=== PATIENT | male | born 1950 | race Caucasian/White ===

== ENCOUNTER 2016-10-11 04:20 | Day surgery (SDC) | payer MEDICARE, OTHER ==
[~2016-10-11] VITALS: Ht 185.4 cm; Wt 87.5 kg
[2016-10-11] VITALS (10 sets, daily range): BP systolic 121–151; BP diastolic 70–92
[~2016-10-11 04:20] MED LIST: ASPI-504 PO; ATR20T PO; CEPH-507 PO; GLIM2TAB PO; GLIMEPRIDE; HYDR-1231 PO; HYDR-3876 PO; INDO25CA PO; LISI-552 PO; LISI10TA2 PO; METH4TAB PO; MTF500T PO; MTP25TSR PO; OMEP-10 PO; ROSU20TA PO; SULF1TAB35 PO; SULI150T PO
--- OUTSIDE RECORDS SUMMARY | 2016-10-11 04:26 | XMS REPORT | Continuity of Care Document ---
Author Author [facility] Organization [facility] Address Unknown Phone Unavailable Allergies Active Description Code Type Severity Reaction Onset Reported/Identified Relationship to Patient Clinical Status Yes No Known Drug Allergies [id number] Drug Allergy Unknown N/ A 05/16/2013 Medications Problems Date Dx Coded Attending Type Code Diagnosis Diagnosed By 05/16/2013 NATAN CISSE DO Ot 682.6 05/16/2013 NATAN CISSE DO Ot 719.45 09/10/2013 GELLENDER DO AUGIE Ghotra Ot 250.00 09/10/2013 GELLENDER DO AUGIE Ghotra Ot 272.4 09/10/2013 GELLENDER DO AUGIE Ghotra Ot 401.9 09/10/2013 GELLENDER DO AUGIE Ghotra Ot 729.89 09/10/2013 GELLENDER DO AUGIE Ghotra Ot 781.94 09/10/2013 GELLENDER DO, AUGIE Ghotra Ot 782.0 09/10/2013 GELLENDER DO AUGIE Ghotra Ot 786.05 09/10/2013 GELLENDER DO AUGIE Ghotra Ot 786.52 01/06/2014 GELLENDER DO AUGIE Ghotra Ot 603.9 02/23/2015 BAIBLAIR GALAN STRUCTURAL MANAGER Ot 272.4 02/23/2015 BAIBLAIR GALAN STRUCTURAL MANAGER Ot 401.9 02/23/2015 BAIBLAIR GALAN STRUCTURAL MANAGER Ot 427.1 02/23/2015 BLAIR RUCKER STRUCTURAL MANAGER Ot 786.50 02/23/2015 BLAIR RUCKER STRUCTURAL MANAGER Ot V58.69 02/23/2015 GELLENDER DOAUGIE Paradise Ot 603.9 03/15/2015 SANGEETHA LYNN, NIKKI Ghotra Ot E11.9 03/15/2015 SANGEETHA LYNN, NIKKI Ghotra Ot N43.3 03/30/2015 Ot N43.3 03/30/2015 Ot Z01.818 03/30/2015 Ot Z11.2 Procedures Results Encounters ACCT No. Visit Date/Time Discharge Status Pt. Type Provider Facility Loc./Unit Complaint [id number] 03/15/2015 06:00:00 2015 10:38:00 DIS Outpatient [facility] [id number] 02/23/2015 10:34:00 2015 23:59:59 CLS Outpatient AUGIE DOUGLASS DO [facility] RAD [id number] 12/24/2013 11:07:00 2013 23:59:59 CLS Outpatient AUGIE DOUGLASS DO [facility] RAD [id number] 11/23/2013 08:21:00 2013 23:59:59 CLS Outpatient BLAIR RUCKER [facility] CARD [id number] 09/08/2013 23:46:00 2013 11:15:00 DIS Inpatient AUGIE DOUGLASS DO [facility] ICU [id number] 05/16/2013 03:28:00 2013 04:10:00 DIS Emergency NATAN CISSE DO [facility] ER [id number] 03/09/2015 12:55:00 Document Registration
[2016-10-11] MEDS ORDERED: morphine INJ 10 MG/ML 1ML (SYR OR VIAL) IV STA (04:31)
[2016-10-11] MEDS ORDERED: NS IV 500 ML 500 ML IV ONE ×2 (04:31→05:03)
[2016-10-11 04:39] LABS: BASOPHILS # (AUTO) 0.1 10^3/uL (0.0-0.1); BASOPHILS % (AUTO) 1 % (0-10); EOSINOPHILS # (AUTO) 0.3 10^3/uL (0.0-0.3); EOSINOPHILS % (AUTO) 3 % (0-10); LYMPHOCYTES # (AUTO) 2.5 X 10^3 (1.0-4.0); LYMPHOCYTES % (AUTO) 34 % (12-44); MEAN CORPUSCULAR HEMOGLOBIN 24 PG (25-34); MEAN CORPUSCULAR HGB CONC 33 G/DL (32-36); MEAN CORPUSCULAR VOLUME 75 FL (80-99); MEAN PLATELET VOLUME 9.9 FL (7.4-10.4); MONOCYTES # (AUTO) 0.6 X 10^3 (0.0-1.0); MONOCYTES % (AUTO) 9 % (0-12); NEUTROPHILS # (AUTO) 3.9 X 10^3 (1.8-7.8); NEUTROPHILS % (AUTO) 53 % (42-75); PLATELET COUNT 351 10^3/uL (130-400); RED BLOOD COUNT 5.16 10^6/uL (4.35-5.85); RED CELL DISTRIBUTION WIDTH 16.4 % (10.0-14.5); WHITE BLOOD COUNT 7.4 10^3/uL (4.3-11.0)
[2016-10-11] MEDS ORDERED: ASPIRIN 81 MG CHEW (CHILDREN'S ASA) PO ONE (04:45)
[2016-10-11] MEDS ORDERED: RX-NITROGLYCERIN 0.4 MG TAB BTL 25'S SL PRN (04:45)
[2016-10-11 04:52] LABS: INR 0.8 (0.8-1.4); PROTHROMBIN TIME PATIENT 11.5 SEC (12.2-14.7)
--- NOTE | 2016-10-11 04:54 | ED Chest Pain ---
General Chief Complaint: Chest Pain Stated Complaint: CHEST PAIN,DIZZINESS Nursing Triage Note: PT REPORTS HE HAS CP RADIATING TO HIS NECK THAT WOKE HIM FROM HIS SLEEP AT APPROX 0200 THIS AM. HE ALSO C/O HTN AND DIZZINESS. HE DENIES N/V, DIAPHORESIS, OR SOA. PT REPORTS TAKING 162 MG [employer]. Nursing Sepsis Screen: No Definite Risk Source: patient, spouse Exam Limitations: no limitations (ENRRIQUE BUTLER) History of Present Illness Time seen by provider: 04:42 Initial Comments Patient presents to ER by private conveyance with a chief complaint of being woken just prior to arrival by some left sided chest pain that radiates up his neck both sides to his jaw. He has no numbness tingling, sweats, nausea, vomiting, shortness of breath, cough, weakness, palpitations. He does not smoke however he is diabetic but not on insulin. He does not have thyroid disease but does have high blood pressure. He did have a father with stroke and heart attack at age 49. He himself has never had coronary artery disease. He says he has had 2 negative stress tests in the last for 5 years. He does have hypercholesterolemia and is on simvastatin for it. (ENRRIQUE BUTLER) Allergies and Home Medications Allergies Coded Allergies: No Known Drug Allergies (Unverified , 05/16/13) Home Medications Cephalexin 500 Mg Capsule, 500 MG PO BID, #10 Prescribed by: LESTER HARPER on 03/15/15 0818 Glimepiride 2 Mg Tablet, 2 MG PO DAILY, (Reported) Hydrocodone/Acetaminophen 1 Each Tablet, 1-2 EACH PO PRN, #30 Prescribed by: LESTER HARPER on 03/15/15 0818 Lisinopril 20 Mg Tablet, 20 MG PO DAILY, (Reported) Metformin Hcl 500 Mg Tablet, 500 MG PO BID WITH MEALS, (Reported) Rosuvastatin Calcium 20 Mg Tablet, 20 MG PO HS, (Reported) Review of Systems Constitutional: see HPI, No chills, No diaphoresis Respiratory: Denies Cough, Denies Orthopnea, Denies Shortness of Air Cardiovascular: See HPI, Chest Pain, Denies Edema, Denies Irregular Heart Rate , Denies Syncope Gastrointestinal: Denies Diarrhea, Denies Nausea Genitourinary: Denies Burning, Denies Discharge Musculoskeletal: No back pain, No joint pain Skin: No pruritus, No rash Psychiatric/Neurological: Headache, Denies Numbness, Denies Paresthesia (ENRRIQUE BUTLER) Past Pmhtgxo-Qopdtc-Dzciqj Hx Patient Social History Alcohol Use: Denies Use Recreational Drug Use: No Smoking Status: Never a Smoker 2nd Hand Smoke Exposure: No Recent Foreign Travel: No Contact w/Someone Who Travel: No Recent Infectious Disease Expo: No Physical Abuse: No Sexual Abuse: No (ENRRIQUE BUTLER) Immunizations Up To Date Tetanus Booster (TDap): Unknown Date of Pneumonia Vaccine: Mar 15, 2013 Date of Influenza Vaccine: Feb 17, 2015 (ENRRIQUE BUTLER) Surgeries History of Surgeries: Yes (CATARACTS, EYELID TUCK, ) Surgeries: Testicular (ENRRIQUE BUTLER) Respiratory History of Respiratory Disorde: No (ENRRIQUE BUTLER) Cardiovascular History of Cardiac Disorders: Yes Cardiac Disorders: High Cholesterol, Hypertension (ENRRIQUE BUTLER) Neurological History of Neurological Disord: No (ENRRIQUE BUTLER) Gastrointestinal History of Gastrointestinal Di: No (ENRRIQUE BUTLER) Musculoskeletal History of Musculoskeletal Dis: No Musculoskeletal Disorders: Gout (ENRRIQUE BUTLER) Endocrine History of Endocrine Disorders: Yes Endocrine Disorders: Diabetes, Non-Insulin dep (ENRRIQUE BUTLER) Cancer History of Cancer: No (ENRRIQUE BUTLER) Psychosocial History of Psychiatric Problem: No Suicide Risk Score: 0 (ENRRIQUE BUTLER) Integumentary History of Skin or Integumenta: No (ENRRIQUE BUTLER) Blood Transfusions History of Blood Disorders: No (ENRRIQUE BUTLER) Family Medical History Family Medial History: Cataract 19 FATHER Chest pain 19 MOTHER Dementia 19 MOTHER Family history: Alzheimer's disease 19 MOTHER Family history: Arthritis 19 MOTHER Family history: Diabetes mellitus 19 MOTHER Family history: Hypertension 19 FATHER 19 MOTHER G8 SISTER Headache Hypercholesterolemia 19 FATHER 19 MOTHER G8 SISTER Kidney disease 19 FATHER Prostate cancer 19 FATHER Stroke 19 FATHER Visual impairment 19 MOTHER G8 BROTHER G8 BROTHER G8 SISTER No Family History of: Abdominal aortic aneurysm Michael's disease Alcoholism Aphasia Cancer Cancer of colon Congenital heart disease Congestive heart failure Cystic fibrosis Dysphagia Family history: Allergy Family history: Asthma Family history: Breast disease Family history: Cardiovascular disease Family history: Coronary thrombosis Family history: Gastrointestinal disease Family history: Glaucoma Family history: Osteoporosis Family history: Thyroid disorder Hearing loss Heart disease Hereditary disease History of - anemia History of - disorder History of - respiratory disease History of drug abuse Human immunodeficiency virus (HIV) seropositivity Infertile Malignant neoplasm of lung Myocardial infarction Parkinson's disease Psychotic disorder Seizure disorder Tuberculosis (ENRRIQUE BUTLER) Family Medial History: Cataract 19 FATHER Chest pain 19 MOTHER Dementia 19 MOTHER Family history: Alzheimer's disease 19 MOTHER Family history: Arthritis 19 MOTHER Family history: Diabetes mellitus 19 MOTHER Family history: Hypertension 19 FATHER 19 MOTHER G8 SISTER Headache Hypercholesterolemia 19 FATHER 19 MOTHER G8 SISTER Kidney disease 19 FATHER Prostate cancer 19 FATHER Stroke 19 FATHER Visual impairment 19 MOTHER G8 BROTHER G8 BROTHER G8 SISTER No Family History of: Abdominal aortic aneurysm Michael's disease Alcoholism Aphasia Cancer Cancer of colon Congenital heart disease Congestive heart failure Cystic fibrosis Dysphagia Family history: Allergy Family history: Asthma Family history: Breast disease Family history: Cardiovascular disease Family history: Coronary thrombosis Family history: Gastrointestinal disease Family history: Glaucoma Family history: Osteoporosis Family history: Thyroid disorder Hearing loss Heart disease Hereditary disease History of - anemia History of - disorder History of - respiratory disease History of drug abuse Human immunodeficiency virus (HIV) seropositivity Infertile Malignant neoplasm of lung Myocardial infarction Parkinson's disease Psychotic disorder Seizure disorder Tuberculosis (YOLETTE LIND MD) Physical Exam Vital Signs Vital Sign - Last 12Hours (YOLETTE LIND MD) Vital Signs Capillary Refill : Less Than 3 Seconds (ENRRIQUE BUTLER) General Appearance: WD/WN, Anxious, Mild Distress HEENT: PERRL/EOMI, Pharynx Normal Neck: Full Range of Motion, Normal Inspection, Supple Respiratory: Chest Non Tender, Lungs Clear, Normal Breath Sounds, No Accessory Muscle Use Cardiovascular: Regular Rate, Rhythm, No Edema, No Gallop Gastrointestinal: Normal Bowel Sounds, No Organomegaly, Non Tender, Soft Extremity: Normal Capillary Refill, Normal Inspection, Non Tender, No Calf Tenderness, No Pedal Edema Neurologic/Psychiatric: Alert, Oriented x3 Skin: Normal Color, Warm/Dry (ENRRIQUE BUTLER) Progress/Results/Core Measures Results/Orders Lab Results Laboratory Tests Test 10/11/16 04:28 Range/Units White Blood Count 7.4 4.3-11.0 10^3/uL Red Blood Count 5.16 4.35-5.85 10^6/uL Hemoglobin 12.6 L 13.3-17.7 G/DL Hematocrit 39 L 40-54 % Mean Corpuscular Volume 75 L 80-99 FL Mean Corpuscular Hemoglobin 24 L 25-34 PG Mean Corpuscular Hemoglobin Concent 33 32-36 G/DL Red Cell Distribution Width 16.4 H 10.0-14.5 % Platelet Count 351 130-400 10^3/uL Mean Platelet Volume 9.9 7.4-10.4 FL Neutrophils (%) (Auto) 53 42-75 % Lymphocytes (%) (Auto) 34 12-44 % Monocytes (%) (Auto) 9 0-12 % Eosinophils (%) (Auto) 3 0-10 % Basophils (%) (Auto) 1 0-10 % Neutrophils # (Auto) 3.9 1.8-7.8 X 10^3 Lymphocytes # (Auto) 2.5 1.0-4.0 X 10^3 Monocytes # (Auto) 0.6 0.0-1.0 X 10^3 Eosinophils # (Auto) 0.3 0.0-0.3 10^3/uL Basophils # (Auto) 0.1 0.0-0.1 10^3/uL Prothrombin Time 11.5 L 12.2-14.7 SEC INR Comment 0.8 0.8-1.4 Activated Partial Thromboplast Time 27 24-35 SEC D-Dimer 1.62 H 0.00-0.49 UG/ML Sodium Level 135 135-145 MMOL/L Potassium Level 4.3 3.6-5.0 MMOL/L Chloride Level 102 98-107 MMOL/L Carbon Dioxide Level 22 21-32 MMOL/L Anion Gap 11 5-14 MMOL/L Blood Urea Nitrogen 15 7-18 MG/DL Creatinine 1.30 0.60-1.30 MG/DL Estimat Glomerular Filtration Rate 55 BUN/Creatinine Ratio 12 Glucose Level 219 H 70-105 MG/DL Calcium Level 9.6 8.5-10.1 MG/DL Magnesium Level 1.5 L 1.8-2.4 MG/DL Total Bilirubin 0.2 0.1-1.0 MG/DL Aspartate Amino Transf (AST/SGOT) 15 5-34 U/L Alanine Aminotransferase (ALT/SGPT) 20 0-55 U/L Alkaline Phosphatase 82 40-136 U/L Myoglobin 48.0 10.0-92.0 NG/ML Troponin I < 0.30 <0.30 NG/ML Total Protein 7.3 6.4-8.2 GM/DL Albumin 4.0 3.2-4.5 GM/DL Lipase 89 H 8-78 U/L (YOLETTE LIND MD) Medications Given in ED Current Medications Medications Dose Ordered Sig/Chapito Route Start Time Stop Time Status Last Admin Dose Admin Aspirin 162 mg ONCE ONCE PO 10/11/16 04:45 10/11/16 04:46 DC 10/11/16 04:49 162 MG Iohexol 100 ml ONCE ONCE IV 10/11/16 06:00 10/11/16 06:37 DC 10/11/16 05:59 100 ML Magnesium Oxide 400 mg ONCE ONCE PO 10/11/16 05:30 10/11/16 05:31 DC 10/11/16 06:32 400 MG Nitroglycerin 0.4 mg PRN PRN SL 10/11/16 04:45 10/11/16 04:49 0.4 MG Pantoprazole 40 mg ONCE ONCE IV 10/11/16 05:45 10/11/16 05:46 DC 10/11/16 06:32 40 MG Sodium Chloride 80 ml ONCE ONCE IV 10/11/16 06:00 10/11/16 06:37 DC 10/11/16 05:59 80 ML Sodium Chloride 500 ml @ 0 mls/hr Q0M ONCE IV 10/11/16 04:31 10/11/16 04:35 DC 10/11/16 04:49 0 MLS/HR Sodium Chloride 500 ml @ 0 mls/hr Q0M ONCE IV 10/11/16 05:03 10/11/16 05:04 DC 10/11/16 05:00 0 MLS/HR Sodium Chloride 1,000 ml @ 0 mls/hr Q0M ONCE IV 10/11/16 05:29 10/11/16 05:31 DC 10/11/16 06:05 0 MLS/HR (YOLETTE LIND MD) Vital Signs/I&O Vital Sign - Last 12Hours 10/11/16 10/11/16 10/11/16 04:20 04:20 04:30 Temp 98.2 Pulse 67 Resp 18 B/P (MAP) 169/98 Pulse Ox 97 99 O2 Delivery Room Air Nasal Cannula Nasal Cannula O2 Flow Rate 2.0 2.0 2.00 (YOLETTE LIND MD) Blood Pressure Mean: 121 Progress Note #1: Time: 04:51 Progress Note For chest pain that started just prior to arrival is unlikely we will be able to rule out single troponin and EKG. Initial EKG is unremarkable so we'll go ahead and give him nitroglycerin and couple milligrams of morphine as well as oxygen and see how this helps his symptoms. If it'll make a big difference then we will try a GI cocktail as well. Progress Note #2: Time: 05:02 Progress Note EMS informs me that he will not be able to transport the patient will after 8: 00. About that time is when troponin and EKG #2 would be do so we'll go ahead and order them scheduled. Patient is stable with modest moderate chest pain. Blood pressures in the 170s over 90s. Progress Note #3: Time: 05:36 Progress Note Pancreatic enzyme elevated. We'll go ahead and get a CT abdomen pelvis with contrast give him another liter fluids is to be towed total. He did have a hypotensive episode after receiving the nitroglycerin. He felt that after receiving the morphine his pain did improve some. We'll also give him a PPI. (ENRRIQUE BUTLER) Progress Note : Time: 07:09 Progress Note Telephone consultation was undertaken with Dr. Gamble was kind enough to admit the patient. Orders been written patient will be transferred to floor. I consult Dr. Mireles as well. (YOLETTE LIND MD) ECG Initial ECG Impression Date: Oct 11, 2016 Initial ECG Impression Time: 04:25 Initial ECG Rate: 59 Initial ECG Rhythm: Normal Sinus Initial ECG Intervals: VT (212) Initial ECG Impression: Nonspecific Changes (right bundle-branch block) Initial ECG Comparisson: No Previous ECG Available Comment No ST wave elevation or depression. (ENRRIQUE BUTLER) Diagnostic Imaging Diagonstic Imaging: Xray Plain Films/CT/US/NM/MRI: chest Reviewed: Reviewed by Me (ENRRIQUE BUTLER) Transfer of Care Transfer of Care Time: 06:32 Care transferred to: [place] (ENRRIQUE BUTLER) Departure Communication Time/Spoke to Admitting Phy: 07:[address] Douglass. Time/Spoke to Consulting Physi: 07:11 Communication/Consulting Dr. Mireles. (YOLETTE LIND MD) Impression Impression: Primary Impression: Chest pain Qualified Codes: R07.9 - Chest pain, unspecified Disposition: 09 ADMITTED INPATIENT Condition: Improved Admissions Decision to Admit Reason: Admit from ER (General) Decision to Admit/Date: Oct 11, 2016 Time/Decision to Admit Time: 07:11 (YOLETTE LIND MD) Departure-Patient Inst. Referrals: AUGIE DOUGLASS DO (PCP/Family) Primary Care Physician Copy Copies To 1: AUGIE DOUGLASS TITUS J Oct 11, 2016 04:54 YOLETTE LIND MD Oct 11, 2016 07:12
[2016-10-11 04:59] LABS: ALANINE AMINOTRANSFERASE 20 U/L (0-55); ANION GAP 11 MMOL/L (5-14); ASPARTATE AMINO TRANSFERASE 15 U/L (5-34); BILIRUBIN,TOTAL 0.2 MG/DL (0.1-1.0); BLOOD UREA NITROGEN 15 MG/DL (7-18); BUN/CREATININE RATIO 12; CALCIUM 9.6 MG/DL (8.5-10.1); CARBON DIOXIDE 22 MMOL/L (21-32); CHLORIDE 102 MMOL/L (98-107); GFR ESTIMATED 55; GLUCOSE 219 MG/DL (70-105); LIPASE 89 U/L (8-78); MAGNESIUM 1.5 MG/DL (1.8-2.4); POTASSIUM 4.3 MMOL/L (3.6-5.0); SODIUM 135 MMOL/L (135-145); TOTAL PROTEIN 7.3 GM/DL (6.4-8.2)
[2016-10-11] MEDS ORDERED: NS IV 1000 ML 1,000 ML IV ONE (05:29)
[2016-10-11] MEDS ORDERED: MAGNESIUM OXIDE (MAG-OX)400 MG TAB PO ONE (05:30)
[2016-10-11] MEDS ORDERED: PANTOPRAZOLE 40 MG/10 ML (PROTONIX) VIAL IV ONE (05:45)
[2016-10-11] MEDS ORDERED: IOHEXOL 350 MG/ML 100 ML (OMNIPAQUE 350) VIAL IV ONE (06:00)
[2016-10-11] MEDS ORDERED: NS 100 ML (IVPB) BAG IV ONE (06:00)
--- OUTSIDE RECORDS SUMMARY | 2016-10-11 08:03 | XMS REPORT | Continuity of Care Document ---
Author Author [facility] Organization [facility] Address Unknown Phone Unavailable Allergies Active Description Code Type Severity Reaction Onset Reported/Identified Relationship to Patient Clinical Status Yes No Known Drug Allergies [id number] Drug Allergy Unknown N/ A 05/16/2013 Medications [...] AUGIE Ghotra Ot 603.9 02/23/2015 BAIBLAIR GALAN RELASTER Ot 272.4 02/23/2015 BAIBLAIR GALAN RELASTER Ot 401.9 02/23/2015 BAIBLAIR GALAN RELASTER Ot 427.1 02/23/2015 BLAIR RUCKER RELASTER Ot 786.50 02/23/2015 BLAIR RUCKER RELASTER Ot V58.69 02/23/2015 GELLENDER DOAUGIE Paradise Ot 603.9 03/15/2015 SANGEETHA LYNN, NIKKI Ghotra Ot E11.9 03/15/2015 SANGEETHA LYNN, NIKKI Ghotra Ot N43.3 03/30/2015 Ot N43.3 03/30/2015 Ot Z01.818 03/30/2015 Ot Z11.2 Procedures Results Encounters ACCT No. Visit Date/Time Discharge Status Pt. Type Provider Facility Loc./Unit Complaint [id number] 03/15/2015 06:00:00 2015 10:38:00 DIS Outpatient [facility] [id number] 02/23/2015 10:34:00 2015 23:59:59 CLS Outpatient AUGIE DOUGLASS DO [facility] RAD [id number] 12/24/2013 11:07:00 2013 23:59:59 CLS Outpatient AUGIE DOUGLASS DO [facility] RAD [id number] 11/23/2013 08:21:00 2013 23:59:59 CLS Outpatient BLAIR RUCKER [facility] CARD [id number] 09/08/2013 23:46:00 2013 11:15:00 DIS Inpatient AUGIE DOUGLASS DO [facility] ICU [id number] 05/16/2013 03:28:00 2013 04:10:00 DIS Emergency NATAN CISSE DO [facility] ER [id number] 03/09/2015 12:55:00 Document Registration
[2016-10-11] MEDS ORDERED: NITROGLYCERIN SUBLINGUAL 0.4 MG TAB (NITROSTAT) SL PRN (08:30)
[2016-10-11] MEDS ORDERED: morphine INJ 4 MG/ML 1 ML (VIAL/SYRINGE) IV PRN (08:30)
[2016-10-11] MEDS ORDERED: CATHETER FLUSH 10 ML SYR IV PRN (08:30)
[2016-10-11] MEDS ORDERED: ONDANSETRON 4 MG/2 ML (SDV) Z0FRAN IV PRN (08:30)
--- NOTE | 2016-10-11 08:31 | Diagnostic Imaging Report ---
INDICATION: Chest pain. Frontal chest obtained at 5:09 a.m. and compared to 09/08/13. FINDINGS: Heart and mediastinal silhouette are normal in appearance. The lungs are clear. There is no pneumothorax or pleural fluid. IMPRESSION: No acute process in the chest. Dictated by: Dictated on workstation # [id number]
--- NOTE | 2016-10-11 08:43 | History & Physicial ---
History of Present Illness History of Present Illness Reason for visit/HPI chest pain. Patient at home sleeping and chest pain woke him out of the sleep. Pain went to the neck and had a headache and was dizzy. Patient states he took 2 baby aspirin came out to the emergency room. Blood pressure was elevated and felt like a squeezing in his chest Patient known diabetic. Surgeries cataract and testicular tumor Father heart attack age 49 and diabetes family Date of Admission Oct 11, 2016 at 05:55 Time Seen by Provider: 08:35 I consulted on this patient on 10/11/16 08:39 Attending Physician Frederick Douglass DO Admitting Physician Frederick Douglass DO Consult Allergies and Home Medications Allergies Coded Allergies: No Known Drug Allergies (Unverified , 05/16/13) Home Medications Cephalexin 500 Mg Capsule, 500 MG PO BID, #10 Prescribed by: LESTER HARPER on 03/15/15 0818 Glimepiride 2 Mg Tablet, 2 MG PO DAILY, (Reported) Hydrocodone/Acetaminophen 1 Each Tablet, 1-2 EACH PO PRN, #30 Prescribed by: LESTER HARPER on 03/15/15 0818 Lisinopril 20 Mg Tablet, 20 MG PO DAILY, (Reported) Metformin Hcl 500 Mg Tablet, 500 MG PO BID WITH MEALS, (Reported) Rosuvastatin Calcium 20 Mg Tablet, 20 MG PO HS, (Reported) Past Affrvrl-Colvqb-Jeywwk Hx Patient Social History Marrital Status: Employed/Student: employed Alcohol Use: Denies Use Recreational Drug Use: No Smoking Status: Never a Smoker 2nd Hand Smoke Exposure: No Recent Foreign Travel: No Contact w/other who traveled: No Recent Infectious Disease Expo: No Immunizations Up To Date Tetanus Booster (TDap): Unknown Date of Pneumonia Vaccine: Mar 15, 2013 Date of Influenza Vaccine: Feb 17, 2015 Surgeries Yes (CATARACTS, EYELID TUCK, ) Eye Surgery, Testicular Respiratory No Cardiovascular Yes High Cholesterol, Hypertension Neurological No Gastrointestinal No Musculoskeletal No Gout Endocrine History of Endocrine Disorders: Yes Endocrine Disorders: Diabetes, Non-Insulin dep Cancer No Psychosocial History of Psychiatric Problem: No Integumentary History of Skin or Integumenta: No Blood Transfusions History of Blood Disorders: No Family Medical History Family Hx: Cataract 19 FATHER Chest pain 19 MOTHER Dementia 19 MOTHER Family history: Alzheimer's disease 19 MOTHER Family history: Arthritis 19 MOTHER Family history: Diabetes mellitus 19 MOTHER Family history: Hypertension 19 FATHER 19 MOTHER G8 SISTER Headache Hypercholesterolemia 19 FATHER 19 MOTHER G8 SISTER Kidney disease 19 FATHER Prostate cancer 19 FATHER Stroke 19 FATHER Visual impairment 19 MOTHER G8 BROTHER G8 BROTHER G8 SISTER No Family History of: Abdominal aortic aneurysm [place]'s disease Alcoholism Aphasia Cancer Cancer of colon Congenital heart disease Congestive heart failure Cystic fibrosis Dysphagia Family history: Allergy Family history: Asthma Family history: Breast disease Family history: Cardiovascular disease Family history: Coronary thrombosis Family history: Gastrointestinal disease Family history: Glaucoma Family history: Osteoporosis Family history: Thyroid disorder Hearing loss Heart disease Hereditary disease History of - anemia History of - disorder History of - respiratory disease History of drug abuse Human immunodeficiency virus (HIV) seropositivity Infertile Malignant neoplasm of lung Myocardial infarction Parkinson's disease Psychotic disorder Seizure disorder Tuberculosis Constitutional: dizziness, other (headache chest pain) EENTM: no symptoms reported Respiratory: no symptoms reported Cardiovascular: chest pain Gastrointestinal: no symptoms reported Genitourinary: no symptoms reported Physical Exam Vital Signs Vital Sign - Last 12Hours Capillary Refill : Less Than 3 Seconds General Appearance: No Apparent Distress, WD/WN Eyes: Bilateral Eye Normal Inspection HEENT: Normal ENT Inspection Neck: Full Range of Motion, Non Tender Respiratory: Lungs Clear, No Accessory Muscle Use, No Respiratory Distress Cardiovascular: Regular Rate, Rhythm, No Murmur Gastrointestinal: Non Tender, Soft Assessment/Plan Assessment and Plan chest pain. Headache. Dizziness. Hypertension. Diabetes. Hyperlipidemia Problems: Clinical Quality Measures AMI/AHF: ASA po Prior to arrival: Yes (162) FREDERICK DOUGLASS DO Oct 11, 2016 08:43
[2016-10-11] MEDS ORDERED: ENOXAPARIN 40 MG/0.4 ML (LOVENOX) SYR SC SCH (08:45)
[2016-10-11] MEDS ORDERED: ASPIRIN E.C. 325 MG (ECOTRIN) TABLET PO SCH (09:00)
--- NOTE | 2016-10-11 09:05 | Diagnostic Imaging Report ---
PROCEDURE: CT abdomen and pelvis with contrast. TECHNIQUE: Multiple contiguous axial images were obtained through the abdomen and pelvis after administration of intravenous contrast. INDICATION: Radiating chest pain. FINDINGS: The lung bases are clear. The liver, gallbladder, spleen, adrenals and pancreas unremarkable. There is no kidney stone or hydronephrosis. There is no ascites, abscess, hematoma or fluid collection. There is herniation of a short segment of unobstructed small bowel into the upper aspect of a right inguinal hernia. A left inguinal hernia is entirely fatty. There is no evidence for obstruction or strangulation. There is a noninflamed sigmoid diverticulosis. Prostate, seminal vesicles and urinary bladder unremarkable. Some questionable thickening of the carrillo of a segment of mid to distal small bowel at and below the level of the umbilicus. The possibility of mild regional enteritis could not be excluded this is probably at least exaggerated by lack of luminal distention. There was no perienteric edema. The appendix is air-containing and normal. IMPRESSION: Bilateral inguinal hernias fatty on the left and comprised of a short segment of nonobstructed small bowel on the right. Normal appendix with noninflamed diverticulosis. A questionable findings for mild of small bowel wall thickening mid to distally without perienteric edema. Unobstructed urinary tracts. No biliary abnormality. Dictated by: Dictated on workstation # [id number]
--- NOTE | 2016-10-11 09:08 | Consultation-Cardiology ---
HPI-Cardiology Cardiology Consultation Date of Consultation 10/11/16 Date of Admission Time Seen by Provider: 09:05 Indication: chest pain HPI 66 years old gentleman with history of hypertension, hyperlipidemia and diabetes mellitus, was in his usual state of health until early this morning, around midnight he woke up with chest pressure, all over his chest and pin pointing some discomfort at the left side of his chest, had some neck pain, felt slightly dizzy and lightheaded, no shortness of breath. Laid down and try to wait it out, took 2 AB aspirin without improvement. Came into the emergency room and given sublingual nitroglycerin and reported improvement of his pain. Patient reporting having stress test done a few years ago and it was normal. He is currently chest pain-free, EKG and cardiac enzymes did not show any acute abnormality Home Medications & Allergies Allergies: Coded Allergies: No Known Drug Allergies (Unverified , 05/16/13) Home Medication List Reviewed: Yes [id number] Hx Patient Social History Marital Status: Employed/Student: employed Alcohol Use: Denies Use Recreational Drug Use: No Smoking Status: Never a Smoker 2nd Hand Smoke Exposure: No Recent Foreign Travel: No Recent Infectious Disease Expo: No Immunizations Up To Date Tetanus Booster (TDap): Unknown Date of Pneumonia Vaccine: Mar 15, 2013 Date of Influenza Vaccine: Feb 17, 2015 Past Medical History past medical history as discussed below Family Medical History Family History: 19 FATHER Cataract Family history: Hypertension Hypercholesterolemia Kidney disease Prostate cancer Stroke 19 MOTHER Chest pain Dementia Family history: Alzheimer's disease Family history: Arthritis Family history: Diabetes mellitus Family history: Hypertension Hypercholesterolemia Visual impairment G8 BROTHER Visual impairment G8 BROTHER Visual impairment G8 SISTER Family history: Hypertension Hypercholesterolemia Visual impairment Relation not specified for: Headache Constitutional: no symptoms reported, see HPI EENTM: see HPI, no symptoms reported Respiratory: no symptoms reported, see HPI Cardiovascular: see HPI, chest pain, No edema, No Hx of Intervention, No palpitations, No syncope, No vascular heart diseas, No other Gastrointestinal: no symptoms reported, see HPI Genitourinary: no symptoms reported, see HPI Musculoskeletal: no symptoms reported, see HPI Skin: no symptoms reported, see HPI Psychiatric/Neurological: No Symptoms Reported, See HPI Reviewed Test Results Reviewed Test Results Lab Laboratory Tests Test 10/11/16 04:28 Range/Units White Blood Count 7.4 4.3-11.0 10^3/uL Red Blood Count 5.16 4.35-5.85 10^6/uL Hemoglobin 12.6 L 13.3-17.7 G/DL Hematocrit 39 L 40-54 % Mean Corpuscular Volume 75 L 80-99 FL Mean Corpuscular Hemoglobin 24 L 25-34 PG Mean Corpuscular Hemoglobin Concent 33 32-36 G/DL Red Cell Distribution Width 16.4 H 10.0-14.5 % Platelet Count 351 130-400 10^3/uL Mean Platelet Volume 9.9 7.4-10.4 FL Neutrophils (%) (Auto) 53 42-75 % Lymphocytes (%) (Auto) 34 12-44 % Monocytes (%) (Auto) 9 0-12 % Eosinophils (%) (Auto) 3 0-10 % Basophils (%) (Auto) 1 0-10 % Neutrophils # (Auto) 3.9 1.8-7.8 X 10^3 Lymphocytes # (Auto) 2.5 1.0-4.0 X 10^3 Monocytes # (Auto) 0.6 0.0-1.0 X 10^3 Eosinophils # (Auto) 0.3 0.0-0.3 10^3/uL Basophils # (Auto) 0.1 0.0-0.1 10^3/uL Prothrombin Time 11.5 L 12.2-14.7 SEC INR Comment 0.8 0.8-1.4 Activated Partial Thromboplast Time 27 24-35 SEC D-Dimer 1.62 H 0.00-0.49 UG/ML Sodium Level 135 135-145 MMOL/L Potassium Level 4.3 3.6-5.0 MMOL/L Chloride Level 102 98-107 MMOL/L Carbon Dioxide Level 22 21-32 MMOL/L Anion Gap 11 5-14 MMOL/L Blood Urea Nitrogen 15 7-18 MG/DL Creatinine 1.30 0.60-1.30 MG/DL Estimat Glomerular Filtration Rate 55 BUN/Creatinine Ratio 12 Glucose Level 219 H 70-105 MG/DL Calcium Level 9.6 8.5-10.1 MG/DL Magnesium Level 1.5 L 1.8-2.4 MG/DL Total Bilirubin 0.2 0.1-1.0 MG/DL Aspartate Amino Transf (AST/SGOT) 15 5-34 U/L Alanine Aminotransferase (ALT/SGPT) 20 0-55 U/L Alkaline Phosphatase 82 40-136 U/L Myoglobin 48.0 10.0-92.0 NG/ML Troponin I < 0.30 <0.30 NG/ML Total Protein 7.3 6.4-8.2 GM/DL Albumin 4.0 3.2-4.5 GM/DL Lipase 89 H 8-78 U/L Physical Exam Vital Signs Vital Sign - Last 12Hours Capillary Refill : Less Than 3 Seconds General Appearance: No Apparent Distress, WD/WN Eyes: Bilateral Eye Normal Inspection, Bilateral Eye PERRL, Bilateral Eye EOMI HEENT: PERRL/EOMI, TMs Normal, Normal ENT Inspection, Pharynx Normal Neck: Full Range of Motion, Normal Inspection, Non Tender, Supple, Carotid Bruit Respiratory: Chest Non Tender, Lungs Clear, Normal Breath Sounds, No Accessory Muscle Use, No Respiratory Distress Cardiovascular: Regular Rate, Rhythm, No Edema, No Gallop, No JVD, No Murmur, Normal Peripheral Pulses Gastrointestinal: Normal Bowel Sounds, No Organomegaly, No Pulsatile Mass, Non Tender, Soft Back: Normal Inspection, No CVA Tenderness, No Vertebral Tenderness Extremity: Normal Capillary Refill, Normal Inspection, Normal Range of Motion, Non Tender, No Calf Tenderness, No Pedal Edema Neurologic/Psychiatric: Alert, Oriented x3, No Motor/Sensory Deficits, Normal Mood/Affect Skin: Normal Color, Warm/Dry Lymphatic: No Adenopathy A/P-Cardiology Admission Diagnosis Chest pain nonspecific etiology Hypertension Hyperlipidemia Diabetes mellitus Assessment/Plan Chest pain nonspecific etiology, resembling angina, cardiac enzymes and EKG did not show any normality, discussed with the patient management plan, he is currently chest pain-free, planning to evaluate stress test and echocardiogram Hypertension, was mildly elevated initially, blood pressure is better, I will monitor his blood pressure and evaluate echocardiogram Hyperlipidemia, monitor lipids. Continue current medications Diabetes mellitus, followed and managed by primary care physician Clinical Quality Measures AMI/AHF: ASA po Prior to arrival: Yes (162) MARCELINO CADENA MD Oct 11, 2016 09:08
[2016-10-11] MEDS ORDERED: LISI10TA2 PO (09:10)
--- NOTE | 2016-10-11 10:05 | Cardiac Procedure Note-CS/ASA ---
Pre-Procedure Note Pre-Op Procedure Note H&P Reviewed The H&P was reviewed, patient examined and no changes noted. Date H&P Reviewed: Oct 11, 2016 Time H&P Reviewed: 10:05 Conscious Sedation Pre-Proced Time Reviewed: 10:05 ASA Class: 3 Airway Mallampati Classification: (solomon appropriate class) I. II. III, IV Lungs Heart ASA score ASA 1: a normal healthy patient ASA 2: a patient with a mild systemic disease (mid diabetes, controlled hypertension, obesity x ASA 3: a patient with a severe systemic disease that limits activity (angina , COPD, prior Myocardial infarction) ASA 4: a patient with an incapacitating disease that is a constant threat to life (CHF, renal failure) ASA 5: a moribund patient not expected to survive 24 hrs. (ruptured aneurysm) ASA 6: a declared brain patient whose organs are being harvested. For emergent operations, add the letter E after the classification Grade 3 Sedation Plan: Analgesia, Amnesia, Plan communicated to team members, Discussed options with patient/fam, Discussed risks with patient/fam Note The patient is an appropriate candidate to undergo the planned procedure, sedation, and anesthesia. The patient immediately re-assessed prior to indication. MARCELINO CADENA MD Oct 11, 2016 10:05
[2016-10-11] MEDS: NS IV 1000 ML 1,000 ML IV SCH ×5 (10:25→22:32)
[2016-10-11] MEDS ORDERED: HEParin (CATH LAB) 2,000 ML IV ONE (10:37)
[2016-10-11] MEDS ORDERED: NS IV 1000 ML 0 ML ONE (10:37)
[2016-10-11] MEDS ORDERED: MV,M1TAB2 PO (10:39)
[2016-10-11] MEDS ORDERED: ASPI-983 PO (10:39)
[2016-10-11] MEDS ORDERED: OMEP20TA33 PO (10:39)
[2016-10-11] MEDS ORDERED: SIMV20TA3 PO (10:41)
[2016-10-11] MEDS ORDERED: MIDAZOLAM 5 MG/5 ML (VERSED) VIAL ONE (10:44)
[2016-10-11] MEDS ORDERED: fentaNYL INJECTION 100 MCG/2 ML AMP ONE (10:44)
[2016-10-11] MEDS ORDERED: NITROGLYCERIN DRIP 25 MG/D5W 250 ML IV ONE (11:36)
[2016-10-11] MEDS ORDERED: HEParin 1000 UNIT/ML (10ML VIAL) FOR BOLUS ONE (11:36)
[2016-10-11] MEDS ORDERED: CLOPIDOGREL 300 MG (PLAVIX) TABLET PO ONE (11:53)
[2016-10-11] MEDS ORDERED: ASPIRIN 81 MG CHEW (CHILDREN'S ASA) ONE (11:53)
--- NOTE | 2016-10-11 12:11 | Cardiac Cath Report ---
Cardiac Cath Report Physician (s)/Cement Mason Apprentice (s) Physician MARCELINO CADENA MD Pre-Procedure Diagnosis Pre-Procedure Diagnosis: coronary artery disease Post-Procedure Note Procedure Start Date: Oct 11, 2016 Procedure Start Time: 11:00 Name of Procedure: left heart catheterization, left ventricular gram Stent to the LAD Findings/Procedure Note PROCEDURE NOTE: After explaining the procedure to the patient, all pros and cons were explained, all questions were answered. The patient signed the consent and then she was placed on the cardiac catheterization laboratory. The patient was placed on the cardiac catheterization laboratory. Groin was prepped SL fashion local anesthesia was used. Sheath placed in the artery. Cheryl right and left catheter were used to access the coronary system. Pigtail was used to access the left ventricular cavity. Left ventriculogram was done Angioplasty report Patient was given 6000 units of heparin, Voda 3 guide was advanced, patient has 70 percent stenosis in the mid LAD, BMW wire was advanced through the lesion in part distally, predilatation with 3.015 balloon then a drug-eluting stent Xience Alpine 3.015 mm deployed under 12 aris, no residual stenosis, small lesion distally which is about 40 percent stenosis which will be monitored. At the end of the procedure the sheath was removed. Closure device Mynx deployed FINDINGS: Hemodynamics LV 115/18 end-diastolic pressure of 18 Aorta 115/52 with mean of 81 ANATOMY: Left Main is free of obstructive disease Left Anterior Descending has 70 percent stenosis at the mid, predilatation with balloon and then stent deployment Xience Alpine 3.015 mm with excellent results , distally there is a 40 percent stenosis which will be monitored Left Circumflex is moderate in size with mild disease nonobstructive disease Right Coronory Artery a small nondominant artery with moderate disease LV Gram was done, normal left ventricular size and function, ejection fraction 60 percent CONCLUSION: 1. 70 percent stenosis at the mid LAD, successful stenting using 3.015 mm Ion' s Alpine deployed with no complication with excellent results, 40 percent stenosis distally which will be monitored. 2. Small nondominant right coronary artery with moderate disease, mild disease in the LCX 3. Normal left ventricular size and systolic function estimated ejection fraction 60 percent DISCUSSION AND RECOMMENDATION: continue to maximize medical therapy Anesthesia Type: Conscious Sedation Estimated blood loss (mL): 25 ml Contrast Amount: 180 ml Total Radiation Dose: 882 mGy Post-Procedure Diagnosis Post-operative diagnosis: CAD MARCELINO CADENA MD Oct 11, 2016 12:11 pm
[2016-10-11] MEDS ORDERED: PATIENT MAY USE OWN MEDS, ALL PO SCH (12:15)
[2016-10-11] MEDS: lisINopril 20 MG (ZESTRIL) TAB PO SCH (14:41)
[2016-10-11] MEDS: meTOprolol TARTRATE 25 MG (LOPRESSOR) TABLET PO SCH ×2 (14:41→20:53)
[2016-10-11] MEDS ORDERED: ROSUVASTATIN 20 MG (CRESTOR) TABLET PO SCH (21:00)
[2016-10-12] VITALS: BP 125/76
[2016-10-12] MEDS ORDERED: ACETAMINOPHEN 325 MG TABLET/CAPLET (TYLENOL) PO PRN (01:15)
[2016-10-12] MEDS ORDERED: IBUPROFEN 600 MG (MOTRIN) TAB PO PRN (01:15)
[2016-10-12 04:00] VITALS: BP 117/71
[2016-10-12 05:17] LABS: MEAN PLATELET VOLUME 10.5 FL (7.4-10.4); RED BLOOD COUNT 4.42 10^6/uL (4.35-5.85); RED CELL DISTRIBUTION WIDTH 16.3 % (10.0-14.5); WHITE BLOOD COUNT 7.1 10^3/uL (4.3-11.0)
[2016-10-12 05:41] LABS: CREATININE SERUM 1.22 MG/DL (0.60-1.30); POTASSIUM 4.3 MMOL/L (3.6-5.0)
--- NOTE | 2016-10-12 08:44 | Cardiology Progress Note ---
Subjective Date Seen by Provider: Oct 12, 2016 Time Seen by Provider: 08:41 Subjective/Events-last exam patient is feeling well, groin is healing well. No chest pain no shortness of breath, no palpitation. Educated in length about his condition and medications Review of Systems General: No Chills, No Night Sweats, No Fatigue, No Malaise, No Appetite, No Other HEENT: No Head Aches, No Visual Changes, No Eye Pain, No Ear Pain, No Dysphasia , No Sinus Congestion, No Post Nasal Drip, No Sore Throat, No Other Pulmonary: No Dyspnea, No Cough, No Pleuritic Chest Pain, No Other Cardiovascular: No: Chest Pain, Palpitations, Orthopnea, Paroxysmal Noc. Dyspnea, Edema, Lt Headedness, Other Objective-Cardiology Exam Last Set of Vital Signs Vital Signs 10/12/16 03:09 O2 Flow Rate 2.00 Capillary Refill : Less Than 3 Seconds I&O Intake and Output 10/13/16 00:00 Intake Total 1200 ml Balance 1200 ml Intake Oral 200 ml IV Total 1000 ml # Voids 3 General: Alert, Oriented X3, Cooperative HEENT: Atraumatic, PERRLA Neck: Supple, No JVD, No Thyromegaly Lungs: Clear to Auscultation, Normal Air Movement Heart: Regular Rate, Normal S1, Normal S2, No Murmurs Abdomen: Normal Bowel Sounds, Soft, No Tenderness, No Hepatosplenomegaly, No Masses Extremities: No Clubbing, No Cyanosis, No Edema, Normal Pulses, No Tenderness/ Swelling Skin: No Rashes, No Breakdown, No Significant Lesion Neuro: Normal Gait, Normal Speech, Strength at 5/5 X4 Ext, Normal Tone, Sensation Intact Psych/Mental Status: Mental Status NL, Mood NL Results Lab Laboratory Tests 10/12/16 04:12 A/P-Cardiology Admission Diagnosis Chest pain nonspecific etiology Hypertension Hyperlipidemia Diabetes mellitus Assessment/Plan Chest pain nonspecific etiology, unstable angina status post cardiac catheterization. Coronary artery disease, cardiac catheterization carried out showing severe disease at the mid LAD, underwent stent placement using science alpine 3.015 mm with excellent results, have 40-50 percent stenosis at the mid to distal LAD which will be treated medically. This morning his EKG appeared normal, he is chest pain-free, planning to discharge home. Educated on taking aspirin and Plavix. Hypertension, was mildly elevated initially, blood pressure is better, follow- up as an outpatient Hyperlipidemia, hypertriglyceridemia, poor control, educated about compliance with medication, I will add Fish oil to Crestor that was restarted recently. Monitor lipids Diabetes mellitus, followed and managed by primary care physician Clinical Quality Measures AMI/AHF: ASA po Prior to arrival: Yes (162) DVT/VTE Risk/Contraindication: Risk Factor Score Per Nursin RFS Level Per Nursing on Admit: 2=Moderate MARCELINO CADENA MD Oct 12, 2016 08:44
--- NOTE | 2016-10-12 08:44 | Clinic Account Progress/Dx ---
Clinic Account Progress/Dx DIAGNOSIS: Date Seen by Provider: Oct 12, 2016 Time Seen by Provider: 08:44 Diagnosis Unstable angina Coronary artery disease Hypertension Hyperlipidemia Diabetes mellitus MARCELINO CADENA MD Oct 12, 2016 08:44
[2016-10-12] MEDS ORDERED: OMG1KC PO (08:46)
[2016-10-12] MEDS ORDERED: CLOP75TA28 PO (08:46)
[2016-10-12] MEDS ORDERED: ROSU20TA28 PO (08:46)
--- NOTE | 2016-10-12 08:47 | Discharge Inst-Post CATH ---
Discharge Inst-CATH Post Cardiac Cath D/C Inst Follow Up/Plan Hold metformin for [address] Mireles's office in one to 2 weeks CARDIAC CATH DISCHARGE INSTRUCTIONS *Hold Metformin for 48 hours post heart cath. ACTIVITY * Go Home directly and rest. * Limit activity of the leg (or wrist if it was used) for 7 days including aerobics, swimming, jogging, bicycling, etc. * Restrict stair-climbing for 7 days if possible, if not, climb up with your non -cath leg, then bring together on the same step. * Avoid lifting, pushing, pulling or excessive movement of the affected extremity for 7 days. * Customary sexual activity may be resumed after 2 days-use caution not to use a position that strains or causes pain to the affected extremity. * No driving for 24 hours. * NO SMOKING. * Avoid straining for bowel movements for 7 days. * Gentle walking on level ground is allowed. * Returning to work will depend on the type of procedure and the results. Your doctor will discuss this with you. CALL YOUR DOCTOR FOR ANY OF THE FOLLOWING: *If bleeding from the puncture site occurs- Apply gentle pressure to site with clean cloth and call your doctor or EMS. * If a knot or lump forms under the skin, increases in size, or causes pain. * If bruising appears to be worsening or moving further down your leg instead of disappearing. * Temperature above 101 F. CARE OF YOUR GROIN INCISION; * Bruising or purple discoloration of the skin near the puncture site is common. * You may shower only, no bathtub bathing for 5 days. Be careful to avoid slipping as your leg may feel stiff. * If a closure device was used on your femoral artery, please see the attached guide regarding care of the device and your leg. * REMOVE the dressing from your groin the next day after your procedure in the shower. CARE OF YOUR WRIST INCISION; * Bruising or purple discoloration of the skin near the puncture site is common. * You may shower. * DO NOT submerge wrist. * Remove dressing in 24 hours. MARCELINO MIRELES MD Oct 12, 2016 08:47
[2016-10-12] MEDS: meTOprolol TARTRATE 25 MG (LOPRESSOR) TABLET PO SCH (08:54)
[2016-10-12] MEDS: lisINopril 20 MG (ZESTRIL) TAB PO SCH (08:54)
[2016-10-12 08:56] VITALS: BP 110/67
[2016-10-12] MEDS ORDERED: ASPIRIN E.C. 81 MG (ECOTRIN) TAB PO SCH (09:00)
[2016-10-12] MEDS ORDERED: CLOPIDOGREL 75 MG (PLAVIX) TABLET PO SCH (09:00)
[2016-10-12] MEDS ORDERED: METF500T4 PO (09:18)
--- NOTE | 2016-10-12 09:21 | Discharge Inst-Complex ---
PDI Med Rec & Follow Up Appt. New Medications: Metformin HCl (Metformin HCl) 500 Mg Tablet 1000 MG PO BID for 30 Days, #120 TAB DO NOT START THIS MEDICATION UNTIL THE EVENING DOSE ON 10/13/16 [place] 3 Polyunsat Fatty Acids (Fish Oil 1,000 mg Capsule) 1,000 Mg Cap 1000 MG PO BID, #100 CAP Clopidogrel Bisulfate (Clopidogrel) 75 Mg Tablet 75 MG PO DAILY, #30 TAB 6 Refills Rosuvastatin Calcium (Rosuvastatin Calcium) 20 Mg Tablet 20 MG PO HS, #30 TAB 4 Refills Continued Medications: Aspirin (Aspirin EC) 81 Mg Tablet.dr 81 MG PO DAILY, TAB Glimepiride (Glimepiride) 2 Mg Tablet 2 MG PO DAILY, TAB Lisinopril (Lisinopril) 10 Mg Tablet 10 MG PO DAILY, TAB Mv,Minerals/FA/Lycopene/Ginkgo (One Daily For Men 50+ Adv Tab) 1 Each Tablet 1 TAB PO DAILY, TAB Omeprazole Magnesium (Prilosec Otc) 20 Mg Tablet.dr 20 MG PO DAILY PRN for HEARTBURN, TAB Discontinued Medications: Metformin Hcl (Metformin 500 Mg) 500 Mg Tablet 1000 MG PO BID WITH MEALS, TAB TAKES 2 (500MG) TABLETS Simvastatin (Simvastatin) 20 Mg Tablet 20 MG PO HS, TAB LAST FILLED #30 06-12-16 Prescription: Transmitted to Pharmacy Patient Instructions: DO NOT START THE METFORMIN UNTIL THE EVENING DOSE ON 10/13/16 - YOUR HEART CATHETERIZATION USED DYE THAT CAN BE IRRITATING TO THE KIDNEYS AND STARTING THE METFORMIN BEFORE THE INSTRUCTED START DATE ON 10/13/16 AT NIGHT MAY INCREASE RISK OF FURTHER KIDNEY IRRITATION CAUSING PERMANENT DAMAGE TO THE KIDNEYS. INCREASE YOUR WATER INTAKE BY AN EXTRA 24 OUNCES DAILY FOR 3 MORE DAYS, THEN RESUME NORMAL WATER INTAKE. AVOID FATTY FOODS, EAT A HEALTHY DIABETIC DIET, AVOID EXCESSIVE SUGAR AND CARBOHYDRATE INTAKE. Activity, Diet and PDI Resume Normal Activity: Yes Discharge Diet: ADA Diet, Avoid Fatty Foods Diet for 24 Hours: No Alcohol, No [place] Foods Diet After 24 Hours: Clear Liquid if Nauseous Drink 6-8 Glasses of Fluid/Day: Yes Driving Instructions: No Driving for 24 Hours Symptoms to Reoprt to : Appetite Changes, Bleeding Excessive, Fever Over 101 Degrees F, Pain/Pressure in Chest, Cough Up/Vomit Blood, Heart Beat Irreg/ Pounding, Pain/Pressure in Jaw, Questions/Concerns, Shortness of Breath For Problems or Questions: Contact Your Physician, Go to Emergency Room Infection Signs and Symptoms: Increased Redness, Foul Odor of Wound, Skin Itchy or Has a Rash, Temperature Above 101 F DEMETRA ALMENDAREZ MD Oct 12, 2016 09:21
--- NOTE | 2016-10-12 09:24 | Discharge Summary ---
Diagnosis/Chief Complaint Date of Admission Oct 11, 2016 at 05:55 Date of Discharge Discharge Date: Oct 12, 2016 Admission Diagnosis Admission Diagnosis chest pain. Headache. Dizziness. Hypertension. Diabetes. Hyperlipidemia Discharge Diagnosis CHEST PAIN CORONARY ARTERY DISEASE LEFT ANTERIOR DESCENDING CORONARY ARTERY STENOSIS HYPERTENSION HYPERLIPIDEMIA DIABETES MELLITUS Reason Hospital Visit 66 years old gentleman with history of hypertension, hyperlipidemia and diabetes mellitus, was in his usual state of health until early this morning, around midnight he woke up with chest pressure, all over his chest and pin pointing some discomfort at the left side of his chest, had some neck pain, felt slightly dizzy and lightheaded, no shortness of breath. Laid down and try to wait it out, took 2 AB aspirin without improvement. Came into the emergency room and given sublingual nitroglycerin and reported improvement of his pain. Patient reporting having stress test done a few years ago and it was normal. He is currently chest pain-free, EKG and cardiac enzymes did not show any acute abnormality Discharge Summary Consultations DR. CADENA Discharge Physical Examination Allergies: Coded Allergies: No Known Drug Allergies (Unverified , 05/16/13) Vitals & I&Os Vital Signs Date Time Temp Pulse Resp B/P (MAP) Pulse Ox O2 Delivery O2 Flow Rate FiO2 10/12/16 10:15 10/12/16 09:23 100 Room Air 10/12/16 08:56 97.8 59 16 10/12/16 03:09 2.00 General Appearance: Alert, Oriented X3, Cooperative HEENT: Atraumatic, PERRLA Respiratory: Clear to Auscultation, Normal Air Movement Cardiovascular: Regular Rate, Normal S1, Normal S2, No Murmurs Abdominal: Normal Bowel Sounds, Soft, No Tenderness Extremities: No Clubbing, No Cyanosis, No Edema Skin: No Rashes, No Breakdown, No Significant Lesion Neuro: Normal Gait, Normal Speech, Strength at 5/5 X4 Ext Psych/Mental Status: Mental Status NL, Mood NL Hospital Course CHEST PAIN CORONARY ARTERY DISEASE LEFT ANTERIOR DESCENDING CORONARY ARTERY STENOSIS HYPERTENSION HYPERLIPIDEMIA DIABETES MELLITUS CHEST PAIN - CORONARY ARTERY DISEASE - CARDIAC CATH SHOWED SEVERE DISEASE AT THE MID LAD - STENT WAS PLACED - PER TAMMI'S NOTE: Stent placement using science alpine 3.015 mm with excellent results, have 40-50 percent stenosis at the mid to distal LAD which will be treated medically. DISCUSSED WITH PATIENT - PLAVIX, ASPIRIN, CRESTOR, FISH OIL. HYPERTENSION - CONTINUE WITH ANTIHYPERTENSIVE. HYPERLIPIDEMIA - HYPERTRIGLYCERIDEMIA - LOW FAT DIET DISCUSSED, MARYANN PETERS, DEFER TO PCP ON DISCHARGE. DIABETES MELLITUS - PT EDUCATED ON HOLDING METFORMIN X 24 MORE HOURS PRIOR TO STARTING MEDICATIONS. MONITOR SYMPTOMS. DIETARY CONTROL DISCUSSED WITH PATIENT AND HIS . Pending Labs Discharge Condition at discharge IMPROVED Instructions to patient/family Please see electonic discharge instructions given to patient. Discharge Medications Reviewed and agree with Discharge Medication list on patient's Discharge Instruction sheet Clinical Quality Measures AMI/AHF: ASA po Prior to arrival: Yes (162) DVT/VTE Risk/Contraindication: Risk Factor Score Per Nursin RFS Level Per Nursing on Admit: 2=Moderate DEMETRA ALMENDAREZ MD Oct 12, 2016 09:24
--- NOTE | 2016-10-14 09:31 | STRESS TEST ---
DATE OF SERVICE: 10/11/2016 PROCEDURE: Exercise stress echocardiogram REFERRING PHYSICIAN: Baseline heart rate is 55. Baseline blood pressure 135/80. Baseline EKG sinus rhythm with right bundle branch block, Q-waves in the anterior leads. SUMMARY: The patient started exercising with a baseline heart rate, blood pressure and EKG mentioned above. He was able to exercise for a total of 7 minutes on standard [place] protocol, achieving maximum heart rate of 156, which is over 100% of maximum expected heart rate. With peak exercise level, EKG was showing nondiagnostic changes, patient had multiple PVCs and ventricular couplets, during recovery, heart rate and blood pressure returned to baseline, blood pressure was 201/81. Echocardiographic images were acquired and reviewed in the parasternal long axis, parasternal short axis, apical four chamber and apical two chamber views. Review of the images showed normal left ventricular size and function with stress induced ischemia involving the lateral wall and inferolateral wall. CONCLUSION: 1. Good exercise tolerance a total of 7 minutes on standard [place] protocol, achieving over 100% of maximum expected heart rate. 2. Baseline right bundle branch block with frequent PVCs induced by exercise, occasional ventricular couplets. 3. Hypertensive response to exercise. 4. Abnormal echocardiographic images with peak stress level suggestive of ischemia, normal left ventricular function at rest. Job ID: [id number] DocumentID: [id number] Dictated Date: 10/11/2016 12:29:21 [employer] Account Manager Date: 10/11/2016 12:54:51 Dictated By: MARCELINO CADENA MD
== END 2016-10-12 10:15 | disposition home or self-care (01) ==
LOC: EDUNIT# 04:20 → ER 04:22 → UNDOADMOB 05:55 → ICU 05:55 → CSDo 08:12 → ICU 08:12 → CATH 08:12 → CSDo 10-12 10:15 → UNDODISOB 10-12 10:15 → CATH 10-12 10:15 → ICU 10-12 10:15
PROVIDERS: ATTEND Family Medicine
DX: I25.110 Atherosclerotic heart disease of native coronary artery with unstable angina pectoris (principal); R94.39 Abnormal result of other cardiovascular function study; I10 Essential (primary) hypertension; E78.5 Hyperlipidemia, unspecified; E11.9 Type 2 diabetes mellitus without complications; Z82.49 Family history of ischemic heart disease and other diseases of the circulatory system; Z79.84 Long term (current) use of oral hypoglycemic drugs; Z79.899 Other long term (current) drug therapy
CPT/HCPCS: 36415; 71010; 74177; 80048; 80053; 80061; 83690; 83735; 83874; 84484; 85025; 85027; 85347; 85379; 85610; 85730; 93005; 93041; 93306; 93351; 93458; 96361; 96374; 96375

== ENCOUNTER 2016-10-15 13:13 | Inpatient (IN) | payer MEDICARE, OTHER ==
[2016-10-15] VITALS (9 sets, daily range): BP systolic 115–149; BP diastolic 56–99
[~2016-10-15] VITALS: Ht 185.4 cm; Wt 87.5 kg
[~2016-10-15 13:13] MED LIST changes: +ASPI-983 PO; +CLOP75TA28 PO; +METF500T4 PO; +MV,M1TAB2 PO; +OMEP20TA33 PO; +OMG1KC PO; +ROSU20TA28 PO; +SIMV20TA3 PO; +morphine INJ 10 MG/ML 1ML (SYR OR VIAL) ONE
[2016-10-15] MEDS ORDERED: MIDAZOLAM 5 MG/5 ML (VERSED) VIAL ONE (13:14)
[2016-10-15] MEDS ORDERED: fentaNYL INJECTION 100 MCG/2 ML AMP ONE (13:14)
[2016-10-15] MEDS ORDERED: NS IV 1000 ML 0 ML ONE (13:15)
[2016-10-15] MEDS ORDERED: diphenhydrAMINE 50 MG/ML INJ (BENADRYL) ONE (13:15)
[2016-10-15] MEDS ORDERED: HEParin (CATH LAB) 2,000 ML IV ONE (13:15)
[2016-10-15] MEDS ORDERED: NITROGLYCERIN DRIP 25 MG/D5W 250 ML IV ONE (13:18)
[2016-10-15] MEDS ORDERED: HEParin 1000 UNIT/ML (10ML VIAL) FOR BOLUS ONE (13:18)
[2016-10-15] MEDS ORDERED: RX-NITROGLYCERIN 0.4 MG TAB BTL 25'S SL ONE (13:19)
[2016-10-15] MEDS ORDERED: EPTIFIBATIDE BOLUS 0 ML IV ONE (13:20)
[2016-10-15] MEDS ORDERED: NS (IVPB) 50 ML ONE ×2 (13:28→13:31)
[2016-10-15] MEDS ORDERED: BIVALIRUDIN IV ONE ×2 (13:28→13:32)
[2016-10-15] MEDS ORDERED: ASPIRIN 81 MG CHEW (CHILDREN'S ASA) PO ONE (13:30)
[2016-10-15] MEDS ORDERED: morphine INJ 10 MG/ML 1ML (SYR OR VIAL) IVP ONE (13:30)
[2016-10-15] MEDS ORDERED: ATROPINE INJECTION 1 MG/10 ML SYR (ABBOTT) ONE (13:31)
--- NOTE | 2016-10-15 13:34 | ED Chest Pain ---
General Stated Complaint: SEVERE PAIN Source: patient, old records Exam Limitations: no limitations History of Present Illness Time seen by provider: 13:16 Initial Comments This 66-year-old gentleman presents to emergency room with diaphoresis, severe chest pain, and shortness of breath. He is in severe distress. He has known heart disease and had a cardiac catheterization with stent placement last Friday. He did not start his Plavix until last night. He has not taken any nitroglycerin. He has had only 81 mg of aspirin in the last 24 hours. EKG performed at 13:14 demonstrates STEMI. Severe symptoms started just prior to arrival. Allergies and Home Medications Allergies Coded Allergies: No Known Drug Allergies (Unverified , 05/16/13) Home Medications Aspirin 81 Mg Tablet., 81 MG PO DAILY, (Reported) Clopidogrel Bisulfate 75 Mg Tablet, 75 MG PO DAILY, #30 Ref 6 Prescribed by: MARCELINO MIRELES on 10/12/16 0846 Glimepiride 2 Mg Tablet, 2 MG PO DAILY, (Reported) Lisinopril 10 Mg Tablet, 10 MG PO DAILY, (Reported) Metformin HCl 500 Mg Tablet, 1,000 MG PO BID for 30 Days, #120 DO NOT START THIS MEDICATION UNTIL THE EVENING DOSE ON 10/13/16 Prescribed by: DEMETRA ALMENDAREZ on 10/12/16 0918 Mv,Minerals/FA/Lycopene/Ginkgo 1 Each Tablet, 1 TAB PO DAILY, (Reported) [employer] 3 Polyunsat Fatty Acids 1,000 Mg Cap, 1,000 MG PO BID, #100 Prescribed by: MARCELINO MIRELES on 10/12/16 0846 Omeprazole Magnesium 20 Mg Tablet., 20 MG PO DAILY PRN for HEARTBURN, ( Reported) Rosuvastatin Calcium 20 Mg Tablet, 20 MG PO HS, #30 Ref 4 Prescribed by: MARCELINO MIRELES on 10/12/16 0846 Review of Systems Constitutional: diaphoresis EENTM: No Symptoms Reported Respiratory: See HPI Cardiovascular: See HPI Gastrointestinal: No Symptoms Reported Genitourinary: No Symptoms Reported Musculoskeletal: no symptoms reported Skin: see HPI Psychiatric/Neurological: No Symptoms Reported Endocrine: No Symptoms Reported Past Lqbnvyk-Vhhnve-Dvoebl Hx Patient Social History 2nd Hand Smoke Exposure: No Recent Foreign Travel: No Contact w/Someone Who Travel: No Recent Hopitalizations: No Immunizations Up To Date Tetanus Booster (TDap): Unknown PED Vaccines UTD: Yes Date of Pneumonia Vaccine: Mar 15, 2013 Date of Influenza Vaccine: Feb 17, 2015 Seasonal Allergies Seasonal Allergies: No Surgeries History of Surgeries: Yes (CATARACTS, EYELID TUCK, ) Surgeries: Coronary Stent, Eye Surgery, Testicular Respiratory History of Respiratory Disorde: No Currently Using CPAP: No Cardiovascular History of Cardiac Disorders: Yes Cardiac Disorders: High Cholesterol, Hypertension Neurological History of Neurological Disord: No Genitourinary History of Genitourinary Disor: No Gastrointestinal History of Gastrointestinal Di: No Musculoskeletal History of Musculoskeletal Dis: Yes Musculoskeletal Disorders: Gout Endocrine History of Endocrine Disorders: Yes Endocrine Disorders: Diabetes, Non-Insulin dep HEENT History of HEENT Disorders: Yes HEENT Disorders: Cataract Cancer History of Cancer: No Psychosocial History of Psychiatric Problem: No Integumentary History of Skin or Integumenta: No Blood Transfusions History of Blood Disorders: No Family Medical History Family Medial History: Cataract 19 FATHER Chest pain 19 MOTHER Dementia 19 MOTHER Family history: Alzheimer's disease 19 MOTHER Family history: Arthritis 19 MOTHER Family history: Diabetes mellitus 19 MOTHER Family history: Hypertension 19 FATHER 19 MOTHER G8 SISTER Headache Hypercholesterolemia 19 FATHER 19 MOTHER G8 SISTER Kidney disease 19 FATHER Prostate cancer 19 FATHER Stroke 19 FATHER Visual impairment 19 MOTHER G8 BROTHER G8 BROTHER G8 SISTER No Family History of: Abdominal aortic aneurysm [place]'s disease Alcoholism Aphasia Cancer Cancer of colon Congenital heart disease Congestive heart failure Cystic fibrosis Dysphagia Family history: Allergy Family history: Asthma Family history: Breast disease Family history: Cardiovascular disease Family history: Coronary thrombosis Family history: Gastrointestinal disease Family history: Glaucoma Family history: Osteoporosis Family history: Thyroid disorder Hearing loss Heart disease Hereditary disease History of - anemia History of - disorder History of - respiratory disease History of drug abuse Human immunodeficiency virus (HIV) seropositivity Infertile Malignant neoplasm of lung Myocardial infarction Parkinson's disease Psychotic disorder Seizure disorder Tuberculosis Physical Exam Vital Signs Capillary Refill : General Appearance: WD/WN, Severe Distress HEENT: PERRL/EOMI, Normal ENT Inspection Respiratory: Lungs Clear, Normal Breath Sounds, No Accessory Muscle Use, No Respiratory Distress Cardiovascular: Regular Rate, Rhythm, No Edema, No Murmur Extremity: Normal Inspection, No Pedal Edema Neurologic/Psychiatric: Alert, Oriented x3, No Motor/Sensory Deficits, Normal Mood/Affect, 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 Norm as Tested Skin: Diaphoresis, Pallor Progress/Results/Core Measures Results/Orders My Orders Orders - NARENDRA MONAHAN MD Cbc With Automated Diff (10/15/16 13:18) Magnesium (10/15/16 13:18) Chest 1 View, Ap/Pa Only (10/15/16 13:18) Ekg Tracing (10/15/16 13:18) Cardiac Profile 1 (10/15/16 13:18) Comprehensive Metabolic Panel (10/15/16 13:18) Myoglobin Serum (10/15/16 13:18) Protime With Inr (10/15/16 13:18) Partial Thromboplastin Time (10/15/16 13:18) O2 (10/15/16 13:18) Monitor-Rhythm Ecg Trace Only (10/15/16 13:18) Lipid Panel (10/16/16 06:00) Aspirin Chewable Tablet (Baby Aspirin Ch (10/15/16 13:30) Saline Lock/Iv-Start (10/15/16 13:18) Morphine Injection (Morphine Injection (10/15/16 13:12) Morphine Injection (Morphine Injection (10/15/16 13:30) Midazolam Injection (Versed Injection) (10/15/16 13:14) Fentanyl Injection (Sublimaze Injection (10/15/16 13:14) Diphenhydramine Injection (Benadryl Inje (10/15/16 13:15) Ns Iv 1000 Ml (Sodium Chloride 0.9%) (10/15/16 13:15) Heparin (Composition Floor Layer) (Heparin (Composition Floor Layer)) (10/15/16 13:15) Heparin (Bolus Per Protocol) (Heparin (B (10/15/16 13:18) Nitroglycerin Drip 25 Mg/D5w (Nitroglyce (10/15/16 13:18) Rx-Nitroglycerin Sl Tabs (Rx-Nitrostat S (10/15/16 13:19) Eptifibatide Bolus (Integrilin Bolus) (10/15/16 13:20) Progress Note : Progress Note EKG was immediately obtained upon presentation and STEMI was identified. Composition Floor Layer was immediately activated and Dr. Mireles notified. Within minutes Dr. Mireles in Composition Floor Layer were present in the ER. Patient was transferred to Composition Floor Layer by 13: 30. Patient was given aspirin 325 mg chewed, morphine 10 mg IV, high flow nasal cannula oxygen, and IV fluids. Nitroglycerin was administered as patient had severely low blood pressure with prior doses of nitroglycerin. ECG Initial ECG Impression Date: Oct 15, 2016 Initial ECG Impression Time: 13:14 Initial ECG Rate: 85 Comment Sinus rhythm with acute ST elevation [place] most pronounced in V3 and V4. Right bundle branch block. Departure Impression Impression: Primary Impression: ST elevation [place] (STEMI) Qualified Codes: I21.3 - ST elevation (STEMI) myocardial infarction of unspecified site Disposition: ADMITTED INPATIENT Condition: Critical Departure-Patient Inst. Referrals: AUGIE DOUGLASS DO (PCP/Family) Primary Care Physician NARENDRA MONAHAN MD Oct 15, 2016 13:34
[2016-10-15 13:38] LABS: BASOPHILS # (AUTO) 0.1 10^3/uL (0.0-0.1); BASOPHILS % (AUTO) 1 % (0-10); EOSINOPHILS # (AUTO) 0.2 10^3/uL (0.0-0.3); EOSINOPHILS % (AUTO) 1 % (0-10); LYMPHOCYTES # (AUTO) 3.5 X 10^3 (1.0-4.0); LYMPHOCYTES % (AUTO) 33 % (12-44); MEAN CORPUSCULAR HEMOGLOBIN 24 PG (25-34); MEAN CORPUSCULAR HGB CONC 33 G/DL (32-36); MEAN CORPUSCULAR VOLUME 74 FL (80-99); MEAN PLATELET VOLUME 10.3 FL (7.4-10.4); MONOCYTES # (AUTO) 0.9 X 10^3 (0.0-1.0); MONOCYTES % (AUTO) 8 % (0-12); NEUTROPHILS # (AUTO) 5.9 X 10^3 (1.8-7.8); NEUTROPHILS % (AUTO) 56 % (42-75); PLATELET COUNT 429 10^3/uL (130-400); RED BLOOD COUNT 5.09 10^6/uL (4.35-5.85); RED CELL DISTRIBUTION WIDTH 16.5 % (10.0-14.5); WHITE BLOOD COUNT 10.5 10^3/uL (4.3-11.0)
[2016-10-15] MEDS ORDERED: DOPamine DRIP 0 ML IV ONE (13:48)
[2016-10-15 13:49] LABS: INR 0.9 (0.8-1.4); PROTHROMBIN TIME PATIENT 12.6 SEC (12.2-14.7)
[2016-10-15 13:57] LABS: ALANINE AMINOTRANSFERASE 30 U/L (0-55); ALBUMIN 4.3 GM/DL (3.2-4.5); ANION GAP 13 MMOL/L (5-14); ASPARTATE AMINO TRANSFERASE 23 U/L (5-34); BILIRUBIN,TOTAL 0.6 MG/DL (0.1-1.0); BLOOD UREA NITROGEN 22 MG/DL (7-18); BUN/CREATININE RATIO 12; CALCIUM 10.1 MG/DL (8.5-10.1); CARBON DIOXIDE 19 MMOL/L (21-32); CHLORIDE 102 MMOL/L (98-107); CREATININE SERUM 1.82 MG/DL (0.60-1.30); GFR ESTIMATED 37; GLUCOSE 284 MG/DL (70-105); MAGNESIUM 1.8 MG/DL (1.8-2.4); POTASSIUM 3.8 MMOL/L (3.6-5.0); SODIUM 134 MMOL/L (135-145); TOTAL PROTEIN 7.5 GM/DL (6.4-8.2)
[2016-10-15] MEDS ORDERED: TICAGRELOR 90 MG TABLET (BRILINTA) PO ONE (14:02)
[2016-10-15 14:07] LABS: MYOGLOBIN SERUM 106.7 NG/ML (10.0-92.0)
[2016-10-15] MEDS ORDERED: PATIENT MAY USE OWN MEDS, ALL PO SCH (14:15)
[2016-10-15] MEDS ORDERED: METF500T4 PO (14:21)
[2016-10-15] MEDS ORDERED: OMG1KC PO (14:21)
[2016-10-15] MEDS ORDERED: CLOP75TA69 PO (14:21)
[2016-10-15] MEDS ORDERED: ATOR10TA PO (14:21)
[2016-10-15] MEDS: NS IV 1000 ML 1,000 ML IV SCH ×2 (15:20→20:31)
--- NOTE | 2016-10-15 15:30 | Cardiology History & Physical ---
HPI-Cardiology Cardiology Consultation Date of Consultation 10/15/16 Date of Admission Time Seen by Provider: 13:25 Indication: chest pain HPI 66 years old gentleman with coronary artery disease, had a stent placed in the LAD last week discharge home and educated in length about the importance on taking his medication, patient skipped 2 days of Plavix, started it back yesterday, he was doing well until his afternoon when he started having sudden onset chest pain and shortness of breath diaphoresis, lethargy. Came into the emergency room and noted to have ST elevation myocardial infarction, I was called to the emergency room for evaluation patient was thrashing, anxious and having severe pain and shortness of breath and diaphoretic. We decided to proceed with emergency cardiac catheterization, procedure was explained to the patient and his and we proceeded with the procedure PM-Cardiology Immunizations Up To Date Tetanus Booster (DTap): Unknown Date of Pneumonia Vaccine: Mar 15, 2013 Date of Influenza Vaccine: Feb 17, 2015 Seasonal Allergies Seasonal Allergies: No Surgeries Yes (CATARACTS, EYELID TUCK, ) Eye Surgery Respiratory No Cardiovascular Yes High Cholesterol, Hypertension Neurological No Genitourinary No Gastrointestinal No Musculoskeletal Yes Gout Endocrine Yes Diabetes, Non-Insulin dep HEENT Yes Cataract Cancer No Psychosocial No Integumentary No Blood Transfusions No Other PMHx past history as discussed below Social History Patient Social History Marrital Status: Employed/Student: employed Alcohol Use: Rarely Uses Recent Foreign Travel: No Contact w/other who traveled: No Family Hx Family History: 19 FATHER Cataract Family history: Hypertension Hypercholesterolemia Kidney disease Prostate cancer Stroke 19 MOTHER Chest pain Dementia Family history: Alzheimer's disease Family history: Arthritis Family history: Diabetes mellitus Family history: Hypertension Hypercholesterolemia Visual impairment G8 BROTHER Visual impairment G8 BROTHER Visual impairment G8 SISTER Family history: Hypertension Hypercholesterolemia Visual impairment Relation not specified for: Headache ROS-Cardiology Review of Systems General: No Chills, No Night Sweats, Fatigue, Malaise, No Appetite HEENT: No Head Aches, No Visual Changes, No Eye Pain, No Ear Pain, No Dysphasia , No Sinus Congestion, No Post Nasal Drip, No Sore Throat Pulmonary: Dyspnea, No Cough, No Pleuritic Chest Pain Cardiovascular: Chest Pain, Lt Headedness, Other (diaphoresis), No: Palpitations, Orthopnea, Paroxysmal Noc. Dyspnea, Edema Gastrointestinal: No: Nausea, Vomiting, Abdominal Pain, Diarrhea, Constipation , Melena, Hematochezia Genitourinary: No Dysuria, No Frequency, No Incontinence, No Hematuria, No Retention Musculoskeletal: No: neck pain, shoulder pain, arm pain, back pain, hand pain, leg pain, foot pain Neurological: No: Weakness, Numbness, Incoordination, Change in speech, Confusion, Seizures Home Medications & Allergies Allergies: Coded Allergies: No Known Drug Allergies (Unverified , 05/16/13) Home Medication List Reviewed: Yes Exam-Cardiology Exam General Appearance: Alert, Oriented X3, Cooperative, No Acute Distress HEENT: Atraumatic, PERRLA Respiratory: Clear to Auscultation, Normal Air Movement Cardiovascular: Regular Rate, Normal S1, Normal S2, No Murmurs Abdominal: Normal Bowel Sounds, Soft, No Tenderness, No Hepatosplenomegaly, No Masses Extremities: No Clubbing, No Cyanosis, No Edema, Normal Pulses, No Tenderness/ Swelling Skin: No Rashes, No Breakdown, No Significant Lesion Neuro: Normal Gait, Normal Speech, Strength at 5/5 X4 Ext, Normal Tone, Sensation Intact Psych/Mental Status: Mental Status NL, Mood NL Results Labs Labs Laboratory Tests 10/15/16 13:25: White Blood Count 10.5, Red Blood Count 5.09, Hemoglobin 12.3L, Hematocrit 38L, Mean Corpuscular Volume 74L, Mean Corpuscular Hemoglobin 24L, Mean Corpuscular Hemoglobin Concent 33, Red Cell Distribution Width 16.5H, Platelet Count 429H, Mean Platelet Volume 10.3, Neutrophils (%) (Auto) 56, Lymphocytes (%) (Auto) 33 , Monocytes (%) (Auto) 8, Eosinophils (%) (Auto) 1, Basophils (%) (Auto) 1, Neutrophils # (Auto) 5.9, Lymphocytes # (Auto) 3.5, Monocytes # (Auto) 0.9, Eosinophils # (Auto) 0.2, Basophils # (Auto) 0.1, Prothrombin Time 12.6, INR Comment 0.9, Activated Partial Thromboplast Time 24, Sodium Level 134L, Potassium Level 3.8, Chloride Level 102, Carbon Dioxide Level 19L, Anion Gap 13 , Blood Urea Nitrogen 22H, Creatinine 1.82H, Estimat Glomerular Filtration Rate 37, BUN/Creatinine Ratio 12, Glucose Level 284H, Calcium Level 10.1, Magnesium Level 1.8, Total Bilirubin 0.6, Aspartate Amino Transf (AST/SGOT) 23, Alanine Aminotransferase (ALT/SGPT) 30, Alkaline Phosphatase 80, Myoglobin 106.7H, Troponin I < 0.30, Total Protein 7.5, Albumin 4.3 A/P-Cardiology Admission Diagnosis Acute ST elevation myocardial infarction Coronary artery disease Hypertension Hyperlipidemia Diabetes mellitus Assessment/Plan Acute ST elevation myocardial infarction, recent stenting to the LAD, patient skip Plavix for 2 days, having ST elevation in the anterior wall, decided to proceed with emergency cardiac catheterization possible PTCA. Coronary artery disease, cardiac catheterization was done on October 15, 2016 showing severe disease at the mid LAD, underwent stent placement using Xience Alpine 3.015 mm with excellent results, admitted with acute ST elevation myocardial infarction, underwent emergency cardiac catheterization which showed total occlusion of the stent with thrombus, underwent thrombectomy with door to balloon time of 30 minutes (1313 door time-1343 thrombectomy time), patient have thrombus within the stent, I proceeded with deployment of 2 stents overlapping Xience Alpine 3.018 mm and 2.75 x 15 extended proximally to 3.25 and at the overlap area to 3.1 and distally 3.0. Excellent results, patient felt better immediately, I will use aspirin and Brilinta in addition to IV Angiomax. Evaluate CYP 2 C1 9 level Hypertension, Hypotensive, continue to monitor blood pressure Hyperlipidemia, hypertriglyceridemia, I will switch Crestor to Lipitor 80 mg daily and add Fish oil and monitor Diabetes mellitus, followed and managed by primary care physician MARCELINO CADENA MD Oct 15, 2016 15:30
--- NOTE | 2016-10-15 15:54 | Cardiac Procedure Note-CS/ASA ---
Pre-Procedure Note Pre-Op Procedure Note H&P Reviewed The H&P was reviewed, patient examined in the emergency room, patient was having ST elevation myocardial infarction and unstable, I proceeded with the procedure and then did the H&P Date H&P Reviewed: Oct 15, 2016 Time H&P Reviewed: 15:00 Conscious Sedation Pre-Proced Time Reviewed: 13:20 ASA Class: 3 Airway Mallampati Classification: (ak chin appropriate class) I. II. III, IV Lungs Heart ASA score ASA 1: a normal healthy patient ASA 2: a patient with a mild systemic disease (mid diabetes, controlled hypertension, obesity x ASA 3: a patient with a severe systemic disease that limits activity (angina , COPD, prior Myocardial infarction) ASA 4: a patient with an incapacitating disease that is a constant threat to life (CHF, renal failure) ASA 5: a moribund patient not expected to survive 24 hrs. (ruptured aneurysm) ASA 6: a declared brain patient whose organs are being harvested. For emergent operations, add the letter E after the classification Grade 3 Sedation Plan: Analgesia, Amnesia, Plan communicated to team members, Discussed options with patient/fam, Discussed risks with patient/fam Note The patient is an appropriate candidate to undergo the planned procedure, sedation, and anesthesia. The patient immediately re-assessed prior to indication. MARCELINO CADENA MD Oct 15, 2016 15:54
--- NOTE | 2016-10-15 16:01 | Cardiac Cath Report ---
Cardiac Cath Report Physician (s)/Digital Media Strategist (s) Physician MARCELINO CADENA MD Pre-Procedure Diagnosis Pre-Procedure Diagnosis: ST elevation myocardial infarctions anterior wall Post-Procedure Note Procedure Start Date: Oct 15, 2016 Procedure Start Time: 13:30 Name of Procedure: left heart catheterization, stent to the LAD, thrombectomy Findings/Procedure Note Patient was having acute ST elevation myocardial infarction, he was brought to the cardiac catheterization and emergency condition. Right groin was prepped SL fashion local anesthesia applied the right groin 6 Lao sheath was placed in the right femoral artery I proceeded with a Voda 3.0 guide to the left carotid system, angiogram showed total occlusion of the LAD with mild disease in the circumflex artery, known to have small right coronary artery. I gave the patient Angiomax bolus and a drip, started intervention with BMW wire advanced with difficulties through the total occlusion of the LAD then I proceeded with thrombectomy with extraction catheter , angiogram showed establishment of the flow with heavy thrombus burden within the stent. I decided to proceed with stenting again I used Xience Alpine 3.0 18 mm expanded to 3.25 mm with good result distal to the stent there was still small area of haziness, I used a second stent 2.75 X 12 mm deployed up to 3 mm distally and used noncompliant balloon 3.0 expanded the overlap area to 3.1 mm with good results. At the end of procedure angiogram showed excellent flow with no residual stenosis. I did not do left ventriculogram to limit the contrast exposure, no need for right coronary evaluation due to the fact that patient has anterior wall STEMI Conclusion [address] elevation myocardial infarction involving total occlusion of the fresh stent in the LAD due to noncompliance with medication, successful thrombectomy then deployment of 2 Xience Alpine overlapping stent 3.018 mm and 2.7512 mm expanded to 3.0 distally and 3.2 proximally, excellent results with establishment of the flow. 2. Patient was started on Angiomax and Brilinta instead of Plavix, continue on aspirin. Anesthesia Type: Conscious Sedation Estimated blood loss (mL): 25 ml Contrast Amount: 130 ml Total Radiation Dose: 858 mGy Post-Procedure Diagnosis Post-operative diagnosis: ST elevation myocardial infarction the anterior wall Coronary artery disease Total occlusion of the LAD Hyperlipidemia Diabetes mellitus MARCELINO CADENA MD Oct 15, 2016 4:01 pm
[2016-10-15] MEDS: OMEGA 3 (FISH OIL) 1000 MG CAP PO SCH (17:26)
[2016-10-15] MEDS: ATORVASTATIN 80 MG (LIPITOR) TABLET PO SCH (20:31)
[2016-10-15] MEDS: TICAGRELOR 90 MG TABLET (BRILINTA) PO SCH (20:32)
[2016-10-15] MEDS ORDERED: ALPRAZolam 0.5 MG (XANAX) TAB PO ONE (23:45)
[2016-10-16] VITALS (11 sets, daily range): BP systolic 104–142; BP diastolic 60–86
[2016-10-16] MEDS ORDERED: CALCIUM CARBONATE 500 MG (TUMS) TAB.CHEW ONE (01:08)
[2016-10-16] MEDS ORDERED: CALCIUM CARBONATE 500 MG (TUMS) TAB.CHEW PO PRN ×2 (01:30)
[2016-10-16 04:32] LABS: RED BLOOD COUNT 4.35 10^6/uL (4.35-5.85); RED CELL DISTRIBUTION WIDTH 16.3 % (10.0-14.5); WHITE BLOOD COUNT 9.5 10^3/uL (4.3-11.0)
[2016-10-16 04:52] LABS: ANION GAP 11 MMOL/L (5-14); BLOOD UREA NITROGEN 18 MG/DL (7-18); BUN/CREATININE RATIO 15; CALCIUM 8.8 MG/DL (8.5-10.1); CARBON DIOXIDE 20 MMOL/L (21-32); CHLORIDE 101 MMOL/L (98-107); CREATININE SERUM 1.19 MG/DL (0.60-1.30); GFR ESTIMATED > 60; GLUCOSE 212 MG/DL (70-105); MAGNESIUM 1.6 MG/DL (1.8-2.4); POTASSIUM 3.8 MMOL/L (3.6-5.0); SODIUM 132 MMOL/L (135-145)
[2016-10-16 04:54] LABS: CHOLESTEROL 161 MG/DL (< 200); DIRECT LDL 110 MG/DL (1-129); TRIGLYCERIDES 160 MG/DL (<150); VLDL CHOLESTEROL 32 MG/DL (5-40)
[2016-10-16 05:11] LABS: TROPONIN I 10.57 NG/ML (<0.30)
[2016-10-16] MEDS: NS IV 1000 ML 1,000 ML IV SCH (07:05)
[2016-10-16] MEDS ORDERED: TICA90TA PO (08:13)
--- NOTE | 2016-10-16 08:46 | Diagnostic Imaging Report ---
EXAMINATION: Portable erect AP chest at 4:20 AM. INDICATION: Myocardial infarction. FINDINGS: The heart size is within normal limits and stable when compared to 10/11/2016. The lungs remain clear. There is no sign of failure, pneumonia, or pleural effusion. The mediastinum is not widened. The osseous structures are intact. IMPRESSION: Stable chest. There has been no adverse change since the prior exam. Dictated by: Dictated on workstation # [id number]
[2016-10-16] MEDS: TICAGRELOR 90 MG TABLET (BRILINTA) PO SCH ×2 (08:54→21:11)
[2016-10-16] MEDS: MAGNESIUM 1 GM/100 ML IVPB 100 ML IV SCH ×2 (08:54→10:03)
[2016-10-16] MEDS: ASPIRIN E.C. 81 MG (ECOTRIN) TAB PO SCH (08:54)
[2016-10-16] MEDS: OMEGA 3 (FISH OIL) 1000 MG CAP PO SCH ×2 (08:54→17:36)
--- NOTE | 2016-10-16 09:00 | Cardiology Progress Note ---
Subjective Time Seen by Provider: 08:59 Subjective/Events-last exam Patient is in bed. Denies any CP or dyspnea. Review of Systems General: No Night Sweats, No Fatigue, No Malaise HEENT: No Visual Changes, No Dysphasia Pulmonary: No Dyspnea, No Cough, No Pleuritic Chest Pain Cardiovascular: No: Chest Pain, Palpitations, Edema Gastrointestinal: No: Nausea, Vomiting, Abdominal Pain Genitourinary: No Dysuria, No Frequency Musculoskeletal: No: neck pain, back pain Neurological: No: Weakness, Numbness, Change in speech, Confusion Objective-Cardiology Exam Last Set of Vital Signs Vital Signs 10/16/16 08:00 Temp 97.3 Pulse 68 Resp 18 B/P (MAP) 131/85 Pulse Ox 99 O2 Delivery Room Air Capillary Refill : Less Than 3 Seconds I&O Intake and Output 10/17/16 00:00 Intake Total 2300 ml Balance 2300 ml Intake Oral 1300 ml IV Total 1000 ml # Voids 3 General: Alert, Oriented X3, Cooperative, No Acute Distress HEENT: Atraumatic, PERRLA Lungs: Clear to Auscultation, Normal Air Movement Heart: Regular Rate, Normal S1, Normal S2, No Murmurs Abdomen: Normal Bowel Sounds, Soft, No Tenderness, No Hepatosplenomegaly, No Masses Extremities: No Clubbing, No Cyanosis, No Edema, Normal Pulses, No Tenderness/ Swelling Skin: No Rashes, No Breakdown, No Significant Lesion Neuro: Normal Gait, Normal Speech, Strength at 5/5 X4 Ext, Normal Tone, Sensation Intact Psych/Mental Status: Mental Status NL, Mood NL Results Lab Laboratory Tests 10/15/16 13:25 10/16/16 04:16 A/P-Cardiology Admission Diagnosis Acute ST elevation myocardial infarction Coronary artery disease Hypertension Hyperlipidemia Diabetes mellitus Assessment/Plan Acute ST elevation myocardial infarction, recent stenting to the LAD, patient skipped Plavix for 2 days, had ST elevation in the anterior wall,underwent emergency cardiac catheterization. EKG today reveals SR with RBBB. Coronary artery disease, cardiac catheterization was done on October 15, 2016 showing severe disease at the mid LAD, underwent stent placement using Xience Alpine 3.015 mm with excellent results, admitted with acute ST elevation myocardial infarction yesterday, underwent emergency cardiac catheterization which showed total occlusion of the stent with thrombus, underwent thrombectomy with door to balloon time of 30 minutes (1313 door time-1343 thrombectomy time) , patient had thrombus within the stent, underwent deployment of 2 stents overlapping Xience Alpine 3.018 mm and 2.75 x 15 extended proximally to 3.25 and at the overlap area to 3.1 and distally 3.0. Excellent results, patient felt better immediately,continue on aspirin and Brilinta. Evaluate CYP 2 C1 9 level. Once again educated on the importance of compliance with medications. Hypertension, restart lisinopril 10mg and continue to monitor. Intolerance to beta blockers secondary to bradycardia. Hyperlipidemia, hypertriglyceridemia, Change Crestor to Lipitor 80 mg daily and add Fish oil and monitor Diabetes mellitus, followed and managed by primary care physician Clinical Quality Measures AMI/AHF: ASA po Prior to arrival: No DVT/VTE Risk/Contraindication: Risk Factor Score Per Nursin RFS Level Per Nursing on Admit: 4+=Very High YANET SIMPSON Oct 16, 2016 09:00
--- NOTE | 2016-10-16 09:51 | Cardiology Progress Note ---
Subjective Date Seen by Provider: Oct 16, 2016 Time Seen by Provider: 09:48 Subjective/Events-last exam patient is slightly anxious and short of breath, denied any chest pain, no palpitation, groin is healing well. I had a long discussion with him and his family again about compliance with medication I provided him with coupon for Brilinta for 30 day supply and send a prescription to his pharmacy and requested that his family pickup the medication today and I will consider discharge him tomorrow if he continued to improve. Review of Systems General: No Chills, No Night Sweats, No Fatigue, No Malaise, No Appetite, No Other HEENT: No Head Aches, No Visual Changes, No Eye Pain, No Ear Pain, No Dysphasia , No Sinus Congestion, No Post Nasal Drip, No Sore Throat, No Other Pulmonary: Dyspnea, No Cough, No Pleuritic Chest Pain, No Other Cardiovascular: No: Chest Pain, Palpitations, Orthopnea, Paroxysmal Noc. Dyspnea, Edema, Lt Headedness, Other Objective-Cardiology Exam Last Set of Vital Signs Vital Signs 10/16/16 08:00 Temp 97.3 Pulse 68 Resp 18 B/P (MAP) 131/85 Pulse Ox 99 O2 Delivery Room Air Capillary Refill : Less Than 3 Seconds I&O Intake and Output 10/17/16 00:00 Intake Total 2300 ml Balance 2300 ml Intake Oral 1300 ml IV Total 1000 ml # Voids 3 General: Alert, Oriented X3, Cooperative, No Acute Distress HEENT: Atraumatic, PERRLA Lungs: Clear to Auscultation, Normal Air Movement Heart: Regular Rate, Normal S1, Normal S2, No Murmurs Abdomen: Normal Bowel Sounds, Soft, No Tenderness, No Hepatosplenomegaly, No Masses Extremities: No Clubbing, No Cyanosis, No Edema, Normal Pulses, No Tenderness/ Swelling Skin: No Rashes, No Breakdown, No Significant Lesion Neuro: Normal Gait, Normal Speech, Strength at 5/5 X4 Ext, Normal Tone, Sensation Intact Psych/Mental Status: Mental Status NL, Mood NL Results Lab Laboratory Tests 10/15/16 13:25 10/16/16 04:16 A/P-Cardiology Admission Diagnosis Acute ST elevation myocardial infarction Coronary artery disease Hypertension Hyperlipidemia Diabetes mellitus Assessment/Plan Acute ST elevation myocardial infarction, recent stenting to the LAD, patient skipped Plavix for 2 days, had ST elevation in the anterior wall,underwent emergency cardiac catheterization. EKG today reveals SR with RBBB, improvement compared to yesterday. Mild shortness of breath.chest x-ray did not show any acute abnormality. Patient is fairly anxious. I instructed him to get out of bed and walk and I will monitor him, evaluate chest x-ray and BNP tomorrow Coronary artery disease, cardiac catheterization was done on October 15, 2016 showing severe disease at the mid LAD, underwent stent placement using Xience Alpine 3.015 mm with excellent results, admitted with acute ST elevation myocardial infarction yesterday, underwent emergency cardiac catheterization which showed total occlusion of the stent with thrombus, underwent thrombectomy with door to balloon time of 30 minutes (1313 door time-1343 thrombectomy time) , patient had thrombus within the stent, underwent deployment of 2 stents overlapping Xience Alpine 3.018 mm and 2.75 x 15 extended proximally to 3.25 and at the overlap area to 3.1 and distally 3.0. Excellent results, patient felt better immediately,continue on aspirin and Brilinta. Evaluate [id number] level. Once again educated on the importance of compliance with medications. I started him him on Brilinta, provided him with coupon for 30 day supply and requested that the family brings the medication today from his pharmacy prior to discharge Hypertension, restart lisinopril 10mg and continue to monitor. Intolerance to beta blockers secondary to bradycardia. Hyperlipidemia, hypertriglyceridemia, Change Crestor to Lipitor 80 mg daily and add Fish oil and monitor Diabetes mellitus, followed and managed by primary care physician Clinical Quality Measures AMI/AHF: ASA po Prior to arrival: No DVT/VTE Risk/Contraindication: Risk Factor Score Per Nursin RFS Level Per Nursing on Admit: 4+=Very High MARCELINO CADENA MD Oct 16, 2016 09:51
[2016-10-16] MEDS: GLIMEPIRIDE 2 MG (AMARYL) TAB PO SCH (11:45)
[2016-10-16] MEDS: lisINopril 10 MG (PRINIVIL) TAB PO SCH (11:45)
[2016-10-16] MEDS: PANTOPRAZOLE 20 MG TABLET (PROTONIX) PO SCH (11:45)
[2016-10-16] MEDS ORDERED: CLOP75TA69 PO (13:57)
[2016-10-16] MEDS ORDERED: ATOR10TA PO (13:57)
[2016-10-16] MEDS: ATORVASTATIN 80 MG (LIPITOR) TABLET PO SCH (21:11)
[2016-10-17] VITALS: BP 146/74
[2016-10-17 03:40] VITALS: BP 157/79
[2016-10-17] MEDS: PANTOPRAZOLE 20 MG TABLET (PROTONIX) PO SCH (05:58)
[2016-10-17] MEDS: GLIMEPIRIDE 2 MG (AMARYL) TAB PO SCH (05:58)
[2016-10-17] MEDS: OMEGA 3 (FISH OIL) 1000 MG CAP PO SCH (05:58)
[2016-10-17 06:28] LABS: MEAN PLATELET VOLUME 10.3 FL (7.4-10.4); RED BLOOD COUNT 4.93 10^6/uL (4.35-5.85); RED CELL DISTRIBUTION WIDTH 16.8 % (10.0-14.5); WHITE BLOOD COUNT 7.1 10^3/uL (4.3-11.0)
[2016-10-17 06:44] LABS: CALCIUM 9.7 MG/DL (8.5-10.1); CREATININE SERUM 1.32 MG/DL (0.60-1.30)
[2016-10-17 06:58] LABS: TROPONIN I 4.62 NG/ML (<0.30)
[2016-10-17 08:00] VITALS: BP 129/71
[2016-10-17] MEDS: ASPIRIN E.C. 81 MG (ECOTRIN) TAB PO SCH (08:18)
[2016-10-17] MEDS: lisINopril 10 MG (PRINIVIL) TAB PO SCH (08:18)
[2016-10-17] MEDS: TICAGRELOR 90 MG TABLET (BRILINTA) PO SCH (08:18)
--- NOTE | 2016-10-17 08:32 | Cardiology Discharge Summary ---
Diagnosis/Chief Complaint Date of Admission Oct 15, 2016 at 16:16 Date of Discharge October 17, [address] elevation myocardial infarction Coronary artery disease Hypertension Hyperlipidemia Diabetes mellitus Discharge Diagnosis acute ST elevation myocardial infarction and coronary artery disease Hypertension Hyperlipidemia Diabetes mellitus Chief Complaint/HPI Chief Complaint/HPI 66 years old gentleman with coronary artery disease, had a stent placed in the LAD last week discharge home and educated in length about the importance on taking his medication, patient skipped 2 days of Plavix, started it back yesterday, he was doing well until his afternoon when he started having sudden onset chest pain and shortness of breath diaphoresis, lethargy. Came into the emergency room and noted to have ST elevation myocardial infarction, I was called to the emergency room for evaluation patient was thrashing, anxious and having severe pain and shortness of breath and diaphoretic. We decided to proceed with emergency cardiac catheterization, procedure was explained to the patient and his and we proceeded with the procedure Patient underwent cardiac catheterization which showed total occlusion of the stent, probably due to noncompliance with medication, 2 more stents were placed. Had long discussion with the patient and his family provided him coupon for 30 day supplies and asked him to facility yesterday, this morning he did not fill the prescription yet, I will offer him samples and encouraged him to take his medication. He is feeling well denied chest pain or shortness of breath. Discharge Summary Hospital Course Hospital Course Acute ST elevation myocardial infarction, recent stenting to the LAD, patient skipped Plavix for 2 days, had ST elevation in the anterior wall,underwent emergency cardiac catheterization. educated in length on compliance with medication. Mild shortness of breath, feeling better. Continue to monitor Coronary artery disease, cardiac catheterization was done on October 15, 2016 showing severe disease at the mid LAD, underwent stent placement using Xience Alpine 3.015 mm with excellent results, admitted with acute ST elevation myocardial infarction yesterday, underwent emergency cardiac catheterization which showed total occlusion of the stent with thrombus, underwent thrombectomy with door to balloon time of 30 minutes (1313 door time-1343 thrombectomy time) , patient had thrombus within the stent, underwent deployment of 2 stents overlapping Xience Alpine 3.018 mm and 2.75 x 15 extended proximally to 3.25 and at the overlap area to 3.1 and distally 3.0. Excellent results, patient felt better immediately,continue on aspirin and Brilinta. Evaluate [id number] level. Once again educated on the importance of compliance with medications. I started him him on Brilinta, provided him with coupon for 30 day supply and requested that the family brings the medication today from his pharmacy prior to discharge. Cardiac catheterization finding, [address] elevation myocardial infarction involving total occlusion of the fresh stent in the LAD due to noncompliance with medication, successful thrombectomy then deployment of 2 Xience Alpine overlapping stent 3.018 mm and 2.7512 mm expanded to 3.0 distally and 3.2 proximally, excellent results with establishment of the flow. 2. Patient was started on Angiomax and Brilinta instead of Plavix, continue on aspirin. Hypertension, cannot tolerate beta isabela secondary to bradycardia, restarted on lisinopril 10 mg daily, monitor blood pressure, evaluate BMP in 1 week Hyperlipidemia, hypertriglyceridemia, Change Crestor to Lipitor 80 mg daily and add Fish oil and monitor Diabetes mellitus, followed and managed by primary care physician Noncompliance with medication, I provided him coupon for Brilinta for 30 day supply but the family did not fill it, I offered him to stop by the office and pick, samples. Encouraged him to be more compliant Labs Laboratory Tests 10/15/16 13:25: Hemoglobin 12.3L, Hematocrit 38L, Mean Corpuscular Volume 74L, Mean Corpuscular Hemoglobin 24L, Red Cell Distribution Width 16.5H, Platelet Count 429H, Sodium Level 134L, Carbon Dioxide Level 19L, Blood Urea Nitrogen 22H, Creatinine 1.82H , Glucose Level 284H, Myoglobin 106.7H 10/16/16 04:16: Hemoglobin 10.7L, Hematocrit 33L, Mean Corpuscular Volume 75L, Red Cell Distribution Width 16.3H, Sodium Level 132L, Carbon Dioxide Level 20L, Glucose Level 212H, Magnesium Level 1.6L, Troponin I 10.57*H, Triglycerides Level 160H, HDL Cholesterol 28L 10/17/16 05:15: Hemoglobin 12.0L, Hematocrit 37L, Mean Corpuscular Volume 75L, Mean Corpuscular Hemoglobin 24L, Red Cell Distribution Width 16.8H, Creatinine 1.32H, Glucose Level 221H, Troponin I 4.62*H, B-Type Natriuretic Peptide 103.4H Procedures None. Discharge Physical Examination Allergies: Coded Allergies: No Known Drug Allergies (Unverified , 05/16/13) Vitals & I&Os Vital Signs Date Time Temp Pulse Resp B/P (MAP) Pulse Ox O2 Delivery O2 Flow Rate FiO2 10/17/16 03:40 99.3 70 20 157/79 97 Room Air 10/15/16 20:00 1.00 General Appearance: Alert, Oriented X3, Cooperative, No Acute Distress HEENT: Atraumatic, PERRLA Respiratory: Clear to Auscultation, Normal Air Movement Cardiovascular: Regular Rate, Normal S1, Normal S2, No Murmurs Abdominal: Normal Bowel Sounds, Soft, No Tenderness, No Hepatosplenomegaly, No Masses Extremities: No Clubbing, No Cyanosis, No Edema, Normal Pulses, No Tenderness/ Swelling Skin: No Rashes, No Breakdown, No Significant Lesion Neuro: Normal Gait, Normal Speech, Strength at 5/5 X4 Ext, Normal Tone, Sensation Intact, Cranial Nerves 3-12 NL, Reflexes 2+ Psych/Mental Status: Mental Status NL, Mood NL Discharge Home Medications Reviewed and agree with Discharge Medication list on patient's Discharge Instruction sheet Instructions to Patient/Family Please see electonic discharge instructions given to patient. Clinical Quality Measures AMI/AHF: ASA po Prior to arrival: No DVT/VTE Risk/Contraindication: Risk Factor Score Per Nursin RFS Level Per Nursing on Admit: 4+=Very High MARCELINO CADENA MD Oct 17, 2016 08:32
[2016-10-17] MEDS ORDERED: ATOR80TA76 PO (08:34)
--- NOTE | 2016-10-17 08:35 | Discharge Inst-Post CATH ---
Discharge Inst-CATH Post Cardiac Cath D/C Inst Follow Up/Plan Stop Plavix May start metformin on Friday morning Start Brilinta BMP/blood work on October [address] Mireles in 2 weeks CARDIAC CATH DISCHARGE INSTRUCTIONS *Hold Metformin for 48 hours post heart cath. ACTIVITY * Go Home directly and rest. * Limit activity of the leg (or wrist if it was used) for 7 days including aerobics, swimming, jogging, bicycling, etc. * Restrict stair-climbing for 7 days if possible, if not, climb up with your non -cath leg, then bring together on the same step. * Avoid lifting, pushing, pulling or excessive movement of the affected extremity for 7 days. * Customary sexual activity may be resumed after 2 days-use caution not to use a position that strains or causes pain to the affected extremity. * No driving for 24 hours. * NO SMOKING. * Avoid straining for bowel movements for 7 days. * Gentle walking on level ground is allowed. * Returning to work will depend on the type of procedure and the results. Your doctor will discuss this with you. CALL YOUR DOCTOR FOR ANY OF THE FOLLOWING: *If bleeding from the puncture site occurs- Apply gentle pressure to site with clean cloth and call your doctor or EMS. * If a knot or lump forms under the skin, increases in size, or causes pain. * If bruising appears to be worsening or moving further down your leg instead of disappearing. * Temperature above 101 F. CARE OF YOUR GROIN INCISION; * Bruising or purple discoloration of the skin near the puncture site is common. * You may shower only, no bathtub bathing for 5 days. Be careful to avoid slipping as your leg may feel stiff. * If a closure device was used on your femoral artery, please see the attached guide regarding care of the device and your leg. * REMOVE the dressing from your groin the next day after your procedure in the shower. CARE OF YOUR WRIST INCISION; * Bruising or purple discoloration of the skin near the puncture site is common. * You may shower. * DO NOT submerge wrist. * Remove dressing in 24 hours. MARCELINO MIRELES MD Oct 17, 2016 08:35
[2016-10-23 13:53] LABS: CYP2C19 GENO *2/Neg; CYP2C19 SPEC Whole Blood
== END 2016-10-17 10:45 | disposition home or self-care (01) | DRG 247 ==
LOC: EDUNIT# 13:13 → ER 13:16 → CATH 13:32 → ICU 16:16 → 4TH 10-16 22:53
PROVIDERS: ADMIT Internal Medicine Cardiovascular Disease; ATTEND Internal Medicine Cardiovascular Disease
PROC: 027035Z Dilation of Coronary Artery, One Artery with Two Drug-eluting Intraluminal Devices, Percutaneous Approach (ICD-10-PCS; principal; 2016-10-15)
PROC: 02C03ZZ Extirpation of Matter from Coronary Artery, One Artery, Percutaneous Approach (ICD-10-PCS; 2016-10-15)
PROC: B2101ZZ Fluoroscopy of Single Coronary Artery using Low Osmolar Contrast (ICD-10-PCS; 2016-10-15)
DX: I21.09 ST elevation (STEMI) myocardial infarction involving other coronary artery of anterior wall (principal); T82.867A Thrombosis due to cardiac prosthetic devices, implants and grafts, initial encounter; I25.10 Atherosclerotic heart disease of native coronary artery without angina pectoris; Z91.14 Patient's other noncompliance with medication regimen; I10 Essential (primary) hypertension; E78.1 Pure hyperglyceridemia; E78.00 Pure hypercholesterolemia, unspecified; E78.5 Hyperlipidemia, unspecified; E11.9 Type 2 diabetes mellitus without complications; M10.9 Gout, unspecified; Z79.84 Long term (current) use of oral hypoglycemic drugs
CPT/HCPCS: 36415; 71010; 80048; 80053; 80061; 81225; 83735; 83874; 83880; 84100; 84484; 85025; 85027; 85610; 85730; 93005; 93041; 93306; 93454; 96372; 96374

== ENCOUNTER → 2016-10-22 | Outpatient (CLI) | payer MEDICARE, OTHER ==
[~2016-10-22] MED LIST changes: +ATOR10TA PO; +ATOR80TA76 PO; +CLOP75TA69 PO; +TICA90TA PO; -morphine INJ 10 MG/ML 1ML (SYR OR VIAL) ONE
[2016-10-22 12:33] LABS: CREATININE SERUM 1.53 MG/DL (0.60-1.30); POTASSIUM 4.2 MMOL/L (3.6-5.0)
== END ==
LOC: LAB 11:53
PROVIDERS: ATTEND Family Medicine
DX: R06.00 Dyspnea, unspecified (principal)
CPT/HCPCS: 36415; 80048

== ENCOUNTER → 2016-10-24 | Outpatient (CLI) | payer MEDICARE, OTHER ==
[~2016-10-24] MED LIST changes: +HYDR-3812 PO; +PRED10TA22 PO
--- NOTE | 2016-10-24 13:11 | Diagnostic Imaging Report ---
PROCEDURE: US left lower extremity venous. TECHNIQUE: Multiple real-time grayscale images were obtained over the left lower extremity in various projections. Additional duplex Doppler and color Doppler images were also obtained. Indication: Left ankle swelling. Comparison: None available. Findings: The left common femoral, femoral and popliteal veins are patent without evidence of DVT. Visualized proximal aspects of the greater saphenous, deep femoral, posterior tibial and peroneal veins are also patent. All of the evaluated deep venous structures demonstrate normal compressibility and waveform augmentation where applicable. Incidental note is made of a simple Barber's cyst measuring 4.3 x 1.2 x 3.9 cm. Impression: No left lower extremity deep venous thrombosis (DVT). Dictated by: Dictated on workstation # [id number]
== END ==
LOC: RAD 12:17
PROVIDERS: ATTEND Family Medicine
DX: R22.42 Localized swelling, mass and lump, left lower limb (principal)
CPT/HCPCS: 36415; 84550

== ENCOUNTER 2016-10-25 00:47 | Observation (INO) | payer MEDICARE, OTHER ==
[~2016-10-25] VITALS: Ht 185.4 cm; Wt 85.9 kg
[~2016-10-25 00:47] MED LIST changes: -HYDR-3812 PO; -PRED10TA22 PO
[2016-10-25] MEDS ORDERED: ASPIRIN 81 MG CHEW (CHILDREN'S ASA) PO ONE (01:15)
[2016-10-25 01:18] LABS: BASOPHILS # (AUTO) 0.1 10^3/uL (0.0-0.1); BASOPHILS % (AUTO) 1 % (0-10); EOSINOPHILS # (AUTO) 0.2 10^3/uL (0.0-0.3); EOSINOPHILS % (AUTO) 2 % (0-10); LYMPHOCYTES % (AUTO) 19 % (12-44); MEAN CORPUSCULAR HEMOGLOBIN 25 PG (25-34); MEAN CORPUSCULAR HGB CONC 33 G/DL (32-36); MEAN CORPUSCULAR VOLUME 76 FL (80-99); MEAN PLATELET VOLUME 9.5 FL (7.4-10.4); MONOCYTES # (AUTO) 0.9 X 10^3 (0.0-1.0); MONOCYTES % (AUTO) 9 % (0-12); NEUTROPHILS # (AUTO) 7.4 X 10^3 (1.8-7.8); NEUTROPHILS % (AUTO) 70 % (42-75); PLATELET COUNT 396 10^3/uL (130-400); RED BLOOD COUNT 4.26 10^6/uL (4.35-5.85); RED CELL DISTRIBUTION WIDTH 16.7 % (10.0-14.5); WHITE BLOOD COUNT 10.6 10^3/uL (4.3-11.0)
[2016-10-25 01:28] LABS: INR 0.9 (0.8-1.4); PROTHROMBIN TIME PATIENT 12.5 SEC (12.2-14.7)
--- NOTE | 2016-10-25 01:33 | ED Chest Pain ---
General Chief Complaint: Chest Pain Stated Complaint: LEFT ANKLE SWOLLEN Source: patient Exam Limitations: no limitations History of Present Illness Time seen by provider: 01:20 Initial Comments Here with report of left ankle pain is quite significant and worsening over the last 24 hours. Also has 2 out of 10 left-sided chest pain. Has history of recent cardiac event including STEMI and required stenting 3. Reports taking his meds as directed. Did have ultrasound of the left lower extremity yesterday for possibility of DVT. Denies nausea, vomiting, breathing problems or fever. Timing/Duration: 12-24 hours Severity/Quality: moderate, aching Location: central Radiation: no radiation Prior CP/Workup: cardiac cath, echocardiography, heart attack Modifying Factors: improves with rest ASA po TRIMMER MACHINE: Yes NTG SL TRIMMER MACHINE: No Associated Symptoms: No back pain, No fever/chills, No nausea/vomiting, No shortness of breath, No weakness Allergies and Home Medications Allergies Coded Allergies: No Known Drug Allergies (Unverified , 05/16/13) Home Medications Aspirin 81 Mg Tablet., 81 MG PO DAILY, (Reported) Atorvastatin Calcium 80 Mg Tablet, 80 MG PO HS, #30 Ref 4 Prescribed by: MARCELINO CADENA on 10/17/16 0834 Glimepiride 2 Mg Tablet, 2 MG PO DAILY, (Reported) Lisinopril 10 Mg Tablet, 10 MG PO DAILY, (Reported) Metformin HCl 500 Mg Tablet, 1,000 MG PO BID, (Reported) TAKES 2 (500MG) TABLETS Mv,Minerals/FA/Lycopene/Ginkgo 1 Each Tablet, 1 TAB PO DAILY, (Reported) [address] Polyunsat Fatty Acids 1,000 Mg Cap, 1,000 MG PO BID, (Reported) Omeprazole Magnesium 20 Mg Tablet.dr, 20 MG PO DAILY PRN for HEARTBURN, ( Reported) Ticagrelor 90 Mg Tablet, 90 MG PO BID, #60 Ref 4 Prescribed by: MARCELINO CADENA on 10/16/16 0813 Review of Systems Constitutional: see HPI, No chills, No fever EENTM: No Symptoms Reported Respiratory: No Symptoms Reported Cardiovascular: See HPI, Chest Pain, Denies Edema, Denies Lightheadedness Gastrointestinal: No Symptoms Reported, Denies Nausea, Denies Vomiting Genitourinary: No Symptoms Reported Musculoskeletal: see HPI, joint pain, joint swelling Skin: no symptoms reported Psychiatric/Neurological: No Symptoms Reported Endocrine: No Symptoms Reported All Other Systems Reviewed Negative Unless Noted: Yes Past Dfirsmx-Nzbmra-Wowzmu Hx Patient Social History Alcohol Use: Denies Use Recreational Drug Use: No Smoking Status: Never a Smoker 2nd Hand Smoke Exposure: No Recent Foreign Travel: No Contact w/Someone Who Travel: No Recent Hopitalizations: No Immunizations Up To Date Tetanus Booster (TDap): Unknown PED Vaccines UTD: Yes Date of Pneumonia Vaccine: Mar 15, 2013 Date of Influenza Vaccine: Feb 17, 2015 Seasonal Allergies Seasonal Allergies: No Surgeries History of Surgeries: Yes (CATARACTS, EYELID TUCK, ) Surgeries: Coronary Stent, Eye Surgery, Testicular Respiratory History of Respiratory Disorde: No Currently Using CPAP: No Cardiovascular History of Cardiac Disorders: Yes Cardiac Disorders: High Cholesterol, Hypertension Neurological History of Neurological Disord: No Genitourinary History of Genitourinary Disor: No Gastrointestinal History of Gastrointestinal Di: No Musculoskeletal History of Musculoskeletal Dis: Yes Musculoskeletal Disorders: Gout Endocrine History of Endocrine Disorders: Yes Endocrine Disorders: Diabetes, Non-Insulin dep HEENT History of HEENT Disorders: Yes HEENT Disorders: Cataract Cancer History of Cancer: No Psychosocial History of Psychiatric Problem: No Integumentary History of Skin or Integumenta: No Blood Transfusions History of Blood Disorders: No Reviewed Nursing Assessment Reviewed/Agree w Nursing PMH: Yes Family Medical History Family Medial History: Cataract 19 FATHER Chest pain 19 MOTHER Dementia 19 MOTHER Family history: Alzheimer's disease 19 MOTHER Family history: Arthritis 19 MOTHER Family history: Diabetes mellitus 19 MOTHER Family history: Hypertension 19 FATHER 19 MOTHER G8 SISTER Headache Hypercholesterolemia 19 FATHER 19 MOTHER G8 SISTER Kidney disease 19 FATHER Prostate cancer 19 FATHER Stroke 19 FATHER Visual impairment 19 MOTHER G8 BROTHER G8 BROTHER G8 SISTER Physical Exam Vital Signs Vital Sign - Last 12Hours 10/25/16 00:55 Temp 97.8 Pulse 88 Resp 14 B/P (MAP) 147/97 Pulse Ox 99 O2 Delivery Room Air Capillary Refill : General Appearance: WD/WN, Mild Distress HEENT: PERRL/EOMI, Pharynx Normal Neck: Non Tender, Supple Respiratory: Lungs Clear, Normal Breath Sounds Cardiovascular: Regular Rate, Rhythm, No Murmur Gastrointestinal: Non Tender, Soft Extremity: Normal Range of Motion, Non Tender Neurologic/Psychiatric: Alert, Oriented x3 Skin: Normal Color, Warm/Dry Progress/Results/Core Measures Results/Orders Lab Results Laboratory Tests Test 10/25/16 01:10 Range/Units White Blood Count 10.6 4.3-11.0 10^3/uL Red Blood Count 4.26 L 4.35-5.85 10^6/uL Hemoglobin 10.6 L 13.3-17.7 G/DL Hematocrit 32 L 40-54 % Mean Corpuscular Volume 76 L 80-99 FL Mean Corpuscular Hemoglobin 25 25-34 PG Mean Corpuscular Hemoglobin Concent 33 32-36 G/DL Red Cell Distribution Width 16.7 H 10.0-14.5 % Platelet Count 396 130-400 10^3/uL Mean Platelet Volume 9.5 7.4-10.4 FL Neutrophils (%) (Auto) 70 42-75 % Lymphocytes (%) (Auto) 19 12-44 % Monocytes (%) (Auto) 9 0-12 % Eosinophils (%) (Auto) 2 0-10 % Basophils (%) (Auto) 1 0-10 % Neutrophils # (Auto) 7.4 1.8-7.8 X 10^3 Lymphocytes # (Auto) 2.0 1.0-4.0 X 10^3 Monocytes # (Auto) 0.9 0.0-1.0 X 10^3 Eosinophils # (Auto) 0.2 0.0-0.3 10^3/uL Basophils # (Auto) 0.1 0.0-0.1 10^3/uL Prothrombin Time 12.5 12.2-14.7 SEC INR Comment 0.9 0.8-1.4 Activated Partial Thromboplast Time 29 24-35 SEC Sodium Level 130 L 135-145 MMOL/L Potassium Level 3.9 3.6-5.0 MMOL/L Chloride Level 98 98-107 MMOL/L Carbon Dioxide Level 22 21-32 MMOL/L Anion Gap 10 5-14 MMOL/L Blood Urea Nitrogen 16 7-18 MG/DL Creatinine 1.21 0.60-1.30 MG/DL Estimat Glomerular Filtration Rate 60 BUN/Creatinine Ratio 13 Glucose Level 187 H 70-105 MG/DL Calcium Level 9.5 8.5-10.1 MG/DL Magnesium Level 1.5 L 1.8-2.4 MG/DL Total Bilirubin 0.5 0.1-1.0 MG/DL Aspartate Amino Transf (AST/SGOT) 14 5-34 U/L Alanine Aminotransferase (ALT/SGPT) 18 0-55 U/L Alkaline Phosphatase 92 40-136 U/L Myoglobin 46.3 10.0-92.0 NG/ML Troponin I < 0.30 <0.30 NG/ML Total Protein 7.0 6.4-8.2 GM/DL Albumin 3.8 3.2-4.5 GM/DL My Orders Orders - VIRGILIO HENNING MD Cbc With Automated Diff (10/25/16 01:02) Magnesium (10/25/16 01:02) Chest 1 View, Ap/Pa Only (10/25/16 01:02) Ekg Tracing (10/25/16 01:02) Cardiac Profile 1 (10/25/16 01:02) Comprehensive Metabolic Panel (10/25/16 01:02) Myoglobin Serum (10/25/16 01:02) Protime With Inr (10/25/16 01:02) Partial Thromboplastin Time (10/25/16 01:02) O2 (10/25/16 01:02) Monitor-Rhythm Ecg Trace Only (10/25/16 01:02) Lipid Panel (10/26/16 06:00) Aspirin Chewable Tablet (Baby Aspirin Ch (10/25/16 01:15) Saline Lock/Iv-Start (10/25/16 01:02) Ankle, Left, 3 Views (10/25/16 01:33) Fentanyl Injection (Sublimaze Injection (10/25/16 01:34) Ketorolac Injection (Toradol Injection) (10/25/16 01:34) Prednisone Tablet (Deltasone Tablet) (10/25/16 01:45) Medications Given in ED Current Medications Medications Dose Ordered Sig/Chapito Route Start Time Stop Time Status Last Admin Dose Admin Aspirin 324 mg ONCE ONCE PO 10/25/16 01:15 10/25/16 01:16 DC 10/25/16 01:51 324 MG Prednisone 40 mg ONCE ONCE PO 10/25/16 01:45 10/25/16 01:46 DC 10/25/16 01:51 40 MG Vital Signs/I&O Vital Sign - Last 12Hours 10/25/16 00:55 Temp 97.8 Pulse 88 Resp 14 B/P (MAP) 147/97 Pulse Ox 99 O2 Delivery Room Air Progress Note : Progress Note Seen and evaluated. IV, labs, EKG and chest x-ray ordered. X-ray left ankle ordered. Reviewed labs and ultrasound from previous day which showed no significant findings. Fentanyl 50 g IV and prednisone 40 mg by mouth given. Toradol 15 mg IV for ankle pain. Monitor patient. 0223: No significant findings and pain is improved. I did discuss the case with Dr. Douglass. Due to significant recent history including STEMI and stenting 3, patient will be admitted for observation for the chest pain. We will continue prednisone therapy for possible gout of the left ankle. Patient and family agree with plan. Admit, observation status. Fasting lipid studies not ordered as patient has recent fasting lipid studies done. ECG Initial ECG Impression Date: Oct 25, 2016 Initial ECG Impression Time: 00:59 Initial ECG Rate: 74 Initial ECG Rhythm: Normal Sinus Comment Sinus rhythm with first-degree AV block and right bundle branch block. Normal axis. No evidence of ST elevation [place]. Similar to previous of 10/11/16. Interpreted by me. Diagnostic Imaging Diagonstic Imaging: Xray Plain Films/CT/US/NM/MRI: chest Comments No acute findings Diagonstic Imaging: Xray Plain Films/CT/US/NM/MRI: ankle Comments No acute findings Departure Communication (Admissions) Time/Spoke to Admitting Phy: 02:23 Impression Impression: Primary Impression: Chest pain Qualified Codes: R07.9 - Chest pain, unspecified Additional Impression: Gout of left ankle Qualified Codes: M10.9 - Gout, unspecified Disposition: 09 ADMITTED INPATIENT Condition: Stable Admissions Decision to Admit Reason: Admit from ER (General) Decision to Admit/Date: Oct 25, 2016 Time/Decision to Admit Time: 02:23 Departure-Patient Inst. Referrals: AUGIE DOUGLASS DO (PCP/Family) Primary Care Physician VIRGILIO HENNING MD Oct 25, 2016 01:32
[2016-10-25] MEDS ORDERED: fentaNYL INJECTION 100 MCG/2 ML AMP IVP STA (01:34)
[2016-10-25] MEDS ORDERED: KETOROLAC 30 MG/ML VIAL IVP STA (01:34)
[2016-10-25 01:36] LABS: ALANINE AMINOTRANSFERASE 18 U/L (0-55); ALBUMIN 3.8 GM/DL (3.2-4.5); ANION GAP 10 MMOL/L (5-14); ASPARTATE AMINO TRANSFERASE 14 U/L (5-34); BILIRUBIN,TOTAL 0.5 MG/DL (0.1-1.0); BLOOD UREA NITROGEN 16 MG/DL (7-18); BUN/CREATININE RATIO 13; CALCIUM 9.5 MG/DL (8.5-10.1); CARBON DIOXIDE 22 MMOL/L (21-32); CHLORIDE 98 MMOL/L (98-107); CREATININE SERUM 1.21 MG/DL (0.60-1.30); GFR ESTIMATED 60; GLUCOSE 187 MG/DL (70-105); MAGNESIUM 1.5 MG/DL (1.8-2.4); POTASSIUM 3.9 MMOL/L (3.6-5.0); SODIUM 130 MMOL/L (135-145)
[2016-10-25 01:43] LABS: MYOGLOBIN SERUM 46.3 NG/ML (10.0-92.0)
[2016-10-25] MEDS ORDERED: predniSONE 20 MG TAB PO ONE (01:45)
[2016-10-25] MEDS ORDERED: morphine INJ 4 MG/ML 1 ML (VIAL/SYRINGE) IV PRN (04:30)
[2016-10-25] MEDS ORDERED: fentaNYL INJECTION 100 MCG/2 ML AMP IV PRN (04:30)
[2016-10-25] MEDS ORDERED: KETOROLAC 15 MG/ML VIAL IVP PRN (04:30)
[2016-10-25] MEDS ORDERED: NITROGLYCERIN SUBLINGUAL 0.4 MG TAB (NITROSTAT) SL PRN (04:30)
[2016-10-25] MEDS ORDERED: predniSONE 20 MG TAB PO SCH (07:00)
[2016-10-25] MEDS ORDERED: CATHETER FLUSH 10 ML SYR IV PRN (07:15)
--- NOTE | 2016-10-25 07:27 | Diagnostic Imaging Report ---
INDICATION: Chest pain. COMPARISON: None. FINDINGS: Three views of the left ankle are obtained. No acute fracture, malalignment or osseous destructive process is seen. There is plantar calcaneal spurring. There is mild soft tissue swelling. IMPRESSION: Mild soft tissue swelling without evidence of an acute osseous abnormality. Dictated by: Dictated on workstation # [id number]
--- NOTE | 2016-10-25 07:28 | Diagnostic Imaging Report ---
INDICATION: Chest pain. COMPARISON: 10/16/2016 FINDINGS: Upright portable view of the chest is obtained. Heart size is normal. The pulmonary vessels appear unremarkable. There is no pneumothorax, mediastinal widening or pleural fluid. Lungs are clear. IMPRESSION: Negative chest. Dictated by: Dictated on workstation # [id number]
[2016-10-25 07:44] LABS: CREATINE KINASE 78 U/L (30-200)
[2016-10-25 07:51] LABS: MYOGLOBIN SERUM 59.7 NG/ML (10.0-92.0); TROPONIN I < 0.30 NG/ML (<0.30)
--- NOTE | 2016-10-25 07:57 | History & Physicial ---
History of Present Illness History of Present Illness Reason for visit/HPI patient came out to the emergency room due to having chest pain and left ankle pain. Venous Doppler of left left negative. Uric acid within normal limits. Patient recently had 2 cardiac events. Patient has 3 stents . Patient in a diabetic. Patient has hyperlipidemia Date of Admission Oct 25, 2016 at 02:35 Time Seen by Provider: 07:55 I consulted on this patient on 10/25/16 07:53 Attending Physician Frederick Douglass DO Admitting Physician Frederick Douglass DO Consult Allergies and Home Medications Allergies Coded Allergies: No Known Drug Allergies (Unverified , 05/16/13) Home Medications Aspirin 81 Mg Tablet.dr, 81 MG PO DAILY, (Reported) Atorvastatin Calcium 80 Mg Tablet, 80 MG PO HS, #30 Ref 4 Prescribed by: MARCELINO CADENA on 10/17/16 0834 Glimepiride 2 Mg Tablet, 2 MG PO DAILY, (Reported) Lisinopril 10 Mg Tablet, 10 MG PO DAILY, (Reported) Metformin HCl 500 Mg Tablet, 1,000 MG PO BID, (Reported) TAKES 2 (500MG) TABLETS Mv,Minerals/FA/Lycopene/Ginkgo 1 Each Tablet, 1 TAB PO DAILY, (Reported) [place] 3 Polyunsat Fatty Acids 1,000 Mg Cap, 1,000 MG PO BID, (Reported) Omeprazole Magnesium 20 Mg Tablet.dr, 20 MG PO DAILY PRN for HEARTBURN, ( Reported) Ticagrelor 90 Mg Tablet, 90 MG PO BID, #60 Ref 4 Prescribed by: MARCELINO CADENA on 10/16/16 0813 Past Ejheqpd-Dhqyyp-Befnqj Hx Patient Social History Marrital Status: Employed/Student: employed Alcohol Use: Denies Use Recreational Drug Use: No Smoking Status: Never a Smoker 2nd Hand Smoke Exposure: No Physical Abuse Screen: No Sexual Abuse: No Recent Foreign Travel: No Contact w/other who traveled: No Recent Hopitalizations: Yes (HEART CATH) Recent Infectious Disease Expo: No Immunizations Up To Date Tetanus Booster (TDap): Unknown Pediatric: Yes Date of Pneumonia Vaccine: Mar 15, 2013 Date of Influenza Vaccine: Feb 17, 2015 Seasonal Allergies Seasonal Allergies: No Surgeries Yes (CATARACTS, EYELID TUCK, ) Coronary Stent, Eye Surgery, Testicular Respiratory No Currently Using CPAP: No Currently Using BIPAP: No Cardiovascular Yes (STENT PLACEMENT X3) Heart Attack, High Cholesterol, Hypertension Neurological No Reproductive System Sexually Transmitted Disease: No HIV/AIDS: No Genitourinary No Gastrointestinal No Musculoskeletal Yes Gout Endocrine History of Endocrine Disorders: Yes Endocrine Disorders: Diabetes, Non-Insulin dep HEENT History of HEENT Disorders: Yes HEENT Disorders: Cataract Cancer No Psychosocial History of Psychiatric Problem: No Integumentary History of Skin or Integumenta: No Blood Transfusions History of Blood Disorders: No Adverse Reaction to a Blood Tr: No Reviewed Nursing Assessment Reviewed/Agree w Nursing PMH: Yes Family Medical History Family Hx: Cataract 19 FATHER Chest pain 19 MOTHER Dementia 19 MOTHER Family history: Alzheimer's disease 19 MOTHER Family history: Arthritis 19 MOTHER Family history: Diabetes mellitus 19 MOTHER Family history: Hypertension 19 FATHER 19 MOTHER G8 SISTER Headache Hypercholesterolemia 19 FATHER 19 MOTHER G8 SISTER Kidney disease 19 FATHER Prostate cancer 19 FATHER Stroke 19 FATHER Visual impairment 19 MOTHER G8 BROTHER G8 BROTHER G8 SISTER No Family History of: Abdominal aortic aneurysm Michael's disease Alcoholism Aphasia Cancer Cancer of colon Congenital heart disease Congestive heart failure Cystic fibrosis Dysphagia Family history: Allergy Family history: Asthma Family history: Breast disease Family history: Cardiovascular disease Family history: Coronary thrombosis Family history: Gastrointestinal disease Family history: Glaucoma Family history: Osteoporosis Family history: Thyroid disorder Hearing loss Heart disease Hereditary disease History of - anemia History of - disorder History of - respiratory disease History of drug abuse Human immunodeficiency virus (HIV) seropositivity Infertile Malignant neoplasm of lung Myocardial infarction Parkinson's disease Psychotic disorder Seizure disorder Tuberculosis Constitutional: diaphoresis ( chest discomfort, left ankle pain), other (chest discomfort.) EENTM: no symptoms reported Respiratory: no symptoms reported Cardiovascular: no symptoms reported Gastrointestinal: no symptoms reported Genitourinary: no symptoms reported Musculoskeletal: no symptoms reported Physical Exam Vital Signs Vital Sign - Last 12Hours 10/25/16 00:55 Temp 97.8 Pulse 88 Resp 14 B/P (MAP) 147/97 Pulse Ox 99 O2 Delivery Room Air Capillary Refill : Less Than 3 Seconds General Appearance: No Apparent Distress, Other (left ankle was swollen this morning) Eyes: Bilateral Eye Normal Inspection HEENT: Normal ENT Inspection Neck: Full Range of Motion, Non Tender Respiratory: Chest Non Tender, Lungs Clear, No Accessory Muscle Use, No Respiratory Distress Cardiovascular: Regular Rate, Rhythm, No Murmur Gastrointestinal: Non Tender, Soft Assessment/Plan Assessment and Plan chest pain. Gout Patient not having any chest pain this morning. Left ankle much improved with prednisone. Problems: Clinical Quality Measures AMI/AHF: ASA po Prior to arrival: Yes DVT/VTE Risk/Contraindication: Risk Factor Score Per Nursin RFS Level Per Nursing on Admit: 4+=Very High FREDERICK DOUGLASS DO Oct 25, 2016 07:57
[2016-10-25 08:00] VITALS: BP 119/72
[2016-10-25 08:18] LABS: MEAN PLATELET VOLUME 9.7 FL (7.4-10.4); RED BLOOD COUNT 4.38 10^6/uL (4.35-5.85); RED CELL DISTRIBUTION WIDTH 16.6 % (10.0-14.5); WHITE BLOOD COUNT 9.8 10^3/uL (4.3-11.0)
[2016-10-25 08:35] LABS: CALCIUM 9.3 MG/DL (8.5-10.1); CREATININE SERUM 1.3 MG/DL (0.60-1.30); POTASSIUM 4.7 MMOL/L (3.6-5.0)
[2016-10-25] MEDS ORDERED: ASPIRIN E.C. 325 MG (ECOTRIN) TABLET PO SCH (09:00)
[2016-10-25] MEDS ORDERED: TICA90TA PO (09:10)
[2016-10-25] MEDS ORDERED: ATOR80TA76 PO (09:10)
--- NOTE | 2016-10-25 10:09 | Consultation-Cardiology ---
HPI-Cardiology Cardiology Consultation Date of Consultation 10/25/16 Date of Admission Time Seen by Provider: 10:04 Indication: Chest pain, swelling HPI 66 years old gentleman with history of coronary artery disease, myocardial infarction recently, hypertension hyperlipidemia. Patient was doing well until he started having increasing swelling in his ankle and pain mainly in the left ankle which was worsening. He was unable to walk on his foot yesterday due to the pain in the ankle. Had mild swelling. Started having mild chest pain described it as retrosternal discomfort, subtle, no shortness of breath. No palpitation, no syncope or near syncopal episodes. Came into the emergency room and he was admitted. Currently feeling better, denied any active chest pain but still having warm and tender left ankle with mild swelling. No erythema, no ulcers. Home Medications & Allergies Allergies: Coded Allergies: No Known Drug Allergies (Unverified , 05/16/13) Home Medication List Reviewed: Yes KCU-Kfupzz-Hgdntf Hx Patient Social History Marital Status: Employed/Student: employed Alcohol Use: Denies Use Recreational Drug Use: No Smoking Status: Never a Smoker 2nd Hand Smoke Exposure: No Recent Foreign Travel: No Recent Infectious Disease Expo: No Recent Hopitalizations: Yes (HEART CATH) Physical Abuse Screen: No Sexual Abuse: No Immunizations Up To Date Tetanus Booster (TDap): Unknown Date of Pneumonia Vaccine: Mar 15, 2013 Date of Influenza Vaccine: Feb 17, 2015 Past Medical History past medical history as discussed below Family Medical History Family History: 19 FATHER Cataract Family history: Hypertension Hypercholesterolemia Kidney disease Prostate cancer Stroke 19 MOTHER Chest pain Dementia Family history: Alzheimer's disease Family history: Arthritis Family history: Diabetes mellitus Family history: Hypertension Hypercholesterolemia Visual impairment G8 BROTHER Visual impairment G8 BROTHER Visual impairment G8 SISTER Family history: Hypertension Hypercholesterolemia Visual impairment Relation not specified for: Headache Constitutional: no symptoms reported, see HPI EENTM: see HPI, no symptoms reported Respiratory: no symptoms reported, see HPI Cardiovascular: see HPI, chest pain, No edema, No Hx of Intervention, No palpitations, No syncope, No vascular heart diseas, No other Gastrointestinal: no symptoms reported, see HPI Genitourinary: see HPI Musculoskeletal: see HPI, gout, joint pain Skin: see HPI Psychiatric/Neurological: No Symptoms Reported, See HPI Reviewed Test Results Reviewed Test Results Lab Laboratory Tests Test 10/25/16 01:10 10/25/16 06:20 9/8/17 07:18 10/25/16 08:00 Range/Units White Blood Count 10.6 9.8 4.3-11.0 10^3/uL Red Blood Count 4.26 L 4.38 4.35-5.85 10^6/uL Hemoglobin 10.6 L 10.8 L 13.3-17.7 G/DL Hematocrit 32 L 33 L 40-54 % Mean Corpuscular Volume 76 L 76 L 80-99 FL Mean Corpuscular Hemoglobin 25 25 25-34 PG Mean Corpuscular Hemoglobin Concent 33 33 32-36 G/DL Red Cell Distribution Width 16.7 H 16.6 H 10.0-14.5 % Platelet Count 396 358 130-400 10^3/uL Mean Platelet Volume 9.5 9.7 7.4-10.4 FL Neutrophils (%) (Auto) 70 42-75 % Lymphocytes (%) (Auto) 19 12-44 % Monocytes (%) (Auto) 9 0-12 % Eosinophils (%) (Auto) 2 0-10 % Basophils (%) (Auto) 1 0-10 % Neutrophils # (Auto) 7.4 1.8-7.8 X 10^3 Lymphocytes # (Auto) 2.0 1.0-4.0 X 10^3 Monocytes # (Auto) 0.9 0.0-1.0 X 10^3 Eosinophils # (Auto) 0.2 0.0-0.3 10^3/uL Basophils # (Auto) 0.1 0.0-0.1 10^3/uL Prothrombin Time 12.5 12.2-14.7 SEC INR Comment 0.9 0.8-1.4 Activated Partial Thromboplast Time 29 24-35 SEC Sodium Level 130 L 128 L 135-145 MMOL/L Potassium Level 3.9 4.7 3.6-5.0 MMOL/L Chloride Level 98 96 L 98-107 MMOL/L Carbon Dioxide Level 22 21 21-32 MMOL/L Anion Gap 10 11 5-14 MMOL/L Blood Urea Nitrogen 16 17 7-18 MG/DL Creatinine 1.21 1.30 0.60-1.30 MG/DL Estimat Glomerular Filtration Rate 60 55 BUN/Creatinine Ratio 13 13 Glucose Level 187 H 288 H 70-105 MG/DL Calcium Level 9.5 9.3 8.5-10.1 MG/DL Magnesium Level 1.5 L 1.8-2.4 MG/DL Total Bilirubin 0.5 0.1-1.0 MG/DL Aspartate Amino Transf (AST/SGOT) 14 5-34 U/L Alanine Aminotransferase (ALT/SGPT) 18 0-55 U/L Alkaline Phosphatase 92 40-136 U/L Myoglobin 46.3 59.7 10.0-92.0 NG/ML Troponin I < 0.30 < 0.30 <0.30 NG/ML Total Protein 7.0 6.4-8.2 GM/DL Albumin 3.8 3.2-4.5 GM/DL Glucometer 257 H 70-110 MG/DL Total Creatine Kinase 78 30-200 U/L Physical Exam Vital Signs Vital Sign - Last 12Hours 10/25/16 00:55 Temp 97.8 Pulse 88 Resp 14 B/P (MAP) 147/97 Pulse Ox 99 O2 Delivery Room Air Capillary Refill : Less Than 3 Seconds General Appearance: No Apparent Distress, WD/WN Eyes: Bilateral Eye Normal Inspection, Bilateral Eye PERRL, Bilateral Eye EOMI HEENT: PERRL/EOMI, TMs Normal, Normal ENT Inspection, Pharynx Normal Neck: Full Range of Motion, Normal Inspection, Non Tender, Supple, Carotid Bruit Respiratory: Chest Non Tender, Lungs Clear, Normal Breath Sounds, No Accessory Muscle Use, No Respiratory Distress Cardiovascular: Regular Rate, Rhythm, No Edema, No Gallop, No JVD, No Murmur, Normal Peripheral Pulses Gastrointestinal: Normal Bowel Sounds, No Organomegaly, No Pulsatile Mass, Non Tender, Soft Back: Normal Inspection, No CVA Tenderness, No Vertebral Tenderness Extremity: Normal Capillary Refill, Normal Range of Motion, No Calf Tenderness , Other (Left ankle is warm to touch, mild swelling and tender to touch) Neurologic/Psychiatric: Alert, Oriented x3, No Motor/Sensory Deficits, Normal Mood/Affect Skin: Normal Color, Warm/Dry Lymphatic: No Adenopathy A/P-Cardiology Admission Diagnosis Chest pain nonspecific etiology Gouty arthritis Coronary artery disease Hyperlipidemia Diabetes mellitus Assessment/Plan Chest pain nonspecific etiology, atypical in presentation, status post myocardial infarction occurred recently, had another stent placed in the LAD, intermediate metabolizer of Plavix. Maintained on Brilinta. EKG and cardiac enzymes did not show any acute abnormality. Continue to monitor Left ankle swelling and pain. Started on steroids, managed by Dr. Allen. Coronary artery disease, cardiac catheterization was done on October 15, 2016 showing severe disease at the mid LAD, underwent stent placement using Xience Alpine 3.015 mm with excellent results, had another emergency cardiac catheterization which showed total occlusion of the stent with thrombus, underwent deployment of 2 stents overlapping Xience Alpine 3.018 mm and 2.75 x 15 extended proximally to 3.25 and at the overlap area to 3.1 and distally 3.0. Excellent results, patient felt better immediately,continue on aspirin and Brilinta. Intermediate metabolizer to Plavix. Maintained on Brilinta Hypertension, cannot tolerate beta isabela secondary to bradycardia, continue to monitor blood pressure Hyperlipidemia, hypertriglyceridemia, maintained on Lipitor 80 mg daily and fish oil. Continue to monitor Diabetes mellitus, followed and managed by primary care physician Hypomagnesemia, replace magnesium and monitor electrolytes Clinical Quality Measures AMI/AHF: ASA po Prior to arrival: Yes DVT/VTE Risk/Contraindication: Risk Factor Score Per Nursin RFS Level Per Nursing on Admit: 4+=Very High Contraindications-Pharm: Other *list below* MARCELINO CADENA MD Oct 25, 2016 10:09
[2016-10-25] MEDS ORDERED: TICAGRELOR 90 MG TABLET (BRILINTA) PO NR (10:15)
[2016-10-25] MEDS ORDERED: GLIMEPIRIDE 2 MG (AMARYL) TAB PO SCH (10:19)
[2016-10-25] MEDS ORDERED: PANTOPRAZOLE 20 MG TABLET (PROTONIX) PO PRN (10:24)
[2016-10-25] MEDS ORDERED: PATIENT MAY USE OWN MEDS, ALL MC SCH (10:30)
[2016-10-25] MEDS ORDERED: inSUlin (REGULAR) HUMAN 1 UNIT/0.01 ML (CHARGE PER UNIT) ONE (11:37)
[2016-10-25] MEDS: MAGNESIUM 1 GM/100 ML IVPB 100 ML IV SCH ×2 (11:41→12:37)
[2016-10-25] MEDS: OMEGA 3 (FISH OIL) 1000 MG CAP PO SCH ×2 (11:58→17:13)
[2016-10-25 12:00] VITALS: BP 118/76
[2016-10-25 16:00] VITALS: BP 129/77
[2016-10-25] MEDS: CATHETER FLUSH 10 ML SYR IV SCH ×2 (16:29→23:21)
[2016-10-25] MEDS: inSUlin (REGULAR) HUMAN 1 UNIT/0.01 ML (CHARGE PER UNIT) SC SCH ×2 (16:29→23:21)
[2016-10-25] MEDS: metFORMIN 500 MG (GLUCOPHAGE) TAB PO SCH (16:29)
[2016-10-25 20:00] VITALS: BP 125/71
[2016-10-25] MEDS ORDERED: ATORVASTATIN 80 MG (LIPITOR) TABLET PO SCH ×2 (21:00)
[2016-10-25] MEDS ORDERED: metFORMIN 500 MG (GLUCOPHAGE) TAB PO SCH (21:00)
[2016-10-25] MEDS ORDERED: TICAGRELOR 90 MG TABLET (BRILINTA) PO SCH (21:00)
[2016-10-26] VITALS: BP 131/64
[2016-10-26 04:00] VITALS: BP 132/69
[2016-10-26] MEDS: inSUlin (REGULAR) HUMAN 1 UNIT/0.01 ML (CHARGE PER UNIT) SC SCH ×2 (06:11→11:35)
[2016-10-26] MEDS: OMEGA 3 (FISH OIL) 1000 MG CAP PO SCH (06:11)
[2016-10-26] MEDS: CATHETER FLUSH 10 ML SYR IV SCH (06:11)
[2016-10-26] MEDS: metFORMIN 500 MG (GLUCOPHAGE) TAB PO SCH (06:12)
[2016-10-26 06:18] LABS: MEAN PLATELET VOLUME 9.7 FL (7.4-10.4); RED BLOOD COUNT 4.47 10^6/uL (4.35-5.85); RED CELL DISTRIBUTION WIDTH 16.6 % (10.0-14.5); WHITE BLOOD COUNT 10.9 10^3/uL (4.3-11.0)
[2016-10-26 06:39] LABS: ALBUMIN 3.7 GM/DL (3.2-4.5); BILIRUBIN,TOTAL 0.5 MG/DL (0.1-1.0); CALCIUM 9.7 MG/DL (8.5-10.1); CREATININE SERUM 1.22 MG/DL (0.60-1.30); MAGNESIUM 1.8 MG/DL (1.8-2.4); POTASSIUM 4.3 MMOL/L (3.6-5.0); TOTAL PROTEIN 6.7 GM/DL (6.4-8.2)
[2016-10-26] MEDS ORDERED: GLIMEPIRIDE 2 MG (AMARYL) TAB PO SCH (07:00)
[2016-10-26] MEDS ORDERED: predniSONE 10 MG TAB PO SCH (07:00)
[2016-10-26 08:00] VITALS: BP 111/64
[2016-10-26] MEDS ORDERED: TICAGRELOR 90 MG TABLET (BRILINTA) PO SCH (09:00)
[2016-10-26] MEDS ORDERED: ASPIRIN E.C. 81 MG (ECOTRIN) TAB PO SCH ×2 (09:00)
[2016-10-26] MEDS ORDERED: lisINopril 10 MG (PRINIVIL) TAB PO SCH ×2 (09:00)
[2016-10-26] MEDS ORDERED: HYDR-3812 PO (11:40)
[2016-10-26] MEDS ORDERED: PRED10TA22 PO (11:40)
--- NOTE | 2016-10-26 11:42 | Cardiology Progress Note ---
Subjective Date Seen by Provider: Oct 26, 2016 Time Seen by Provider: 11:40 Subjective/Events-last exam patient is feeling better, still having mild pain in his ankle but overall reporting improvement. No chest pain. Review of Systems General: No Chills, No Night Sweats, No Fatigue, No Malaise, No Appetite, No Other HEENT: No Head Aches, No Visual Changes, No Eye Pain, No Ear Pain, No Dysphasia , No Sinus Congestion, No Post Nasal Drip, No Sore Throat, No Other Pulmonary: No Dyspnea, No Cough, No Pleuritic Chest Pain, No Other Cardiovascular: No: Chest Pain, Palpitations, Orthopnea, Paroxysmal Noc. Dyspnea, Edema, Lt Headedness, Other Objective-Cardiology Exam Last Set of Vital Signs Vital Signs 10/26/16 08:00 Temp 97.6 Pulse 60 Resp 18 B/P (MAP) 111/64 Pulse Ox 97 O2 Delivery Room Air Capillary Refill : Less Than 3 Seconds General: Alert, Oriented X3, Cooperative HEENT: Atraumatic, PERRLA Neck: Supple, No JVD, No Thyromegaly Lungs: Clear to Auscultation, Normal Air Movement Heart: Regular Rate, Normal S1, Normal S2, No Murmurs Abdomen: Normal Bowel Sounds, Soft, No Tenderness, No Hepatosplenomegaly, No Masses Extremities: No Clubbing, No Cyanosis, No Edema, Normal Pulses, No Tenderness/ Swelling Skin: No Rashes, No Breakdown, No Significant Lesion Neuro: Normal Gait, Normal Speech, Strength at 5/5 X4 Ext, Normal Tone, Sensation Intact Psych/Mental Status: Mental Status NL, Mood NL Results Lab Laboratory Tests 10/26/16 05:54 10/26/16 05:59 A/P-Cardiology Admission Diagnosis Chest pain nonspecific etiology Gouty arthritis Coronary artery disease Hyperlipidemia Diabetes mellitus Assessment/Plan Chest pain nonspecific etiology, atypical in presentation, status post myocardial infarction occurred recently, had another stent placed in the LAD, intermediate metabolizer of Plavix. Maintained on Brilinta. EKG and cardiac enzymes did not show any acute abnormality. Continue to monitor Intermediate metabolizer for Plavix. Maintained on Brilinta. Educated about compliance with medication taking the medicine regularly Left ankle swelling and pain. Started on steroids, reporting improvement, managed by Dr. Allen. Coronary artery disease, cardiac catheterization was done on October 15, 2016 showing severe disease at the mid LAD, underwent stent placement using Xience Alpine 3.015 mm with excellent results, had another emergency cardiac catheterization which showed total occlusion of the stent with thrombus, underwent deployment of 2 stents overlapping Xience Alpine 3.018 mm and 2.75 x 15 extended proximally to 3.25 and at the overlap area to 3.1 and distally 3.0. Excellent results, patient felt better immediately, continue on aspirin and Brilinta. Hypertension, cannot tolerate beta isabela secondary to bradycardia, continue to monitor blood pressure Hyperlipidemia, hypertriglyceridemia, maintained on Lipitor 80 mg daily and fish oil. Continue to monitor Diabetes mellitus, followed and managed by primary care physician Hypomagnesemia, replace magnesium and monitor electrolytes Clinical Quality Measures AMI/AHF: ASA po Prior to arrival: Yes DVT/VTE Risk/Contraindication: Risk Factor Score Per Nursin RFS Level Per Nursing on Admit: 4+=Very High Contraindications-Pharm: Other *list below* MARCELINO CADENA MD Oct 26, 2016 11:42
--- NOTE | 2016-10-26 11:45 | Discharge Summary-Hospitalist ---
Diagnosis/Chief Complaint Date of Admission Oct 25, 2016 at 02:35 Date of Discharge Discharge Date: Oct 26, 2016 Discharge Diagnosis Assessment: Chest pain of uncertain etiology ruled out cardiac causes by Dr. Mireles cardiology Acute gout ankle left Hypertension Hyperlipidemia maintained on statin therapy CAD previous stents placed HTN Discharge Summary Discharge Physical Examination Allergies: Coded Allergies: No Known Drug Allergies (Unverified , 05/16/13) Vitals & I&Os Vital Signs Date Time Temp Pulse Resp B/P (MAP) Pulse Ox O2 Delivery O2 Flow Rate FiO2 10/26/16 08:00 97.6 60 18 111/64 97 Room Air Hospital Course Hospital course: Patient had an uneventful hospital course and observation. He was admitted for chest pain so Dr. Mireles was consulted due to prior CAD intervention and it was evaluated to be noncardiac in source. Prednisone improved presumed gout of left ankle quickly and overall he improved and wanted discharge with close f/u. He was able to ambulate w/o diff. Labs (last 24 hrs) Laboratory Tests 10/25/16 16:19: Glucometer 406*H 10/25/16 21:47: Glucometer 256H 10/26/16 05:40: Glucometer 260H 10/26/16 05:54: White Blood Count 10.9, Red Blood Count 4.47, Hemoglobin 11.2L, Hematocrit 33L, Mean Corpuscular Volume 75L, Mean Corpuscular Hemoglobin 25, Mean Corpuscular Hemoglobin Concent 34, Red Cell Distribution Width 16.6H, Platelet Count 427H, Mean Platelet Volume 9.7, Erythrocyte Sedimentation Rate 26 10/26/16 05:59: Sodium Level 134L, Potassium Level 4.3, Chloride Level 102, Carbon Dioxide Level 23, Anion Gap 9, Blood Urea Nitrogen 21H, Creatinine 1.22, Estimat Glomerular Filtration Rate 59, BUN/Creatinine Ratio 17, Glucose Level 280H, Calcium Level 9.7, Magnesium Level 1.8, Total Bilirubin 0.5, Aspartate Amino Transf (AST/SGOT) 11, Alanine Aminotransferase (ALT/SGPT) 16, Alkaline Phosphatase 83, Total Protein 6.7, Albumin 3.7 10/26/16 11:16: Glucometer 314H Pending Labs Laboratory Tests 10/26/16 05:40: Glucometer 260 10/26/16 05:54: White Blood Count 10.9, Red Blood Count 4.47, Hemoglobin 11.2, Hematocrit 33, Mean Corpuscular Volume 75, Mean Corpuscular Hemoglobin 25, Mean Corpuscular Hemoglobin Concent 34, Red Cell Distribution Width 16.6, Platelet Count 427, Mean Platelet Volume 9.7, Erythrocyte Sedimentation Rate 26 10/26/16 05:59: Sodium Level 134, Potassium Level 4.3, Chloride Level 102, Carbon Dioxide Level 23, Anion Gap 9, Blood Urea Nitrogen 21, Creatinine 1.22, Estimat Glomerular Filtration Rate 59, BUN/Creatinine Ratio 17, Glucose Level 280, Calcium Level 9.7, Magnesium Level 1.8, Total Bilirubin 0.5, Aspartate Amino Transf (AST/SGOT ) 11, Alanine Aminotransferase (ALT/SGPT) 16, Alkaline Phosphatase 83, Total Protein 6.7, Albumin 3.7 10/26/16 11:16: Glucometer 314 Discharge Home Medications: Active Scripts Active Hydrocodon -Acetaminophen 5-325 (Hydrocodone/Acetaminophen) 1 Each Tablet 1 Each PO BID PRN Prednisone 10 Mg Tab.ds.pk 10 Mg PO DAILY Reported Brilinta (Ticagrelor) 90 Mg Tablet 90 Mg PO BID Atorvastatin Calcium 80 Mg Tablet 80 Mg PO HS Fish Oil 1,000 mg Capsule ([place] 3 Polyunsat Fatty Acids) 1,000 Mg Cap 1,000 Mg PO BID Metformin HCl 500 Mg Tablet 1,000 Mg PO BID TAKES 2 (500MG) TABLETS Prilosec Otc (Omeprazole Magnesium) 20 Mg Tablet.dr 20 Mg PO DAILY PRN One Daily For Men 50+ Adv Tab (Mv,Minerals/FA/Lycopene/Ginkgo) 1 Each Tablet 1 Tab PO DAILY Aspirin EC (Aspirin) 81 Mg Tablet.dr 81 Mg PO DAILY Lisinopril 10 Mg Tablet 10 Mg PO DAILY Glimepiride 2 Mg Tablet 2 Mg PO DAILY Instructions to patient/family Please see electronic discharge instructions given to patient. Clinical Quality Measures AMI/AHF: ASA po Prior to arrival: Yes DVT/VTE Risk/Contraindication: Risk Factor Score Per Nursin RFS Level Per Nursing on Admit: 4+=Very High Contraindications-Pharm: Other *list below* ORA ART DO Oct 26, 2016 11:45
== END 2016-10-26 11:40 | disposition home or self-care (01) ==
LOC: EDUNIT# 00:47 → ER 00:49 → 4TH 02:35 → UNDOADMOB 02:35 → 4TH 03:15 → UNDODISOB 10-26 12:15
PROVIDERS: ADMIT Family Medicine; ATTEND Family Medicine
DX: R07.9 Chest pain, unspecified (principal); M10.072 Idiopathic gout, left ankle and foot; I25.10 Atherosclerotic heart disease of native coronary artery without angina pectoris; I10 Essential (primary) hypertension; E78.5 Hyperlipidemia, unspecified; I44.0 Atrioventricular block, first degree; I25.2 Old myocardial infarction; Z79.82 Long term (current) use of aspirin; Z79.84 Long term (current) use of oral hypoglycemic drugs; Z79.899 Other long term (current) drug therapy; Z95.5 Presence of coronary angioplasty implant and graft
CPT/HCPCS: 36415; 71010; 73610; 80048; 80053; 82550; 82962; 83735; 83874; 84484; 85025; 85027; 85610; 85652; 85730; 93005; 96374; 96375; G0378

== ENCOUNTER 2016-11-15 10:35 | Outpatient (RCR) | payer MEDICARE, OTHER ==
[~2016-11-15 10:35] MED LIST changes: +HYDR-3812 PO; +PRED10TA22 PO
== END 2016-11-16 | disposition home or self-care (01) ==
LOC: CR 10:35
PROVIDERS: ATTEND Internal Medicine Cardiovascular Disease
DX: Z95.5 Presence of coronary angioplasty implant and graft; Z48.812 Encounter for surgical aftercare following surgery on the circulatory system
CPT/HCPCS: 93798

== ENCOUNTER 2016-11-16 19:22 | Emergency (ER) | payer MEDICARE, OTHER ==
[~2016-11-16] VITALS: Ht 185.4 cm; Wt 83.9 kg
[2016-11-16] MEDS ORDERED: ACETAMINOPHEN 325 MG TABLET/CAPLET (TYLENOL) PO STA (20:04)
--- NOTE | 2016-11-16 20:14 | ED Lower Extremity ---
General Chief Complaint: Lower Extremity Stated Complaint: L KNEE SWELLING SINCE FRIDAY Nursing Triage Note: PT TO ED 5 W/ FOR C/O LT KNEE PAIN ONSET FRIDAY AM THAT WOKE HIM FROM SLEEP. DENIES INJURY. MINIMAL SWELLING NOTED TO KNEE Nursing Sepsis Screen: No Definite Risk History of Present Illness Time seen by provider: 19:50 Initial Comments Patient reports new onset of anterior left knee pain. He denies any injury. He is recently started cardiac rehabilitation. He has not taken any medication. He has had gout in the past month mainly affecting his left ankle, he is not currently on any treatment for gout. Onset: yesterday Severity: mild Pain/Injury Location: left knee Method of Injury: unknown Modifying Factors: Improves With Rest, Improves With Other (flexion of the left knee) Allergies and Home Medications Allergies Coded Allergies: No Known Drug Allergies (Unverified , 05/16/13) Home Medications Aspirin 81 Mg Tablet.dr, 81 MG PO DAILY, (Reported) Atorvastatin Calcium 80 Mg Tablet, 80 MG PO HS, (Reported) Glimepiride 2 Mg Tablet, 2 MG PO DAILY, (Reported) Hydrocodone/Acetaminophen 1 Each Tablet, 1 EACH PO BID PRN for PAIN, #10 Prescribed by: ORA ART on 10/26/16 1140 Lisinopril 10 Mg Tablet, 10 MG PO DAILY, (Reported) Metformin HCl 500 Mg Tablet, 1,000 MG PO BID, (Reported) TAKES 2 (500MG) TABLETS Mv,Minerals/FA/Lycopene/Ginkgo 1 Each Tablet, 1 TAB PO DAILY, (Reported) Benge 3 Polyunsat Fatty Acids 1,000 Mg Cap, 1,000 MG PO BID, (Reported) Omeprazole Magnesium 20 Mg Tablet.dr, 20 MG PO DAILY PRN for HEARTBURN, ( Reported) Prednisone 10 Mg Tab.ds.pk, 10 MG PO DAILY, #5 Prescribed by: ORA ART on 10/26/16 1140 Ticagrelor 90 Mg Tablet, 90 MG PO BID, (Reported) Constitutional: no symptoms reported, see HPI Musculoskeletal: see HPI, joint pain (left knee) All Other Systems Reviewed Negative Unless Noted: Yes Past Fqqzoqn-Rfjyxl-Vzhihi Hx Patient Social History Alcohol Use: Denies Use Recreational Drug Use: No Smoking Status: Never a Smoker 2nd Hand Smoke Exposure: No Recent Foreign Travel: No Contact w/Someone Who Travel: No Recent Infectious Disease Expo: No Recent Hopitalizations: Yes (HEART CATH) Physical Abuse: No Sexual Abuse: No Mistreated: No Fear: No Immunizations Up To Date Tetanus Booster (TDap): Unknown PED Vaccines UTD: Yes Date of Pneumonia Vaccine: Mar 15, 2013 Date of Influenza Vaccine: Feb 17, 2015 Seasonal Allergies Seasonal Allergies: No Surgeries History of Surgeries: Yes (CATARACTS, EYELID TUCK, ) Surgeries: Coronary Stent, Eye Surgery, Testicular Respiratory History of Respiratory Disorde: No Currently Using CPAP: No Currently Using BIPAP: No Cardiovascular History of Cardiac Disorders: Yes (STENT PLACEMENT X3) Cardiac Disorders: Heart Attack, High Cholesterol, Hypertension Neurological History of Neurological Disord: No Reproductive System Sexually Transmitted Disease: No HIV/AIDS: No Genitourinary History of Genitourinary Disor: No Gastrointestinal History of Gastrointestinal Di: No Musculoskeletal History of Musculoskeletal Dis: Yes Musculoskeletal Disorders: Gout Endocrine History of Endocrine Disorders: Yes Endocrine Disorders: Diabetes, Non-Insulin dep HEENT History of HEENT Disorders: Yes HEENT Disorders: Cataract Cancer History of Cancer: No Psychosocial History of Psychiatric Problem: No Suicide Risk Score: 0 Integumentary History of Skin or Integumenta: No Blood Transfusions History of Blood Disorders: No Adverse Reaction to a Blood Tr: No Reviewed Nursing Assessment Reviewed/Agree w Nursing PMH: Yes Family Medical History Family Medial History: Cataract 19 FATHER Chest pain 19 MOTHER Dementia 19 MOTHER Family history: Alzheimer's disease 19 MOTHER Family history: Arthritis 19 MOTHER Family history: Diabetes mellitus 19 MOTHER Family history: Hypertension 19 FATHER 19 MOTHER G8 SISTER Headache Hypercholesterolemia 19 FATHER 19 MOTHER G8 SISTER Kidney disease 19 FATHER Prostate cancer 19 FATHER Stroke 19 FATHER Visual impairment 19 MOTHER G8 BROTHER G8 BROTHER G8 SISTER No Family History of: Abdominal aortic aneurysm Michael's disease Alcoholism Aphasia Cancer Cancer of colon Congenital heart disease Congestive heart failure Cystic fibrosis Dysphagia Family history: Allergy Family history: Asthma Family history: Breast disease Family history: Cardiovascular disease Family history: Coronary thrombosis Family history: Gastrointestinal disease Family history: Glaucoma Family history: Osteoporosis Family history: Thyroid disorder Hearing loss Heart disease Hereditary disease History of - anemia History of - disorder History of - respiratory disease History of drug abuse Human immunodeficiency virus (HIV) seropositivity Infertile Malignant neoplasm of lung Myocardial infarction Parkinson's disease Psychotic disorder Seizure disorder Tuberculosis Physical Exam Vital Signs Vital Sign - Last 12Hours 11/16/16 19:37 Temp 98.0 Pulse 59 Resp 20 B/P (MAP) 146/87 Pulse Ox 99 O2 Delivery Room Air Capillary Refill : Less Than 3 Seconds General Appearance: WD/WN, no apparent distress Neck: non-tender, full range of motion, supple Cardiovascular: normal peripheral pulses, regular rate, rhythm, no murmur Respiratory: chest non-tender, lungs clear, normal breath sounds Gastrointestinal: normal bowel sounds, non tender, soft Knees: left knee normal inspection, left knee normal range of motion, left knee bone tenderness (anterior distal patella), left knee pain, left knee soft tissue tenderness, left knee other (negative Homans left lower extremity. Negative Lockman, anterior drawer and posterior drawer. Pain with compression of the patella. Trace effusion noted) Ankles: bilateral ankle normal inspection, bilateral ankle normal range of motion, bilateral ankle no evidence of injury Neurologic/Tendon: normal sensation, normal motor functions, normal tendon functions Neurologic/Psychiatric: no motor/sensory deficits, alert, normal mood/affect, oriented x 3 Skin: normal color, warm/dry Lymphatic: no adenopathy Progress/Results/Core Measures Results/Orders My Orders Orders - SUKHWINDER STEVENSON Knee, Left, 3 Views (11/16/16 20:04) Acetaminophen Tablet/Caplet (Tylenol T (11/16/16 20:04) Vital Signs/I&O Vital Sign - Last 12Hours 11/16/16 19:37 Temp 98.0 Pulse 59 Resp 20 B/P (MAP) 146/87 Pulse Ox 99 O2 Delivery Room Air Blood Pressure Mean: 106 Progress Note : Time: 19:50 Progress Note Initial evaluation completed, recommended x-rays of the left knee and Tylenol 650 mg by mouth. 2030 reviewed x-ray results with the patient, he states he is feeling slightly better since Tylenol and a warm compression to his knee. Discussed using a cane in his right hand for ambulation when the knee is bothering him. If he continues to have symptoms he will follow-up with Dr. Douglass and seek referral for orthopedics. Diagnostic Imaging Diagonstic Imaging: Xray Plain Films/CT/US/NM/MRI: knee Comments NAME: [facility] REC#: [id number] PT STATUS: REG ER : 1950 PHYSICIAN: SUKHWINDER STEVENSON ADMIT DATE: 11/16/16/ER Draft Date of Exam:11/16/16 KNEE, LEFT, 3 VIEWS INDICATION: Left knee pain, swelling COMPARISON: None FINDINGS: 3 views of the left knee demonstrate mild degenerative joint disease in all 3 compartments. There is small suprapatellar joint effusion. There is no fracture or dislocation. IMPRESSION: Degenerative changes without fracture. Dictated on workstation # [id number] Dict: 11/16/162017 Trans: 11/16/162023 [facility] [id number] Interpreted by: RU CLEMENTS Electronically signed by: Reviewed: Reviewed by Me Departure Impression Impression: Primary Impression: Patellofemoral arthritis of left knee Disposition: 01 HOME, SELF-CARE Condition: Improved Departure-Patient Inst. Decision time for Depature: 20:30 Referrals: AUGIE DOUGLASS DO (PCP/Family) Primary Care Physician Patient Instructions: Knee Pain (DC) Add. Discharge Instructions: Ru wrap for knee sleeve as needed for the left knee. Alternate heat or ice to the knee every 2 hours as needed. Use cane in the right hand for ambulation. Tylenol 650 mg every 6 hours as needed for knee pain. Return to emergency department for increased pain, fever greater than 101, or new problems. All discharge instructions reviewed with patient and/or family. Voiced understanding. Copy Copies To 1: AUGIE DOUGLASS AMY ARNP Nov 16, 2016 20:14
--- NOTE | 2016-11-16 20:24 | Diagnostic Imaging Report ---
INDICATION: Left knee pain, swelling COMPARISON: None FINDINGS: 3 views of the left knee demonstrate mild degenerative joint disease in all 3 compartments. There is small suprapatellar joint effusion. There is no fracture or dislocation. IMPRESSION: Degenerative changes without fracture. Dictated by: Dictated on workstation # [id number]
[2016-11-16 20:48] VITALS: BP 0/0
== END 2016-11-16 20:48 | disposition home or self-care (01) ==
LOC: EDUNIT# 19:22 → ER 19:23
DX: M13.862 Other specified arthritis, left knee (principal); I25.2 Old myocardial infarction; E78.00 Pure hypercholesterolemia, unspecified; I10 Essential (primary) hypertension; E11.9 Type 2 diabetes mellitus without complications; M10.9 Gout, unspecified; Z79.82 Long term (current) use of aspirin; Z79.84 Long term (current) use of oral hypoglycemic drugs; Z95.5 Presence of coronary angioplasty implant and graft
CPT/HCPCS: 73562; 99283

== ENCOUNTER 2016-12-02 16:39 | Emergency (ER) | payer MEDICARE, OTHER ==
[~2016-12-02] VITALS: Ht 182.9 cm; Wt 86.2 kg
[2016-12-02] MEDS ORDERED: NITROGLYCERIN 0.4 MG SL TABS BTL 25'S SL PRN (17:00)
[2016-12-02] MEDS ORDERED: ASPIRIN 81 MG CHEW (CHILDREN'S ASA) PO ONE (17:00)
[2016-12-02 17:01] LABS: BASOPHILS % (AUTO) 1 % (0-10); EOSINOPHILS # (AUTO) 0.1 10^3/uL (0.0-0.3); EOSINOPHILS % (AUTO) 2 % (0-10); LYMPHOCYTES # (AUTO) 1.9 X 10^3 (1.0-4.0); LYMPHOCYTES % (AUTO) 26 % (12-44); MEAN CORPUSCULAR HEMOGLOBIN 25 PG (25-34); MEAN CORPUSCULAR HGB CONC 33 G/DL (32-36); MEAN CORPUSCULAR VOLUME 77 FL (80-99); MEAN PLATELET VOLUME 9.8 FL (7.4-10.4); MONOCYTES # (AUTO) 0.7 X 10^3 (0.0-1.0); MONOCYTES % (AUTO) 9 % (0-12); NEUTROPHILS # (AUTO) 4.6 X 10^3 (1.8-7.8); NEUTROPHILS % (AUTO) 63 % (42-75); PLATELET COUNT 333 10^3/uL (130-400); RED BLOOD COUNT 4.57 10^6/uL (4.35-5.85); RED CELL DISTRIBUTION WIDTH 16.5 % (10.0-14.5); WHITE BLOOD COUNT 7.3 10^3/uL (4.3-11.0)
[2016-12-02 17:11] LABS: INR 0.9 (0.8-1.4); PROTHROMBIN TIME PATIENT 12.7 SEC (12.2-14.7)
[2016-12-02 17:21] LABS: ANION GAP 10 MMOL/L (5-14); BLOOD UREA NITROGEN 12 MG/DL (7-18); BUN/CREATININE RATIO 8; CARBON DIOXIDE 24 MMOL/L (21-32); CHLORIDE 103 MMOL/L (98-107); CREATININE SERUM 1.54 MG/DL (0.60-1.30); POTASSIUM 3.8 MMOL/L (3.6-5.0); SODIUM 137 MMOL/L (135-145)
[2016-12-02 17:22] LABS: ALANINE AMINOTRANSFERASE 25 U/L (0-55); ALBUMIN 4.1 GM/DL (3.2-4.5); ASPARTATE AMINO TRANSFERASE 15 U/L (5-34); BILIRUBIN,TOTAL 0.4 MG/DL (0.1-1.0); CALCIUM 8.9 MG/DL (8.5-10.1); GFR ESTIMATED 45; GLUCOSE 185 MG/DL (70-105); MAGNESIUM 1.3 MG/DL (1.8-2.4); TOTAL PROTEIN 7.1 GM/DL (6.4-8.2)
[2016-12-02] MEDS ORDERED: NS IV 1000 ML 1,000 ML IV ONE (17:44)
[2016-12-02] MEDS ORDERED: MAGNESIUM 1 GM/100 ML IVPB 100 ML IV ONE (17:45)
--- NOTE | 2016-12-02 17:48 | Diagnostic Imaging Report ---
CLINICAL INDICATION: Patient with chest pain on upper left side started this morning. EXAM: Portable chest x-ray upright view. COMPARISONS: Chest x-ray dated 10/25/2016. FINDINGS: Lungs/pleura: Lungs are clear. There is no pneumothorax. There is no pleural effusion. Mediastinum: Unremarkable. Pulmonary vasculature: Unremarkable. Heart: Unremarkable. Bones/extrathoracic soft tissue: Again seen pseudoarticulation or chronic subacute fracture involving the posterolateral aspect of left first rib. IMPRESSION: 1: Stable chest x-ray exam with no interval radiographic evidence of acute cardiopulmonary process. 2: Again seen bony pseudoarticulation or chronic fracture involving the posterolateral aspect of the left first rib. Dictated by: Dictated on workstation # [id number]
--- NOTE | 2016-12-02 18:37 | ED Chest Pain ---
General Chief Complaint: Chest Pain Stated Complaint: L SIDE CHEST PAIN Nursing Triage Note: pt reports cp starting this am. pt states pain l sided and intermittent. rates it a 3/10. Nursing Sepsis Screen: No Definite Risk Source: patient Exam Limitations: no limitations (NARENDRA MONAHAN MD) History of Present Illness Time seen by provider: 16:43 Initial Comments This 66-year-old gentleman presents to the emergency room with complaints of left-sided intermittent sharp chest pain rated as 3/10.. Started at about 09: 00. He denies any associated symptoms such as nausea, lightheadedness, shortness of breath, etc. He presently takes Brilinta and aspirin and states good compliance. Patient has a history of stent occlusion with STEMI in September. He underwent cardiac catheterization with thrombectomy and placement of 2 stents within the LAD. He has since had an observation admission in October that involved a chest pain evaluation and rule out. Patient was deferred year by his primary care provider Dr. Douglass. (NARENDRA MONAHAN MD) Allergies and Home Medications Allergies Coded Allergies: No Known Drug Allergies (Unverified , 05/16/13) Home Medications Aspirin 81 Mg Tablet.dr, 81 MG PO DAILY, (Reported) Atorvastatin Calcium 80 Mg Tablet, 80 MG PO HS, (Reported) Glimepiride 2 Mg Tablet, 2 MG PO DAILY, (Reported) Hydrocodone/Acetaminophen 1 Each Tablet, 1 EACH PO BID PRN for PAIN, #10 Prescribed by: ORA ART on 10/26/16 1140 Lisinopril 10 Mg Tablet, 10 MG PO DAILY, (Reported) Magnesium Oxide 400 Mg Tablet, 400 MG PO DAILY, #30 Prescribed by: NARENDRA BALLARD on 12/02/16 1842 Metformin HCl 500 Mg Tablet, 1,000 MG PO BID, (Reported) TAKES 2 (500MG) TABLETS Mv,Minerals/FA/Lycopene/Ginkgo 1 Each Tablet, 1 TAB PO DAILY, (Reported) [place] 3 Polyunsat Fatty Acids 1,000 Mg Cap, 1,000 MG PO BID, (Reported) Omeprazole Magnesium 20 Mg Tablet.dr, 20 MG PO DAILY PRN for HEARTBURN, ( Reported) Prednisone 10 Mg Tab.ds.pk, 10 MG PO DAILY, #5 Prescribed by: ORA ART on 10/26/16 1140 Ticagrelor 90 Mg Tablet, 90 MG PO BID, (Reported) Review of Systems Constitutional: no symptoms reported EENTM: No Symptoms Reported Respiratory: No Symptoms Reported Cardiovascular: See HPI Gastrointestinal: No Symptoms Reported Genitourinary: No Symptoms Reported Musculoskeletal: no symptoms reported Skin: no symptoms reported Psychiatric/Neurological: No Symptoms Reported Endocrine: No Symptoms Reported Hematologic/Lymphatic: No Symptoms Reported (NARENDRA MONAHAN MD) Past Svqgigf-Cmvpbc-Bnqrzq Hx Patient Social History Alcohol Use: Denies Use Recreational Drug Use: No Smoking Status: Never a Smoker 2nd Hand Smoke Exposure: No Recent Foreign Travel: No Contact w/Someone Who Travel: No Recent Infectious Disease Expo: No Recent Hopitalizations: Yes (HEART CATH) Physical Abuse: No Sexual Abuse: No Mistreated: No Fear: No (NARENDRA MONAHAN MD) Immunizations Up To Date Tetanus Booster (TDap): Unknown PED Vaccines UTD: Yes Date of Pneumonia Vaccine: Mar 15, 2013 Date of Influenza Vaccine: Feb 17, 2015 (NARENDRA MONAHAN MD) Seasonal Allergies Seasonal Allergies: No (NARENDRA MONAHAN MD) Surgeries History of Surgeries: Yes (CATARACTS, EYELID TUCK, ) Surgeries: Coronary Stent, Eye Surgery, Testicular (NARENDRA MONAHAN MD) Respiratory History of Respiratory Disorde: No Currently Using CPAP: No Currently Using BIPAP: No (NARENDRA MONAHAN MD) Cardiovascular History of Cardiac Disorders: Yes (STENT PLACEMENT X3) Cardiac Disorders: Coronary Artery Disease, Heart Attack, High Cholesterol, Hypertension (NARENDRA MONAHAN MD) Neurological History of Neurological Disord: No (NARENDRA MONAHAN MD) Reproductive System Sexually Transmitted Disease: No HIV/AIDS: No (NARENDRA MONAHAN MD) Genitourinary History of Genitourinary Disor: No (NARENDRA MONAHAN MD) Gastrointestinal History of Gastrointestinal Di: No (NARENDRA MONAHAN MD) Musculoskeletal History of Musculoskeletal Dis: Yes Musculoskeletal Disorders: Gout (NARENDRA MONAHAN MD) Endocrine History of Endocrine Disorders: Yes Endocrine Disorders: Diabetes, Non-Insulin dep (NARENDRA MONAHAN MD) HEENT History of HEENT Disorders: Yes HEENT Disorders: Cataract (NARENDRA MONAHAN MD) Cancer History of Cancer: No (NARENDRA MOANHAN MD) Psychosocial History of Psychiatric Problem: No Suicide Risk Score: 0 (NARENDRA MONAHAN MD) Integumentary History of Skin or Integumenta: No (NARENDRA MONAHAN MD) Blood Transfusions History of Blood Disorders: No Adverse Reaction to a Blood Tr: No (NARENDRA MONAHAN MD) Family Medical History Family Medial History: Cataract 19 FATHER Chest pain 19 MOTHER Dementia 19 MOTHER Family history: Alzheimer's disease 19 MOTHER Family history: Arthritis 19 MOTHER Family history: Diabetes mellitus 19 MOTHER Family history: Hypertension 19 FATHER 19 MOTHER G8 SISTER Headache Hypercholesterolemia 19 FATHER 19 MOTHER G8 SISTER Kidney disease 19 FATHER Prostate cancer 19 FATHER Stroke 19 FATHER Visual impairment 19 MOTHER G8 BROTHER G8 BROTHER G8 SISTER No Family History of: Abdominal aortic aneurysm Bond's disease Alcoholism Aphasia Cancer Cancer of colon Congenital heart disease Congestive heart failure Cystic fibrosis Dysphagia Family history: Allergy Family history: Asthma Family history: Breast disease Family history: Cardiovascular disease Family history: Coronary thrombosis Family history: Gastrointestinal disease Family history: Glaucoma Family history: Osteoporosis Family history: Thyroid disorder Hearing loss Heart disease Hereditary disease History of - anemia History of - disorder History of - respiratory disease History of drug abuse Human immunodeficiency virus (HIV) seropositivity Infertile Malignant neoplasm of lung Myocardial infarction Parkinson's disease Psychotic disorder Seizure disorder Tuberculosis (NARENDRA MONAHAN MD) Family Medial History: Cataract 19 FATHER Chest pain 19 MOTHER Dementia 19 MOTHER Family history: Alzheimer's disease 19 MOTHER Family history: Arthritis 19 MOTHER Family history: Diabetes mellitus 19 MOTHER Family history: Hypertension 19 FATHER 19 MOTHER G8 SISTER Headache Hypercholesterolemia 19 FATHER 19 MOTHER G8 SISTER Kidney disease 19 FATHER Prostate cancer 19 FATHER Stroke 19 FATHER Visual impairment 19 MOTHER G8 BROTHER G8 BROTHER G8 SISTER No Family History of: Abdominal aortic aneurysm Bond's disease Alcoholism Aphasia Cancer Cancer of colon Congenital heart disease Congestive heart failure Cystic fibrosis Dysphagia Family history: Allergy Family history: Asthma Family history: Breast disease Family history: Cardiovascular disease Family history: Coronary thrombosis Family history: Gastrointestinal disease Family history: Glaucoma Family history: Osteoporosis Family history: Thyroid disorder Hearing loss Heart disease Hereditary disease History of - anemia History of - disorder History of - respiratory disease History of drug abuse Human immunodeficiency virus (HIV) seropositivity Infertile Malignant neoplasm of lung Myocardial infarction Parkinson's disease Psychotic disorder Seizure disorder Tuberculosis (ENRRIQUE CARMONA) Physical Exam Vital Signs Vital Sign - Last 12Hours 12/02/16 17:00 Temp 98.0 Pulse 61 Resp 20 B/P (MAP) 128/75 Pulse Ox 96 O2 Delivery Room Air (ENRRIQUE CARMONA) Vital Signs Capillary Refill : Less Than 3 Seconds (NARENDRA MONAHAN MD) General Appearance: No Apparent Distress, WD/WN HEENT: PERRL/EOMI, Normal ENT Inspection Neck: Normal Inspection Respiratory: Chest Non Tender, Lungs Clear, Normal Breath Sounds, No Accessory Muscle Use, No Respiratory Distress Cardiovascular: Regular Rate, Rhythm, No Edema, No Murmur, Normal Peripheral Pulses Gastrointestinal: Normal Bowel Sounds, Non Tender, Soft Extremity: Normal Inspection, Non Tender, No Calf Tenderness, No Pedal Edema, Other (negative Tony) Neurologic/Psychiatric: Alert, Oriented x3, No Motor/Sensory Deficits, Normal Mood/Affect, 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 Norm as Tested Skin: Normal Color, Warm/Dry (NARENDRA MONAHAN MD) Progress/Results/Core Measures Results/Orders Lab Results Laboratory Tests Test 12/02/16 16:55 12/02/16 21:13 Range/Units White Blood Count 7.3 4.3-11.0 10^3/uL Red Blood Count 4.57 4.35-5.85 10^6/uL Hemoglobin 11.4 L 13.3-17.7 G/DL Hematocrit 35 L 40-54 % Mean Corpuscular Volume 77 L 80-99 FL Mean Corpuscular Hemoglobin 25 25-34 PG Mean Corpuscular Hemoglobin Concent 33 32-36 G/DL Red Cell Distribution Width 16.5 H 10.0-14.5 % Platelet Count 333 130-400 10^3/uL Mean Platelet Volume 9.8 7.4-10.4 FL Neutrophils (%) (Auto) 63 42-75 % Lymphocytes (%) (Auto) 26 12-44 % Monocytes (%) (Auto) 9 0-12 % Eosinophils (%) (Auto) 2 0-10 % Basophils (%) (Auto) 1 0-10 % Neutrophils # (Auto) 4.6 1.8-7.8 X 10^3 Lymphocytes # (Auto) 1.9 1.0-4.0 X 10^3 Monocytes # (Auto) 0.7 0.0-1.0 X 10^3 Eosinophils # (Auto) 0.1 0.0-0.3 10^3/uL Basophils # (Auto) 0.0 0.0-0.1 10^3/uL Prothrombin Time 12.7 12.2-14.7 SEC INR Comment 0.9 0.8-1.4 Activated Partial Thromboplast Time 27 24-35 SEC Sodium Level 137 135-145 MMOL/L Potassium Level 3.8 3.6-5.0 MMOL/L Chloride Level 103 98-107 MMOL/L Carbon Dioxide Level 24 21-32 MMOL/L Anion Gap 10 5-14 MMOL/L Blood Urea Nitrogen 12 7-18 MG/DL Creatinine 1.54 H 0.60-1.30 MG/DL Estimat Glomerular Filtration Rate 45 BUN/Creatinine Ratio 8 Glucose Level 185 H 70-105 MG/DL Calcium Level 8.9 8.5-10.1 MG/DL Magnesium Level 1.3 L 1.8-2.4 MG/DL Total Bilirubin 0.4 0.1-1.0 MG/DL Aspartate Amino Transf (AST/SGOT) 15 5-34 U/L Alanine Aminotransferase (ALT/SGPT) 25 0-55 U/L Alkaline Phosphatase 90 40-136 U/L Myoglobin 43.0 10.0-92.0 NG/ML Troponin I < 0.30 < 0.30 <0.30 NG/ML Total Protein 7.1 6.4-8.2 GM/DL Albumin 4.1 3.2-4.5 GM/DL (ENRRIQUE CARMONA) Medications Given in ED Current Medications Medications Dose Ordered Sig/[place] Route Start Time Stop Time Status Last Admin Dose Admin Aspirin 243 mg ONCE ONCE PO 12/02/16 17:00 12/02/16 17:01 DC 12/02/16 17:13 243 MG Magnesium Sulfate/ Dextrose 100 ml @ 100 mls/hr ONCE ONCE IV 12/02/16 17:45 12/02/16 18:44 DC 12/02/16 18:37 100 MLS/HR Nitroglycerin 0.4 mg UD PRN SL 12/02/16 17:00 12/02/16 17:13 0.4 MG Sodium Chloride 1,000 ml @ 0 mls/hr Q0M ONCE IV 12/02/16 17:44 12/02/16 17:45 DC 12/02/16 18:38 0 MLS/HR (ENRRIQUE CARMONA) Vital Signs/I&O Vital Sign - Last 12Hours 12/02/16 12/02/16 17:00 17:00 Temp 98.0 Pulse 61 Resp 20 B/P (MAP) 128/75 Pulse Ox 96 O2 Delivery Room Air Room Air (ENRRIQUE CARMONA) Blood Pressure Mean: 92 Progress Note : Time: 18:38 Progress Note Care of this patient is being transferred to Dr. Carmona at this time. Patient status is unchanged. He is still occasionally having some twinges of pain in the left chest that are fairly mild in nature. Case was discussed with Dr. Vidal who agrees that a 4 hour cardiac rule out is a reasonable course of action. He also recommends prompt follow-up with Dr. Mireles in the office tomorrow. Patient has a bump in his creatinine. He is receiving a liter of IV fluids. He is also receiving a gram of magnesium. I will prescribed some oral magnesium replacement as a review of his magnesium trend shows he frequently has low potassium levels. (NARENDRA MONAHAN MD) Progress Note : Time: 20:05 Progress Note Assume care of the patient at 1900 hrs. Patient doing well laying in bed with some intermittent palpitations and chest pain about 3 out of 10. No shortness of breath now but he does daily catching his breath from time to time when the pain comes on he says. Denies any nausea or other discomfort. Reviewed the note and discussed the plan with the patient to obtain another troponin at 2100. Asked the patient to alert us if he starts having any more pain above a 5 in his chest. Patient plans to follow up outpatient tomorrow with his rehabilitation counselor. (ENRRIQUE CARMONA) ECG Initial ECG Impression Date: Dec 02, 2016 Initial ECG Impression Time: 16:47 Initial ECG Rate: 54 Initial ECG Rhythm: Normal Sinus Initial ECG Impression: Normal Comment Normal sinus rhythm with no ST elevation or depression. Minimal first-degree AV block. No axis deviation. (NARENDRA MONAHAN MD) EKG : EKG Time: 22:07 Rate: 57 Rhythm: Normal Sinus Intervals: HI (224 ms) ECG Comparisson: Unchanged ECG Impression: Nonspecific Changes (right bundle-branch block), 1st Degree AV Block Comment No T-wave elevation or depression seen. (ENRRIQUE CARMONA) Diagnostic Imaging Diagonstic Imaging: Xray Plain Films/CT/US/NM/MRI: chest Comments Chest x-ray viewed by me and report reviewed. See report below: NAME: MOSES SANDOVAL [facility] REC#: [id number] PT STATUS: REG ER : 1950 PHYSICIAN: NARENDRA MONAHAN MD ADMIT DATE: 12/02/16/ER Draft Date of Exam:12/02/16 CHEST 1 VIEW, AP/PA ONLY CLINICAL INDICATION: Patient with chest pain on upper left side started this morning. EXAM: Portable chest x-ray upright view. COMPARISONS: Chest x-ray dated 10/25/2016. FINDINGS: Lungs/pleura: Lungs are clear. There is no pneumothorax. There is no pleural effusion. Mediastinum: Unremarkable. Pulmonary vasculature: Unremarkable. Heart: Unremarkable. Bones/extrathoracic soft tissue: Again seen pseudoarticulation or chronic subacute fracture involving the posterolateral aspect of left first rib. IMPRESSION: 1: Stable chest x-ray exam with no interval radiographic evidence of acute cardiopulmonary process. 2: Again seen bony pseudoarticulation or chronic fracture involving the posterolateral aspect of the left first rib. Dictated on workstation # [id number] Dict: 12/02/161739 Trans: 12/02/161746 [facility] [id number] Interpreted by: KELSI SLATER MD (NARENDRA MONAHAN MD) Transfer of Care Transfer of Care Time: 20:05 Care transferred to: Kristine (ENRRIQUE CARMONA) Departure Impression Impression: Primary Impression: Atypical chest pain Additional Impressions: Coronary artery disease Qualified Codes: I25.10 - Atherosclerotic heart disease of [place] coronary artery without angina pectoris Renal insufficiency Hypomagnesemia Disposition: HOME, SELF-CARE Condition: Improved Departure-Patient Inst. Decision time for Depature: 22:19 (ENRRIQUE CARMONA) Referrals: AUGIE DOUGLASS DO (PCP/Family) Primary Care Physician Patient Instructions: Chest Pain (DC) Add. Discharge Instructions: Return to care if symptoms worsen. Drink plenty of water. Add magnesium supplement to your medications as prescribed. Follow-up with Dr. Mireles's office tomorrow morning. All discharge instructions reviewed with patient and/or family. Voiced understanding. Scripts Magnesium Oxide (Magnesium Oxide) 400 Mg Tablet 400 MG PO DAILY, #30 TAB Prov: NARENDRA MONAHAN MD 12/02/16 Copy Copies To 1: MARCELINO MIRELES MD, JOSHUA T MD Dec 02, 2016 18:37 ENRRIQUE CARMONA Dec 02, 2016 20:06
[2016-12-02] MEDS ORDERED: MAGN400T6 PO (18:42)
[2016-12-02 22:29] VITALS: BP 122/68
== END 2016-12-02 22:29 | disposition home or self-care (01) ==
LOC: EDUNIT# 16:39 → ER 16:41
DX: R07.89 Other chest pain (principal); I25.10 Atherosclerotic heart disease of native coronary artery without angina pectoris; E83.42 Hypomagnesemia; N28.9 Disorder of kidney and ureter, unspecified; I25.2 Old myocardial infarction; E78.00 Pure hypercholesterolemia, unspecified; I10 Essential (primary) hypertension; E11.9 Type 2 diabetes mellitus without complications; Z95.5 Presence of coronary angioplasty implant and graft; Z79.82 Long term (current) use of aspirin; Z82.49 Family history of ischemic heart disease and other diseases of the circulatory system; Z80.42 Family history of malignant neoplasm of prostate; Z79.84 Long term (current) use of oral hypoglycemic drugs
CPT/HCPCS: 36415; 71010; 80053; 83735; 83874; 84484; 85025; 85610; 85730; 93005; 93041

== ENCOUNTER 2016-12-30 13:32 | Outpatient (RCR) | payer MEDICARE, OTHER ==
[~2016-12-30 13:32] MED LIST changes: +ACHD5005 PO; -HYDR-3812 PO; +MAGN400T6 PO
[2017-01-13] MEDS ORDERED: EMPA25TA PO (15:32)
[2017-01-13] MEDS ORDERED: MAGN400T6 PO (15:38)
== END 2017-02-18 | disposition home or self-care (01) ==
LOC: CR 13:32
PROVIDERS: ATTEND Internal Medicine Cardiovascular Disease
DX: Z48.812 Encounter for surgical aftercare following surgery on the circulatory system (principal); Z95.5 Presence of coronary angioplasty implant and graft
CPT/HCPCS: 93798

== ENCOUNTER 2017-01-13 11:15 | Observation (INO) | payer MEDICARE, OTHER ==
[~2017-01-13] VITALS: Ht 185.4 cm; Wt 80.7 kg
[~2017-01-13 11:15] MED LIST changes: -ACHD5005 PO; +HYDR-3812 PO
[2017-01-13] MEDS ORDERED: ASPIRIN 81 MG CHEW (CHILDREN'S ASA) PO ONE (11:30)
[2017-01-13 11:31] LABS: BASOPHILS # (AUTO) 0.1 10^3/uL (0.0-0.1); BASOPHILS % (AUTO) 1 % (0-10); EOSINOPHILS # (AUTO) 0.2 10^3/uL (0.0-0.3); EOSINOPHILS % (AUTO) 2 % (0-10); LYMPHOCYTES # (AUTO) 1.8 X 10^3 (1.0-4.0); LYMPHOCYTES % (AUTO) 23 % (12-44); MEAN CORPUSCULAR HEMOGLOBIN 24 PG (25-34); MEAN CORPUSCULAR HGB CONC 32 G/DL (32-36); MEAN CORPUSCULAR VOLUME 75 FL (80-99); MEAN PLATELET VOLUME 9.8 FL (7.4-10.4); MONOCYTES # (AUTO) 0.4 X 10^3 (0.0-1.0); MONOCYTES % (AUTO) 5 % (0-12); NEUTROPHILS # (AUTO) 5.5 X 10^3 (1.8-7.8); NEUTROPHILS % (AUTO) 69 % (42-75); PLATELET COUNT 341 10^3/uL (130-400); RED BLOOD COUNT 4.86 10^6/uL (4.35-5.85); RED CELL DISTRIBUTION WIDTH 15.2 % (10.0-14.5)
[2017-01-13 11:38] LABS: INR 0.9 (0.8-1.4); PROTHROMBIN TIME PATIENT 12.2 SEC (12.2-14.7)
[2017-01-13 11:46] LABS: ALANINE AMINOTRANSFERASE 27 U/L (0-55); ALBUMIN 4.2 GM/DL (3.2-4.5); ANION GAP 10 MMOL/L (5-14); ASPARTATE AMINO TRANSFERASE 19 U/L (5-34); BILIRUBIN,TOTAL 0.5 MG/DL (0.1-1.0); BLOOD UREA NITROGEN 22 MG/DL (7-18); BUN/CREATININE RATIO 16; CALCIUM 10.1 MG/DL (8.5-10.1); CARBON DIOXIDE 24 MMOL/L (21-32); CHLORIDE 102 MMOL/L (98-107); CREATININE SERUM 1.36 MG/DL (0.60-1.30); GFR ESTIMATED 52; GLUCOSE 298 MG/DL (70-105); MAGNESIUM 1.5 MG/DL (1.8-2.4); POTASSIUM 4.5 MMOL/L (3.6-5.0); SODIUM 136 MMOL/L (135-145); TOTAL PROTEIN 7.6 GM/DL (6.4-8.2)
[2017-01-13 11:52] LABS: MYOGLOBIN SERUM 50.2 NG/ML (10.0-92.0)
[2017-01-13] MEDS ORDERED: NS IV 1000 ML 1,000 ML IV ONE (12:15)
--- NOTE | 2017-01-13 12:33 | ED Chest Pain ---
General Chief Complaint: Chest Pain Stated Complaint: CHEST DISCOMFORT,SOB,BLUE AROUND LIPS,DIEHL Nursing Triage Note: c/o intermittant chest pain since yesterday. Denies chest pain currently. Headache reported. Nursing Sepsis Screen: No Definite Risk Source: patient, old records Exam Limitations: no limitations History of Present Illness Time seen by provider: 11:22 Initial Comments This 66 year old gentleman with known CAD presents to the ER with complaint of intermittent chest pain and SOA for the past 2 days. He denies any chest pain at the time of assessment. He reports a pain in the central lower chest with deep inspiration. He denies any cough or fever. He reports good compliance with his aspirin and Brilinta. He reports perioral cyanosis during an episode of shortness of breath last night. He was also lightheaded. He reports his chest pain started again at 06:00 this morning and has been intermittent since then. He reports a general feeling of tightness around his neck. 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 Mireles in his primary care providers Dr. Douglass. Allergies and Home Medications Allergies Coded Allergies: No Known Drug Allergies (Unverified , 05/16/13) Home Medications Aspirin 81 Mg Tablet., 81 MG PO DAILY, (Reported) Atorvastatin Calcium 80 Mg Tablet, 80 MG PO HS, (Reported) Glimepiride 2 Mg Tablet, 2 MG PO DAILY, (Reported) Hydrocodone/Acetaminophen 1 Each Tablet, 1 EACH PO BID PRN for PAIN, #10 Prescribed by: ORA ART on 10/26/16 1140 Lisinopril 10 Mg Tablet, 10 MG PO DAILY, (Reported) Magnesium Oxide 400 Mg Tablet, 400 MG PO DAILY, #30 Prescribed by: NARENDRA BALLARD on 12/02/16 1842 Metformin HCl 500 Mg Tablet, 1,000 MG PO BID, (Reported) TAKES 2 (500MG) TABLETS Mv,Minerals/FA/Lycopene/Ginkgo 1 Each Tablet, 1 TAB PO DAILY, (Reported) [place] 3 Polyunsat Fatty Acids 1,000 Mg Cap, 1,000 MG PO BID, (Reported) Omeprazole Magnesium 20 Mg Tablet., 20 MG PO DAILY PRN for HEARTBURN, ( Reported) Prednisone 10 Mg Tab.ds.pk, 10 MG PO DAILY, #5 Prescribed by: ORA ART on 10/26/16 1140 Ticagrelor 90 Mg Tablet, 90 MG PO BID, (Reported) Review of Systems Constitutional: no symptoms reported EENTM: No Symptoms Reported Respiratory: See HPI Cardiovascular: See HPI Gastrointestinal: No Symptoms Reported Genitourinary: No Symptoms Reported Musculoskeletal: no symptoms reported Skin: no symptoms reported Psychiatric/Neurological: No Symptoms Reported Endocrine: No Symptoms Reported Hematologic/Lymphatic: No Symptoms Reported Past Whkjqjh-Weaoec-Lmstsi Hx Patient Social History Alcohol Use: Denies Use Recreational Drug Use: Yes Smoking Status: Never a Smoker 2nd Hand Smoke Exposure: No Recent Foreign Travel: No Contact w/Someone Who Travel: No Recent Infectious Disease Expo: No Recent Hopitalizations: Yes (HEART CATH) Immunizations Up To Date Tetanus Booster (TDap): Unknown PED Vaccines UTD: Yes Date of Pneumonia Vaccine: Mar 15, 2013 Date of Influenza Vaccine: Feb 17, 2015 Seasonal Allergies Seasonal Allergies: No Surgeries History of Surgeries: Yes (CATARACTS, EYELID TUCK, ) Surgeries: Coronary Stent, Eye Surgery, Testicular Respiratory History of Respiratory Disorde: No Currently Using CPAP: No Currently Using BIPAP: No Cardiovascular History of Cardiac Disorders: Yes (STENT PLACEMENT X3) Cardiac Disorders: Coronary Artery Disease, Heart Attack, High Cholesterol, Hypertension Neurological History of Neurological Disord: No Reproductive System Sexually Transmitted Disease: No HIV/AIDS: No Genitourinary History of Genitourinary Disor: No Gastrointestinal History of Gastrointestinal Di: No Musculoskeletal History of Musculoskeletal Dis: Yes Musculoskeletal Disorders: Gout Endocrine History of Endocrine Disorders: Yes Endocrine Disorders: Diabetes, Non-Insulin dep HEENT History of HEENT Disorders: Yes HEENT Disorders: Cataract Cancer History of Cancer: No Psychosocial History of Psychiatric Problem: No Integumentary History of Skin or Integumenta: No Blood Transfusions History of Blood Disorders: No Adverse Reaction to a Blood Tr: No Family Medical History Family Medial History: Cataract 19 FATHER Chest pain 19 MOTHER Dementia 19 MOTHER Family history: Alzheimer's disease 19 MOTHER Family history: Arthritis 19 MOTHER Family history: Diabetes mellitus 19 MOTHER Family history: Hypertension 19 FATHER 19 MOTHER G8 SISTER Headache Hypercholesterolemia 19 FATHER 19 MOTHER G8 SISTER Kidney disease 19 FATHER Prostate cancer 19 FATHER Stroke 19 FATHER Visual impairment 19 MOTHER G8 BROTHER G8 BROTHER G8 SISTER No Family History of: Abdominal aortic aneurysm Michael's disease Alcoholism Aphasia Cancer Cancer of colon Congenital heart disease Congestive heart failure Cystic fibrosis Dysphagia Family history: Allergy Family history: Asthma Family history: Breast disease Family history: Cardiovascular disease Family history: Coronary thrombosis Family history: Gastrointestinal disease Family history: Glaucoma Family history: Osteoporosis Family history: Thyroid disorder Hearing loss Heart disease Hereditary disease History of - anemia History of - disorder History of - respiratory disease History of drug abuse Human immunodeficiency virus (HIV) seropositivity Infertile Malignant neoplasm of lung Myocardial infarction Parkinson's disease Psychotic disorder Seizure disorder Tuberculosis Physical Exam Vital Signs Vital Sign - Last 12Hours 01/13/17 11:17 Temp 98.4 Pulse 64 Resp 16 B/P (MAP) 141/61 O2 Delivery Room Air Capillary Refill : Less Than 3 Seconds General Appearance: No Apparent Distress, WD/WN HEENT: PERRL/EOMI, Normal ENT Inspection Neck: Normal Inspection, Supple Respiratory: Chest Non Tender, Lungs Clear, Normal Breath Sounds, No Accessory Muscle Use, No Respiratory Distress Cardiovascular: Regular Rate, Rhythm, No Edema, No Murmur Gastrointestinal: Normal Bowel Sounds, Non Tender, Soft Extremity: Normal Capillary Refill, Normal Inspection, Non Tender, No Calf Tenderness, No Pedal Edema Neurologic/Psychiatric: Alert, Oriented x3, No Motor/Sensory Deficits, Normal Mood/Affect, 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 Norm as Tested Skin: Normal Color, Warm/Dry Progress/Results/Core Measures Results/Orders Lab Results Laboratory Tests Test 01/13/17 11:25 Range/Units White Blood Count 8.0 4.3-11.0 10^3/uL Red Blood Count 4.86 4.35-5.85 10^6/uL Hemoglobin 11.8 L 13.3-17.7 G/DL Hematocrit 37 L 40-54 % Mean Corpuscular Volume 75 L 80-99 FL Mean Corpuscular Hemoglobin 24 L 25-34 PG Mean Corpuscular Hemoglobin Concent 32 32-36 G/DL Red Cell Distribution Width 15.2 H 10.0-14.5 % Platelet Count 341 130-400 10^3/uL Mean Platelet Volume 9.8 7.4-10.4 FL Neutrophils (%) (Auto) 69 42-75 % Lymphocytes (%) (Auto) 23 12-44 % Monocytes (%) (Auto) 5 0-12 % Eosinophils (%) (Auto) 2 0-10 % Basophils (%) (Auto) 1 0-10 % Neutrophils # (Auto) 5.5 1.8-7.8 X 10^3 Lymphocytes # (Auto) 1.8 1.0-4.0 X 10^3 Monocytes # (Auto) 0.4 0.0-1.0 X 10^3 Eosinophils # (Auto) 0.2 0.0-0.3 10^3/uL Basophils # (Auto) 0.1 0.0-0.1 10^3/uL Prothrombin Time 12.2 12.2-14.7 SEC INR Comment 0.9 0.8-1.4 Activated Partial Thromboplast Time 28 24-35 SEC D-Dimer 1.14 H 0.00-0.49 UG/ML Sodium Level 136 135-145 MMOL/L Potassium Level 4.5 3.6-5.0 MMOL/L Chloride Level 102 98-107 MMOL/L Carbon Dioxide Level 24 21-32 MMOL/L Anion Gap 10 5-14 MMOL/L Blood Urea Nitrogen 22 H 7-18 MG/DL Creatinine 1.36 H 0.60-1.30 MG/DL Estimat Glomerular Filtration Rate 52 BUN/Creatinine Ratio 16 Glucose Level 298 H 70-105 MG/DL Calcium Level 10.1 8.5-10.1 MG/DL Magnesium Level 1.5 L 1.8-2.4 MG/DL Total Bilirubin 0.5 0.1-1.0 MG/DL Aspartate Amino Transf (AST/SGOT) 19 5-34 U/L Alanine Aminotransferase (ALT/SGPT) 27 0-55 U/L Alkaline Phosphatase 68 40-136 U/L Myoglobin 50.2 10.0-92.0 NG/ML Troponin I < 0.30 <0.30 NG/ML C-Reactive Protein High Sensitivity 0.08 0.00-0.50 MG/DL B-Type Natriuretic Peptide 11.8 <100.0 PG/ML Total Protein 7.6 6.4-8.2 GM/DL Albumin 4.2 3.2-4.5 GM/DL My Orders Orders - NARENDRA MONAHAN MD Hs C Reactive Protein (01/13/17 11:53) Ct Angio Chest W (01/13/17 12:15) Ns Iv 1000 Ml (Sodium Chloride 0.9%) (01/13/17 12:15) Iohexol Injection (Omnipaque 350 Mg/Ml 1 (01/13/17 12:45) Ns (Ivpb) (Sodium Chloride 0.9% Ivpb Bag (01/13/17 12:45) Ketorolac Injection (Toradol Injection) (01/13/17 14:00) Medications Given in ED Current Medications Medications Dose Ordered Sig/Chapito Route Start Time Stop Time Status Last Admin Dose Admin Aspirin 243 mg ONCE ONCE PO 01/13/17 11:30 01/13/17 11:31 DC 01/13/17 11:37 243 MG Iohexol 150 ml ONCE ONCE IV 01/13/17 12:45 01/13/17 12:46 DC 01/13/17 12:40 125 ML Ketorolac Tromethamine 15 mg ONCE ONCE IVP 01/13/17 14:00 01/13/17 14:01 DC 01/13/17 14:05 15 MG Sodium Chloride 100 ml ONCE ONCE IV 01/13/17 12:45 01/13/17 12:46 DC 01/13/17 12:40 80 ML Sodium Chloride 1,000 ml @ 0 mls/hr Q0M ONCE IV 01/13/17 12:15 01/13/17 12:16 DC 01/13/17 12:30 0 MLS/HR Vital Signs/I&O Vital Sign - Last 12Hours 01/13/17 01/13/17 01/13/17 11:17 11:37 14:05 Temp 98.4 98.1 98.1 Pulse 64 Resp 16 B/P (MAP) 141/61 O2 Delivery Room Air Blood Pressure Mean: 87 Progress Note #1: Time: 12:32 Progress Note Patient still has had no chest pain since arriving. D-dimer was elevated. Patient also describes some intermittent swelling of the left leg that is asymptomatic today. CT angiogram has been ordered. Progress Note #2: Time: 13:55 Progress Note Patient remains pain-free at this time. Case reviewed with Dr. Mireles who would like to patient admitted for observation and possible stress testing in the morning. Patient is agreeable. Toradol was given for headache. ECG Initial ECG Impression Date: Jan 13, 2017 Initial ECG Impression Time: 11:22 Initial ECG Rate: 73 Initial ECG Rhythm: Normal Sinus Initial ECG Impression: Normal Initial ECG Comparisson: Unchanged Comment Normal sinus rhythm with no ST elevation or depression. No axis deviation. Right bundle branch block. Diagnostic Imaging Diagonstic Imaging: Xray Plain Films/CT/US/NM/MRI: chest Comments Chest x-ray viewed by me and report reviewed. See report below: NAME: MOSES SANDOVAL [facility] REC#: [id number] PT STATUS: REG ER : 1950 PHYSICIAN: OBED ADAME APRN ADMIT DATE: 01/13/17/ER Draft Date of Exam:01/13/17 CHEST 1 VIEW, AP/PA ONLY Portable upright radiograph of the chest. INDICATION: Difficulty breathing. FINDINGS: The lungs are clear. The heart size is normal. No effusion or pneumothorax. The mediastinum and krystle appear unremarkable. There is a stent projecting over the left coronary artery distribution. IMPRESSION: No acute process. Dictated on workstation # [id number] Dict: 01/13/17 1252 Trans: 01/13/17 1254 CLAUDIO [id number] Interpreted by: JESSICA IRWIN MD Diagonstic Imaging: CT Plain Films/CT/US/NM/MRI: chest Comments CT angiogram of the chest viewed by me and report reviewed. See report below: NAME: MOSES SANDOVAL [facility] REC#: [id number] PT STATUS: REG ER : 1950 PHYSICIAN: NARENDRA MONAHAN MD ADMIT DATE: 01/13/17/ER Draft Date of Exam:01/13/17 CT ANGIO CHEST W PROCEDURE: CT angiography of the chest with contrast. TECHNIQUE: Multiple contiguous axial images were obtained through the chest after uneventful bolus administration of intravenous contrast. Reconstructed CTA MIP acquisitions were also performed. INDICATION: Shortness of breath. 125 mL of Omnipaque 350 is administered intravenously. FINDINGS: The pulmonary arteries are well opacified with no filling defects to suggest pulmonary embolism. The thoracic aorta is normal in caliber and demonstrates no evidence of dissection. The mediastinum demonstrates no mass or significantly enlarged lymph nodes. The heart size is normal. No pericardial or pleural effusion. The lungs demonstrate no significant consolidation, mass, or suspicious nodule. Sections in the upper abdomen demonstrate no significant abnormality. The osseous structures demonstrate minimal degenerative changes in the thoracic spine. IMPRESSION: No PE or aortic dissection. Unremarkable exam. Dictated on workstation # [id number] Dict: 01/13/17 1321 Trans: 01/13/17 1348 [id number] Interpreted by: JESSICA IRWIN MD Departure Communication (Admissions) Time/Spoke to Admitting Phy: 14:[address] Douglass Time/Spoke to Consulting Phy: 13:55 Communication/Consulting Dr. Mireles Impression Impression: Primary Impression: Chest pain Qualified Codes: R07.9 - Chest pain, unspecified Additional Impressions: Dyspnea Qualified Codes: R06.00 - Dyspnea, unspecified Coronary artery disease Qualified Codes: I25.10 - Atherosclerotic heart disease of [place] coronary artery without angina pectoris Acute headache Qualified Codes: R51 - Headache Disposition: 09 ADMITTED INPATIENT Condition: Improved Admissions Decision to Admit Reason: Admit from ER (General) Decision to Admit/Date: Jan 13, 2017 Time/Decision to Admit Time: 13:55 Departure-Patient Inst. Referrals: AUGIE DOUGLASS DO (PCP) Primary Care Physician NARENDRA MONAHAN MD Jan 13, 2017 12:33
[2017-01-13] MEDS ORDERED: IOHEXOL 350 MG/ML 150 ML (OMNIPAQUE 350) VIAL IV ONE (12:45)
[2017-01-13] MEDS ORDERED: NS 100 ML (IVPB) BAG IV ONE (12:45)
--- NOTE | 2017-01-13 12:55 | Diagnostic Imaging Report ---
Portable upright radiograph of the chest. INDICATION: Difficulty breathing. FINDINGS: The lungs are clear. The heart size is normal. No effusion or pneumothorax. The mediastinum and krystle appear unremarkable. There is a stent projecting over the left coronary artery distribution. IMPRESSION: No acute process. Dictated by: Dictated on workstation # [id number]
--- NOTE | 2017-01-13 13:48 | Diagnostic Imaging Report ---
PROCEDURE: CT angiography of the chest with contrast. TECHNIQUE: Multiple contiguous axial images were obtained through the chest after uneventful bolus administration of intravenous contrast. Reconstructed CTA MIP acquisitions were also performed. INDICATION: Shortness of breath. 125 mL of Omnipaque 350 is administered intravenously. FINDINGS: The pulmonary arteries are well opacified with no filling defects to suggest pulmonary embolism. The thoracic aorta is normal in caliber and demonstrates no evidence of dissection. The mediastinum demonstrates no mass or significantly enlarged lymph nodes. The heart size is normal. No pericardial or pleural effusion. The lungs demonstrate no significant consolidation, mass, or suspicious nodule. Sections in the upper abdomen demonstrate no significant abnormality. The osseous structures demonstrate minimal degenerative changes in the thoracic spine. IMPRESSION: No PE or aortic dissection. Unremarkable exam. Dictated by: Dictated on workstation # [id number]
[2017-01-13] MEDS ORDERED: KETOROLAC 30 MG/ML VIAL IVP ONE (14:00)
[2017-01-13 15:00] VITALS: BP 120/83
[2017-01-13] MEDS ORDERED: CATHETER FLUSH 10 ML SYR IV PRN (15:30)
[2017-01-13] MEDS ORDERED: EMPA25TA PO (15:32)
[2017-01-13] MEDS ORDERED: MAGN400T6 PO (15:38)
[2017-01-13] MEDS ORDERED: PATIENT MAY USE OWN MEDS, ALL MC SCH (17:00)
--- NOTE | 2017-01-13 17:14 | Consultation-Cardiology ---
HPI-Cardiology Cardiology Consultation Date of Consultation 01/13/17 Date of Admission Time Seen by Provider: 17:10 Indication: chest pain HPI 66 years old gentleman with history of coronary artery disease, myocardial infarction and stent. Was doing fairly well until last night when he started having left-sided chest pain or urgent left shoulder associated with mild shortness of breath reported that the pain is worse with deep inspiration. Better later on had some dizziness and went to bed, this morning started having chest pain again, similar to that episode, persistent, came to the emergency room for evaluation, currently he is chest pain-free, reporting some dyspnea on exertion. No palpitation, no syncope or near syncopal episodes. Has been compliant with his medications. Home Medications & Allergies Allergies: Coded Allergies: No Known Drug Allergies (Unverified , 05/16/13) Home Medication List Reviewed: Yes UQM-[id number]-Lzxubr Hx Patient Social History Marital Status: Employed/Student: employed Alcohol Use: Denies Use Recreational Drug Use: No Smoking Status: Never a Smoker 2nd Hand Smoke Exposure: No Recent Foreign Travel: No Recent Infectious Disease Expo: No Recent Hopitalizations: Yes (HEART CATH) Physical Abuse Screen: No Sexual Abuse: No Immunizations Up To Date Tetanus Booster (TDap): Unknown Date of Pneumonia Vaccine: Mar 15, 2013 Date of Influenza Vaccine: Nov 16, 2015 Past Medical History past medical history as discussed below Family Medical History Family History: 19 FATHER Cataract Family history: Hypertension Hypercholesterolemia Kidney disease Prostate cancer Stroke 19 MOTHER Chest pain Dementia Family history: Alzheimer's disease Family history: Arthritis Family history: Diabetes mellitus Family history: Hypertension Hypercholesterolemia Visual impairment G8 BROTHER Visual impairment G8 BROTHER Visual impairment G8 SISTER Family history: Hypertension Hypercholesterolemia Visual impairment Relation not specified for: Headache Constitutional: no symptoms reported, see HPI, dizziness EENTM: see HPI, no symptoms reported Respiratory: see HPI, No cough, dyspnea on exertion, No hemoptysis, No orthopnea, No phlegm, No short of breath, No stridor, No wheezing, No other Cardiovascular: see HPI, chest pain, No edema, No Hx of Intervention, No palpitations, No syncope, No vascular heart diseas, No other Gastrointestinal: no symptoms reported, see HPI Genitourinary: no symptoms reported, see HPI Musculoskeletal: no symptoms reported, see HPI Skin: no symptoms reported, see HPI Psychiatric/Neurological: No Symptoms Reported, See HPI Reviewed Test Results Reviewed Test Results Lab Laboratory Tests Test 01/13/17 11:25 Range/Units White Blood Count 8.0 4.3-11.0 10^3/uL Red Blood Count 4.86 4.35-5.85 10^6/uL Hemoglobin 11.8 L 13.3-17.7 G/DL Hematocrit 37 L 40-54 % Mean Corpuscular Volume 75 L 80-99 FL Mean Corpuscular Hemoglobin 24 L 25-34 PG Mean Corpuscular Hemoglobin Concent 32 32-36 G/DL Red Cell Distribution Width 15.2 H 10.0-14.5 % Platelet Count 341 130-400 10^3/uL Mean Platelet Volume 9.8 7.4-10.4 FL Neutrophils (%) (Auto) 69 42-75 % Lymphocytes (%) (Auto) 23 12-44 % Monocytes (%) (Auto) 5 0-12 % Eosinophils (%) (Auto) 2 0-10 % Basophils (%) (Auto) 1 0-10 % Neutrophils # (Auto) 5.5 1.8-7.8 X 10^3 Lymphocytes # (Auto) 1.8 1.0-4.0 X 10^3 Monocytes # (Auto) 0.4 0.0-1.0 X 10^3 Eosinophils # (Auto) 0.2 0.0-0.3 10^3/uL Basophils # (Auto) 0.1 0.0-0.1 10^3/uL Prothrombin Time 12.2 12.2-14.7 SEC INR Comment 0.9 0.8-1.4 Activated Partial Thromboplast Time 28 24-35 SEC D-Dimer 1.14 H 0.00-0.49 UG/ML Sodium Level 136 135-145 MMOL/L Potassium Level 4.5 3.6-5.0 MMOL/L Chloride Level 102 98-107 MMOL/L Carbon Dioxide Level 24 21-32 MMOL/L Anion Gap 10 5-14 MMOL/L Blood Urea Nitrogen 22 H 7-18 MG/DL Creatinine 1.36 H 0.60-1.30 MG/DL Estimat Glomerular Filtration Rate 52 BUN/Creatinine Ratio 16 Glucose Level 298 H 70-105 MG/DL Calcium Level 10.1 8.5-10.1 MG/DL Magnesium Level 1.5 L 1.8-2.4 MG/DL Total Bilirubin 0.5 0.1-1.0 MG/DL Aspartate Amino Transf (AST/SGOT) 19 5-34 U/L Alanine Aminotransferase (ALT/SGPT) 27 0-55 U/L Alkaline Phosphatase 68 40-136 U/L Myoglobin 50.2 10.0-92.0 NG/ML Troponin I < 0.30 <0.30 NG/ML C-Reactive Protein High Sensitivity 0.08 0.00-0.50 MG/DL B-Type Natriuretic Peptide 11.8 <100.0 PG/ML Total Protein 7.6 6.4-8.2 GM/DL Albumin 4.2 3.2-4.5 GM/DL Physical Exam Vital Signs Vital Sign - Last 12Hours 01/13/17 01/13/17 11:17 14:39 Temp 98.4 Pulse 64 Resp 16 B/P (MAP) 141/61 Pulse Ox 98 O2 Delivery Room Air Capillary Refill : Less Than 3 Seconds General Appearance: No Apparent Distress, WD/WN Eyes: Bilateral Eye Normal Inspection, Bilateral Eye PERRL, Bilateral Eye EOMI HEENT: PERRL/EOMI, TMs Normal, Normal ENT Inspection, Pharynx Normal Neck: Full Range of Motion, Normal Inspection, Non Tender, Supple, Carotid Bruit Respiratory: Chest Non Tender, Lungs Clear, Normal Breath Sounds, No Accessory Muscle Use, No Respiratory Distress Cardiovascular: Regular Rate, Rhythm, No Edema, No Gallop, No JVD, No Murmur, Normal Peripheral Pulses Gastrointestinal: Normal Bowel Sounds, No Organomegaly, No Pulsatile Mass, Non Tender, Soft Back: Normal Inspection, No CVA Tenderness, No Vertebral Tenderness Extremity: Normal Capillary Refill, Normal Inspection, Normal Range of Motion, Non Tender, No Calf Tenderness, No Pedal Edema Neurologic/Psychiatric: Alert, Oriented x3, No Motor/Sensory Deficits, Normal Mood/Affect Skin: Normal Color, Warm/Dry Lymphatic: No Adenopathy A/P-Cardiology Admission Diagnosis chest pain nonspecific etiology Coronary artery disease Hypertension Hyperlipidemia Assessment/Plan Chest pain nonspecific etiology, atypical in presentation, planning to proceed with stress test Intermediate metabolizer for Plavix. Maintained on Brilinta. Educated about compliance with medication taking the medicine regularly Coronary artery disease, cardiac catheterization was done on October 15, 2016 showing severe disease at the mid LAD, underwent stent placement using Xience Alpine 3.015 mm with excellent results, had another emergency cardiac catheterization which showed total occlusion of the stent with thrombus, underwent deployment of 2 stents overlapping Xience Alpine 3.018 mm and 2.75 x 15 extended proximally to 3.25 and at the overlap area to 3.1 and distally 3.0. Excellent results, patient felt better immediately, continue on aspirin and Brilinta. Hypertension, cannot tolerate beta isabela secondary to bradycardia, continue to monitor blood pressure Hyperlipidemia, hypertriglyceridemia, I will evaluate lipid profile in the morning Mild renal insufficiency, continue to monitor renal function Diabetes mellitus, followed and managed by primary care physician Clinical Quality Measures AMI/AHF: ASA po Prior to arrival: Yes (ASA 81 mg) DVT/VTE Risk/Contraindication: Risk Factor Score Per Nursin RFS Level Per Nursing on Admit: 4+=Very High MARCELINO CADENA MD Jan 13, 2017 17:14
--- NOTE | 2017-01-13 18:56 | History & Physicial ---
History of Present Illness History of Present Illness Reason for visit/HPI patient came to the emergency room today. Patient had chest discomfort and shortness of breath and blueness around the lips last night. This morning patient had chest discomfort on the left side and went up to his left shoulder. Patient had shortness of breath and dyspnea. Patient has history of myocardial infarctions and stent placement within the last 6 months. Patient has history of hypertension, diabetes, and mild renal insufficiency. Patient admitted. Patient on blood thinners already Date of Admission Jan 13, 2017 at 14:08 Time Seen by Provider: 18:45 I consulted on this patient on 01/13/17 18:52 Attending Physician Frederick Douglass DO Admitting Physician Frederick Douglass DO Consult Allergies and Home Medications Allergies Coded Allergies: No Known Drug Allergies (Unverified , 05/16/13) Home Medications Aspirin 81 Mg Tablet.dr, 81 MG PO DAILY, (Reported) Atorvastatin Calcium 80 Mg Tablet, 80 MG PO HS, (Reported) Empagliflozin 25 Mg Tablet, 25 MG PO DAILY, (Reported) Glimepiride 2 Mg Tablet, 2 MG PO DAILY, (Reported) Lisinopril 10 Mg Tablet, 10 MG PO DAILY, (Reported) Magnesium Oxide 400 Mg Tablet, 400 MG PO DAILY, (Reported) Metformin HCl 500 Mg Tablet, 1,000 MG PO BID, (Reported) TAKES 2 (500MG) TABLETS [place] 3 Polyunsat Fatty Acids 1,000 Mg Cap, 1,000 MG PO DAILY, (Reported) Omeprazole Magnesium 20 Mg Tablet.dr, 20 MG PO DAILY PRN for HEARTBURN, ( Reported) Ticagrelor 90 Mg Tablet, 90 MG PO BID, (Reported) Past Fjexudv-Eysmqd-Gnwadm Hx Patient Social History Marrital Status: Employed/Student: employed Alcohol Use: Denies Use Recreational Drug Use: No Smoking Status: Never a Smoker 2nd Hand Smoke Exposure: No Physical Abuse Screen: No Sexual Abuse: No Recent Foreign Travel: No Contact w/other who traveled: No Recent Hopitalizations: Yes (HEART CATH) Recent Infectious Disease Expo: No Immunizations Up To Date Tetanus Booster (TDap): Unknown Pediatric: Yes Date of Pneumonia Vaccine: Mar 15, 2013 Date of Influenza Vaccine: Nov 16, 2015 Seasonal Allergies Seasonal Allergies: No Surgeries Yes (CATARACTS, EYELID TUCK, ) Coronary Stent, Eye Surgery, Testicular Respiratory No Currently Using CPAP: No Currently Using BIPAP: No Cardiovascular Yes (STENT PLACEMENT X3) Coronary Artery Disease, Heart Attack, High Cholesterol, Hypertension Neurological No Reproductive System Sexually Transmitted Disease: No HIV/AIDS: No Genitourinary No Gastrointestinal No Musculoskeletal Yes Gout Endocrine History of Endocrine Disorders: Yes Endocrine Disorders: Diabetes, Non-Insulin dep HEENT History of HEENT Disorders: Yes HEENT Disorders: Cataract Cancer No Psychosocial History of Psychiatric Problem: No Integumentary History of Skin or Integumenta: No Blood Transfusions History of Blood Disorders: No Adverse Reaction to a Blood Tr: No Family Medical History Family Hx: Cataract 19 FATHER Chest pain 19 MOTHER Dementia 19 MOTHER Family history: Alzheimer's disease 19 MOTHER Family history: Arthritis 19 MOTHER Family history: Diabetes mellitus 19 MOTHER Family history: Hypertension 19 FATHER 19 MOTHER G8 SISTER Headache Hypercholesterolemia 19 FATHER 19 MOTHER G8 SISTER Kidney disease 19 FATHER Prostate cancer 19 FATHER Stroke 19 FATHER Visual impairment 19 MOTHER G8 BROTHER G8 BROTHER G8 SISTER No Family History of: Abdominal aortic aneurysm Michael's disease Alcoholism Aphasia Cancer Cancer of colon Congenital heart disease Congestive heart failure Cystic fibrosis Dysphagia Family history: Allergy Family history: Asthma Family history: Breast disease Family history: Cardiovascular disease Family history: Coronary thrombosis Family history: Gastrointestinal disease Family history: Glaucoma Family history: Osteoporosis Family history: Thyroid disorder Hearing loss Heart disease Hereditary disease History of - anemia History of - disorder History of - respiratory disease History of drug abuse Human immunodeficiency virus (HIV) seropositivity Infertile Malignant neoplasm of lung Myocardial infarction Parkinson's disease Psychotic disorder Seizure disorder Tuberculosis Constitutional: weakness EENTM: other (pain in back and neck, headaches) Respiratory: other (chest pain worse with breathing in) Cardiovascular: chest pain Gastrointestinal: no symptoms reported Genitourinary: no symptoms reported Physical Exam Vital Signs Vital Sign - Last 12Hours 01/13/17 01/13/17 11:17 14:39 Temp 98.4 Pulse 64 Resp 16 B/P (MAP) 141/61 Pulse Ox 98 O2 Delivery Room Air Capillary Refill : Less Than 3 Seconds General Appearance: No Apparent Distress, WD/WN Eyes: Bilateral Eye Normal Inspection HEENT: Normal ENT Inspection Neck: Full Range of Motion, Normal Inspection Respiratory: Chest Non Tender, Lungs Clear, No Accessory Muscle Use, No Respiratory Distress Cardiovascular: Regular Rate, Rhythm, No Murmur Gastrointestinal: Non Tender, Soft Assessment/Plan Assessment and Plan chest pain. Coronary artery disease. History of myocardial infarction with the last 6 months. Dyspnea. Hypertension history. Hyperlipidemia. Mild renal insufficiency Problems: Clinical Quality Measures AMI/AHF: ASA po Prior to arrival: Yes (ASA 81 mg) DVT/VTE Risk/Contraindication: Risk Factor Score Per Nursin RFS Level Per Nursing on Admit: 4+=Very High FREDERICK DOUGLASS DO Jan 13, 2017 18:56
[2017-01-13 20:00] VITALS: BP 148/82
[2017-01-13] MEDS ORDERED: ATORVASTATIN 80 MG (LIPITOR) TABLET PO SCH (21:00)
[2017-01-13] MEDS ORDERED: TICAGRELOR 90 MG TABLET (BRILINTA) PO SCH (21:00)
[2017-01-13] MEDS: TICAGRELOR 90 MG TABLET (BRILINTA) PO SCH (21:19)
[2017-01-13] MEDS: CATHETER FLUSH 10 ML SYR IV SCH (22:00)
[2017-01-14] VITALS: BP 118/71
[2017-01-14 04:30] VITALS: BP 125/78
[2017-01-14 04:38] LABS: MEAN PLATELET VOLUME 9.9 FL (7.4-10.4); RED BLOOD COUNT 4.34 10^6/uL (4.35-5.85); WHITE BLOOD COUNT 6.5 10^3/uL (4.3-11.0)
[2017-01-14 04:59] LABS: ALANINE AMINOTRANSFERASE 23 U/L (0-55); ALBUMIN 3.6 GM/DL (3.2-4.5); ANION GAP 10 MMOL/L (5-14); ASPARTATE AMINO TRANSFERASE 15 U/L (5-34); BILIRUBIN,TOTAL 0.4 MG/DL (0.1-1.0); BLOOD UREA NITROGEN 25 MG/DL (7-18); BUN/CREATININE RATIO 18; CALCIUM 9.7 MG/DL (8.5-10.1); CARBON DIOXIDE 24 MMOL/L (21-32); CHLORIDE 103 MMOL/L (98-107); CHOLESTEROL 104 MG/DL (< 200); CREATININE SERUM 1.37 MG/DL (0.60-1.30); DIRECT LDL 47 MG/DL (1-129); GFR ESTIMATED 52; GLUCOSE 163 MG/DL (70-105); POTASSIUM 3.9 MMOL/L (3.6-5.0); SODIUM 137 MMOL/L (135-145); TOTAL PROTEIN 6.2 GM/DL (6.4-8.2); TRIGLYCERIDES 195 MG/DL (<150); VLDL CHOLESTEROL 39 MG/DL (5-40)
[2017-01-14 05:12] LABS: TROPONIN I < 0.30 NG/ML (<0.30)
[2017-01-14] MEDS: CATHETER FLUSH 10 ML SYR IV SCH (06:24)
[2017-01-14] MEDS ORDERED: MAGNESIUM OXIDE (MAG-OX)400 MG TAB PO SCH (07:00)
[2017-01-14] MEDS ORDERED: OMEGA 3 (FISH OIL) 1000 MG CAP PO SCH (07:00)
[2017-01-14] MEDS ORDERED: GLIMEPIRIDE 2 MG (AMARYL) TAB PO SCH (07:00)
[2017-01-14] MEDS ORDERED: PANTOPRAZOLE 20 MG TABLET (PROTONIX) PO PRN (07:00)
--- NOTE | 2017-01-14 07:30 | Progress Note (SOAP) ---
Subjective Time Seen by Provider: 07:30 Subjective/Events-last exam patient had a good night. Patient has no chest pain. Patient have a stress test today. Diagnosis chest pain. History of recent MRIs. Diabetes. Coronary artery disease Objective Exam Vital Signs Date Time Temp Pulse Resp B/P (MAP) Pulse Ox O2 Delivery O2 Flow Rate FiO2 01/14/17 04:30 97.0 59 17 125/78 98 Room Air 01/14/17 01:00 76 01/14/17 00:00 99.1 70 17 118/71 98 Room Air 01/13/17 20:00 96.7 58 19 148/82 97 Room Air 01/13/17 19:00 55 01/13/17 15:00 97.4 54 18 120/83 98 Room Air 01/13/17 14:39 80 16 98 01/13/17 14:05 98.1 01/13/17 11:37 98.1 01/13/17 11:17 98.4 64 16 141/61 Room Air Capillary Refill : Less Than 3 Seconds General Appearance: No Apparent Distress, WD/WN Results Lab Laboratory Tests 01/13/17 11:25 01/14/17 04:15 Laboratory Tests 01/13/17 11:25: White Blood Count 8.0, Red Blood Count 4.86, Hemoglobin 11.8L, Hematocrit 37L, Mean Corpuscular Volume 75L, Mean Corpuscular Hemoglobin 24L, Mean Corpuscular Hemoglobin Concent 32, Red Cell Distribution Width 15.2H, Platelet Count 341, Mean Platelet Volume 9.8, Neutrophils (%) (Auto) 69, Lymphocytes (%) (Auto) 23, Monocytes (%) (Auto) 5, Eosinophils (%) (Auto) 2, Basophils (%) (Auto) 1, Neutrophils # (Auto) 5.5, Lymphocytes # (Auto) 1.8, Monocytes # (Auto) 0.4, Eosinophils # (Auto) 0.2, Basophils # (Auto) 0.1, Prothrombin Time 12.2, INR Comment 0.9, Activated Partial Thromboplast Time 28, D-Dimer 1.14H, Sodium Level 136, Potassium Level 4.5, Chloride Level 102, Carbon Dioxide Level 24, Anion Gap 10, Blood Urea Nitrogen 22H, Creatinine 1.36H, Estimat Glomerular Filtration Rate 52, BUN/Creatinine Ratio 16, Glucose Level 298H, Calcium Level 10.1, Magnesium Level 1.5L, Total Bilirubin 0.5, Aspartate Amino Transf (AST/ SGOT) 19, Alanine Aminotransferase (ALT/SGPT) 27, Alkaline Phosphatase 68, Myoglobin 50.2, Troponin I < 0.30, C-Reactive Protein High Sensitivity 0.08, B- Type Natriuretic Peptide 11.8, Total Protein 7.6, Albumin 4.2 01/13/17 17:45: Troponin I < 0.30 01/14/17 04:15: White Blood Count 6.5, Red Blood Count 4.34L, Hemoglobin 10.4L, Hematocrit 33L, Mean Corpuscular Volume 75L, Mean Corpuscular Hemoglobin 24L, Mean Corpuscular Hemoglobin Concent 32, Red Cell Distribution Width 15.0H, Platelet Count 298, Mean Platelet Volume 9.9, Sodium Level 137, Potassium Level 3.9, Chloride Level 103, Carbon Dioxide Level 24, Anion Gap 10, Blood Urea Nitrogen 25H, Creatinine 1.37H, Estimat Glomerular Filtration Rate 52, BUN/Creatinine Ratio 18, Glucose Level 163H, Calcium Level 9.7, Total Bilirubin 0.4, Aspartate Amino Transf (AST/ SGOT) 15, Alanine Aminotransferase (ALT/SGPT) 23, Alkaline Phosphatase 60, Troponin I < 0.30, Total Protein 6.2L, Albumin 3.6, Triglycerides Level 195H, Cholesterol Level 104, LDL Cholesterol Direct 47, VLDL Cholesterol 39, HDL Cholesterol 26L Assessment/Plan Assessment/Plan Assess & Plan/Chief Complaint chest pain. Coronary artery disease. Diabetes. To have stress test today Clinical Quality Measures AMI/AHF: ASA po Prior to arrival: Yes (ASA 81 mg) DVT/VTE Risk/Contraindication: Risk Factor Score Per Nursin RFS Level Per Nursing on Admit: 4+=Very High Contraindications-Pharm: Other *list below* AUGIE DOUGLASS DO Jan 14, 2017 07:30
[2017-01-14 08:08] VITALS: BP 131/85
[2017-01-14] MEDS ORDERED: lisINopril 10 MG (PRINIVIL) TAB PO SCH (09:00)
[2017-01-14] MEDS ORDERED: Empagliflozin 25 MG TABLET PO SCH (09:00)
[2017-01-14] MEDS ORDERED: ASPIRIN E.C. 81 MG (ECOTRIN) TAB PO SCH (09:00)
[2017-01-14] MEDS: TICAGRELOR 90 MG TABLET (BRILINTA) PO SCH (09:41)
[2017-01-14 12:00] VITALS: BP 126/78
--- NOTE | 2017-01-14 16:15 | Cardiology Progress Note ---
Subjective Date Seen by Provider: Jan 14, 2017 Time Seen by Provider: 08:30 Subjective/Events-last exam Patient was seen this morning, feeling well, no chest pain Review of Systems General: No Chills, No Night Sweats, No Fatigue, No Malaise, No Appetite, No Other HEENT: No Head Aches, No Visual Changes, No Eye Pain, No Ear Pain, No Dysphasia , No Sinus Congestion, No Post Nasal Drip, No Sore Throat, No Other Pulmonary: No Dyspnea, No Cough, No Pleuritic Chest Pain, No Other Cardiovascular: No: Chest Pain, Palpitations, Orthopnea, Paroxysmal Noc. Dyspnea, Edema, Lt Headedness, Other Objective-Cardiology Exam Last Set of Vital Signs Vital Signs 01/14/17 12:00 Temp 97.4 Pulse 66 Resp 18 B/P (MAP) 126/78 Pulse Ox 97 O2 Delivery Room Air Capillary Refill : Less Than 3 Seconds I&O Intake and Output 01/15/17 00:00 # Voids 3 General: Alert, Oriented X3, Cooperative HEENT: Atraumatic, PERRLA Neck: Supple, No JVD, No Thyromegaly Lungs: Clear to Auscultation, Normal Air Movement Heart: Regular Rate, Normal S1, Normal S2, No Murmurs Abdomen: Normal Bowel Sounds, Soft, No Tenderness, No Hepatosplenomegaly, No Masses Extremities: No Clubbing, No Cyanosis, No Edema, Normal Pulses, No Tenderness/ Swelling Skin: No Rashes, No Breakdown, No Significant Lesion Neuro: Normal Gait, Normal Speech, Strength at 5/5 X4 Ext, Normal Tone, Sensation Intact Psych/Mental Status: Mental Status NL, Mood NL Results Lab Laboratory Tests 01/14/17 04:15 A/P-Cardiology Admission Diagnosis chest pain nonspecific etiology Coronary artery disease Hypertension Hyperlipidemia Assessment/Plan Chest pain nonspecific etiology, atypical in presentation, had a stress test done this morning, showing no ischemia or infarction, okay for discharge from cardiology standpoint Intermediate metabolizer for Plavix. Maintained on Brilinta. Educated about compliance with medication taking the medicine regularly Coronary artery disease, cardiac catheterization was done on October 15, 2016 showing severe disease at the mid LAD, underwent stent placement using Xience Alpine 3.015 mm with excellent results, had another emergency cardiac catheterization which showed total occlusion of the stent with thrombus, underwent deployment of 2 stents overlapping Xience Alpine 3.018 mm and 2.75 x 15 extended proximally to 3.25 and at the overlap area to 3.1 and distally 3.0. Excellent results, patient felt better immediately, continue on aspirin and Brilinta. Hypertension, cannot tolerate beta isabela secondary to bradycardia, continue to monitor blood pressure Hyperlipidemia, hypertriglyceridemia, I will evaluate lipid profile in the morning Mild renal insufficiency, continue to monitor renal function Diabetes mellitus, followed and managed by primary care physician Clinical Quality Measures AMI/AHF: ASA po Prior to arrival: Yes (ASA 81 mg) DVT/VTE Risk/Contraindication: Risk Factor Score Per Nursin RFS Level Per Nursing on Admit: 4+=Very High Contraindications-Pharm: Other *list below* MARCELINO CADENA MD Jan 14, 2017 16:15
--- NOTE | 2017-01-15 07:11 | Discharge Inst-Simple/Standard ---
Discharge Inst-Standard Patient Instructions/Follow Up Plan of Care/Instructions/FU: 2 office in one week Activity as Tolerated: Yes Discharge Diet: ADA Diet AUGIE DOUGLASS DO Jan 15, 2017 7:11 am
--- NOTE | 2017-01-15 07:20 | Clinic Account Progress/Dx ---
Clinic Account Progress/Dx DIAGNOSIS: Time Seen by Provider: 07:18 chest pain unspecific etiology. Coronary artery disease. Hypertension. Hyperlipidemia. Mild renal insufficiency. Diabetes mellitus AUGIE DOUGLASS DO Jan 15, 2017 07:20
--- NOTE | 2017-01-15 19:29 | STRESS TEST ---
DATE OF SERVICE: 01/14/2017 EXERCISE MYOVIEW STRESS TEST REPORT Baseline heart rate is 69, baseline blood pressure 131/85. Baseline EKG is sinus rhythm with right bundle branch block. SUMMARY: The patient was injected with 10.53 mCi of technetium-99 Myoview and the resting images were obtained. Then, the patient started exercising with a baseline heart rate, blood pressure and EKG mentioned above. At minute 6, the patient was injected with 32.9 mCi of technetium-99 Myoview. The patient was able to exercise for a total of 7 minutes on standard [place] protocol. EKG was showing nondiagnostic changes. Blood pressure at peak was 201/87. During recovery, heart rate and blood pressure returned to baseline. EKG returned to baseline. The resting and stress images were reviewed and compared in the short axis, horizontal long axis and vertical long axis views. Review of the images showed diaphragmatic attenuation with no significant ischemia or infarction. SSS is 2, SDS 2, TID value 1.02. On the gated images, the left ventricle appeared to be normal size with normal contractility. Calculated ejection fraction 55%. CONCLUSION: 1. Good exercise tolerance, a total of 7 minutes on standard [place] protocol, total of 8.5 METS achieving 88% of maximum expected heart rate. 2. Hypertensive response to exercise, returned to baseline during recovery. 3. Baseline right bundle branch block with minimal nondiagnostic EKG changes with exercise, returned to baseline during recovery. 4. Diaphragmatic attenuation with no ischemia or infarction on SPECT images. 5. Normal left ventricular size with normal contractility, calculated ejection fraction 55%. Job ID: [id number] DocumentID: [id number] Dictated Date: 01/15/2017 15:56:31 Tuber Machine Operator Helper Date: 01/15/2017 19:29:32 Dictated By: MARCELINO CADENA MD
== END 2017-01-14 13:55 | disposition home or self-care (01) ==
LOC: EDUNIT# 11:15 → ER 11:17 → ICU 14:08 → UNDOADMOB 14:08 → ICU 15:00 → UNDODISOB 01-14 14:10
PROVIDERS: ADMIT Family Medicine; ATTEND Family Medicine
DX: R07.9 Chest pain, unspecified (principal); I25.10 Atherosclerotic heart disease of native coronary artery without angina pectoris; I10 Essential (primary) hypertension; E78.5 Hyperlipidemia, unspecified; N28.9 Disorder of kidney and ureter, unspecified; E11.9 Type 2 diabetes mellitus without complications; I25.2 Old myocardial infarction; Z95.5 Presence of coronary angioplasty implant and graft; Z79.02 Long term (current) use of antithrombotics/antiplatelets; Z79.82 Long term (current) use of aspirin; Z79.84 Long term (current) use of oral hypoglycemic drugs
CPT/HCPCS: 36415; 71010; 71275; 78452; 80053; 80061; 83735; 83874; 83880; 84484; 85025; 85027; 85379; 85610; 85730; 86141; 93005; 93017; 93041; 96374

== ENCOUNTER → 2017-06-06 | Outpatient (CLI) | payer MEDICARE, OTHER ==
[~2017-06-06] MED LIST changes: +ACHD5005 PO; +EMPA25TA PO; -HYDR-3812 PO; -ROSU20TA28 PO; +ROSU20TA30 PO
--- NOTE | 2017-06-06 12:09 | Diagnostic Imaging Report ---
INDICATION: Cough and congestion. TIME OF EXAM: 12:15 p.m. COMPARISON: Correlation is made with prior study from 01/13/2017. FINDINGS: The heart size is normal. The pulmonary vascularity is unremarkable. The lungs are clear. No infiltrate, effusion or pneumothorax is detected. IMPRESSION: No acute cardiopulmonary process is detected. Dictated by: Dictated on workstation # [id number]
[2017-06-06 12:13] LABS: BASOPHILS # (AUTO) 0.1 10^3/uL (0.0-0.1); BASOPHILS % (AUTO) 1 % (0-10); EOSINOPHILS # (AUTO) 0.2 10^3/uL (0.0-0.3); EOSINOPHILS % (AUTO) 4 % (0-10); HEMATOCRIT 37 % (40-54); HEMOGLOBIN 11.4 G/DL (13.3-17.7); LYMPHOCYTES # (AUTO) 1.4 X 10^3 (1.0-4.0); LYMPHOCYTES % (AUTO) 24 % (12-44); MEAN CORPUSCULAR HEMOGLOBIN 21 PG (25-34); MEAN CORPUSCULAR HGB CONC 31 G/DL (32-36); MEAN CORPUSCULAR VOLUME 68 FL (80-99); MEAN PLATELET VOLUME 9.4 FL (7.4-10.4); MONOCYTES # (AUTO) 0.5 X 10^3 (0.0-1.0); MONOCYTES % (AUTO) 8 % (0-12); NEUTROPHILS # (AUTO) 3.5 X 10^3 (1.8-7.8); NEUTROPHILS % (AUTO) 62 % (42-75); PLATELET COUNT 402 10^3/uL (130-400); RED BLOOD COUNT 5.41 10^6/uL (4.35-5.85); RED CELL DISTRIBUTION WIDTH 19.5 % (10.0-14.5); WHITE BLOOD COUNT 5.6 10^3/uL (4.3-11.0)
== END ==
LOC: RAD 11:47
PROVIDERS: ATTEND Family Medicine
DX: R05 Cough (principal); R09.89 Other specified symptoms and signs involving the circulatory and respiratory systems; R50.9 Fever, unspecified
CPT/HCPCS: 36415; 71046; 85025

== ENCOUNTER → 2017-07-07 | Outpatient (CLI) | payer MEDICARE, OTHER ==
[~2017-07-07] MED LIST changes: -METF500T4 PO; +METF500T5 PO
[2017-07-07 10:18] LABS: BASOPHILS # (AUTO) 0.1 10^3/uL (0.0-0.1); BASOPHILS % (AUTO) 1 % (0-10); EOSINOPHILS # (AUTO) 0.2 10^3/uL (0.0-0.3); EOSINOPHILS % (AUTO) 3 % (0-10); HEMATOCRIT 37 % (40-54); HEMOGLOBIN 11.7 G/DL (13.3-17.7); LYMPHOCYTES # (AUTO) 1.4 X 10^3 (1.0-4.0); LYMPHOCYTES % (AUTO) 21 % (12-44); MEAN CORPUSCULAR HEMOGLOBIN 22 PG (25-34); MEAN CORPUSCULAR HGB CONC 32 G/DL (32-36); MEAN CORPUSCULAR VOLUME 69 FL (80-99); MEAN PLATELET VOLUME 9.4 FL (7.4-10.4); MONOCYTES # (AUTO) 0.5 X 10^3 (0.0-1.0); MONOCYTES % (AUTO) 8 % (0-12); NEUTROPHILS # (AUTO) 4.4 X 10^3 (1.8-7.8); NEUTROPHILS % (AUTO) 67 % (42-75); PLATELET COUNT 415 10^3/uL (130-400); RED BLOOD COUNT 5.38 10^6/uL (4.35-5.85); RED CELL DISTRIBUTION WIDTH 21.1 % (10.0-14.5); WHITE BLOOD COUNT 6.6 10^3/uL (4.3-11.0)
[2017-07-07 10:29] LABS: BILIRUBIN,URINE NEGATIVE (NEGATIVE); CLARITY,URINE CLEAR; COLOR,URINE YELLOW; GLUCOSE, URINE (UA) 4+ (NEGATIVE); KETONES,URINE NEGATIVE (NEGATIVE); LEUKOCYTE ESTERASE ,URINE NEGATIVE (NEGATIVE); NITRITE,URINE NEGATIVE (NEGATIVE); PH,URINE 5 (5-9); PROTEIN,URINE 1+ (NEGATIVE); UROBILINOGEN,URINE NORMAL (NORMAL)
[2017-07-07 10:35] LABS: BACTERIA,URINE NEGATIVE /HPF; SQUAMOUS EPITHELIAL CELL,UR RARE /HPF
[2017-07-07 10:44] LABS: ALBUMIN 4.1 GM/DL (3.2-4.5); BILIRUBIN,TOTAL 0.3 MG/DL (0.1-1.0); CALCIUM 9.7 MG/DL (8.5-10.1); CREATININE SERUM 1.48 MG/DL (0.60-1.30); TOTAL PROTEIN 7.2 GM/DL (6.4-8.2)
== END ==
LOC: LAB 09:55
PROVIDERS: ATTEND Family Medicine
DX: I25.10 Atherosclerotic heart disease of native coronary artery without angina pectoris (principal); E11.9 Type 2 diabetes mellitus without complications; Z12.5 Encounter for screening for malignant neoplasm of prostate
CPT/HCPCS: 36415; 80053; 80061; 81000; 83036; 84153; 84550; 85025

== ENCOUNTER 2018-02-09 05:38 | Outpatient (CLI) | payer MEDICARE ==
[~2018-02-09] VITALS: Ht 185.4 cm; Wt 83.0 kg
[~2018-02-09 05:38] MED LIST changes: +METF-397 PO; -METF500T5 PO; -ROSU20TA30 PO; +ROSU20TA31 PO
== END 2018-02-09 13:54 ==
LOC: PREOP 05:38
PROVIDERS: ATTEND Surgery
DX: Z01.818 Encounter for other preprocedural examination (principal)

== ENCOUNTER 2018-02-11 06:09 | Day surgery (SDC) | payer MEDICARE ==
[~2018-02-11] VITALS: Ht 185.4 cm; Wt 83.0 kg
[2018-02-11] MEDS: LACTATED RINGERS 1,000 ML IV PRN ×3 (06:40→08:33)
[2018-02-11 06:45] VITALS: BP 120/60
[2018-02-11] MEDS ORDERED: ceFAZolin 2 GM IV Premixed 50 ML ONE (06:50)
[2018-02-11] MEDS ORDERED: LIDOCAINE PF 2% 5 ML (XYLOCAINE) VIAL ONE (06:53)
[2018-02-11] MEDS ORDERED: ROCURONIUM 10 MG/ML 5 ML SYRINGE IV ONE (06:53)
[2018-02-11] MEDS ORDERED: MIDAZOLAM 2 MG/2 ML (VERSED) VIAL ONE (06:53)
[2018-02-11] MEDS ORDERED: proPOfol 200 MG/20 ML (DIPRIVAN) VIAL IV ONE (06:53)
[2018-02-11] MEDS ORDERED: ONDANSETRON 4 MG/2 ML (SDV) Z0FRAN ONE (06:53)
[2018-02-11] MEDS ORDERED: fentaNYL INJECTION 100 MCG/2 ML AMP ONE (06:53)
[2018-02-11] MEDS ORDERED: DEXAMETHASONE 10 MG/ML (DECADRON) 1 ML VIAL ONE (06:54)
[2018-02-11] MEDS ORDERED: SEVOFLURANE (ULTANE) 15 ML INHAL SOLN ONE ×10 (06:54→10:12)
[2018-02-11] MEDS ORDERED: ceFAZolin 2 GM IV Premixed 50 ML IV ONE (07:00)
[2018-02-11] MEDS ORDERED: BUP/EPI 0.5% 1:200,000 (SENSORCAINE) 30 ML VIAL ONE (07:15)
[2018-02-11 07:17] LABS: ALBUMIN 3.9 GM/DL (3.2-4.5); BILIRUBIN,TOTAL 0.3 MG/DL (0.1-1.0); CALCIUM 9.3 MG/DL (8.5-10.1); CREATININE SERUM 1.29 MG/DL (0.60-1.30); POTASSIUM 4.2 MMOL/L (3.6-5.0); TOTAL PROTEIN 6.3 GM/DL (6.4-8.2)
--- NOTE | 2018-02-11 07:52 | Progress Note-Pre Operative ---
Pre-Operative Progress Note H&P Reviewed The H&P was reviewed, patient examined and no changes noted. Date Seen by Provider: Jan 14, 2018 Time Seen by Provider: 15:00 Date H&P Reviewed: Feb 11, 2018 Time H&P Reviewed: 07:52 Pre-Operative Diagnosis: Bilateral Inguinal Herniae SONY CACERES MD Feb 11, 2018 07:52
[2018-02-11] MEDS ORDERED: GLYCOPYRROLATE 0.2 MG/ML (ROBINUL) 2 ML VIAL ONE (09:58)
[2018-02-11] MEDS ORDERED: NEOSTIGMINE 1 MG/ML 5 ML SYRINGE ONE (09:58)
[2018-02-11] MEDS ORDERED: ACHD5005 PO ×2 (10:18)
--- NOTE | 2018-02-11 10:19 | Discharge Inst-Simple/Standard ---
Discharge Inst-Standard Discharge Medications New, Converted or Re-Newed RX: RX on Chart Patient Instructions/Follow Up Plan of Care/Instructions/FU: Bandaids off in 48 hours. Incentive spirometry. F/U in 4 weeks Activity as Tolerated: No Goal: No lifting over 20 lb Discharge Diet: No Restrictions SONY CACERES MD Feb 11, 2018 10:19
[2018-02-11] MEDS ORDERED: morphine INJ 10 MG/ML 1ML (SYR OR VIAL) ONE (10:28)
[2018-02-11] MEDS ORDERED: MEPERIDINE (DEMEROL) INJ 50 MG/ML IVP ONE (10:30)
[2018-02-11] MEDS ORDERED: morphine INJ 10 MG/ML 1ML (SYR OR VIAL) IVP ONE (10:30)
[2018-02-11] MEDS ORDERED: ONDANSETRON 4 MG/2 ML (SDV) Z0FRAN IVP PRN (10:30)
[2018-02-11] MEDS ORDERED: PROMETHAZINE INJ 25 MG/ML (PHENERGAN) AMP IVP ONE (10:30)
[2018-02-11] MEDS ORDERED: HYDROmorphone 2 MG/ML VIAL (DILAUDID) IV ONE (10:30)
[2018-02-11 11:15] VITALS: BP 94/58
[2018-02-11] MEDS ORDERED: HYDROcodone/APAP 5 MG/325 MG (LORTAB) TAB ONE (11:41)
[2018-02-11 11:45] VITALS: BP 110/51
--- NOTE | 2018-02-11 12:12 | Operative Report ---
Operative Report Date of Procedure/Surgery Feb 11, 2018 Surgeon (s) SONY CACERES MD Md Do Resident Ur[facility] Care (s): N/A Post-Operative Diagnosis direct left inguinal hernia. Indirect right internal hernia Procedure Performed robotic assisted repair of bilateral inguinal herniae with mesh Description of Procedure Anesthesia Type: General Estimated blood loss (mL): minimal Specimen(s) collected/removed none Description of the Procedure Indication for the procedures: This gentleman presented with symptomatically, reducible, bilateral inguinal herniae. He was offered repair using minimally invasive technique with robotic assistance and mesh reinforcement. Informed consent was obtained after reviewing the operative details and complications of postoperative hematoma, infection of the mesh and a low incidence of recurrence. description of the procedures: He was placed supine on the operative table and general anesthesia induced. A gram of Ancef was administered intravenously as prophylaxis against wound infection. Sequential compression devices were placed around his legs, to minimize the risk of venous thrombosis. A Rios catheter was placed to decompress the bladder during surgery. It was removed at the end of the operation. Abdomen was prepared and draped in the usual sterile manner. Pneumoperitoneum was established using a Veress needle introduced over the supraumbilical region. Intra-abdominal pressure was maintained at 15 mmHg, using carbon dioxide insufflation. A 12 mm trocar was placed and anatomy visualized using the high definition, 3-dimensional laparoscope associated with da [employer] system. Under direct view, I placed an 8 mm trocar over each side of the abdomen and the patient was placed in deep Trendelenburg position, to facilitate displacement of loops of bowel out of the pelvis. Laparoscopic survey confirmed an indirect right inguinal hernia and a direct left inguinal hernia. I began the dissection on the right side. Peritoneum was incised laterally, entering the preperitoneal space. Dissection was continued in a lateral to medial direction, displaying Mahendra's ligament first. The hernia sac was reduced completely, protecting the cord structures. The defect in the transversalis fascia was approximated using a 2-0V LOC suture with robotic assistance. Preperitoneal space was then reinforced using a low- profile polypropylene mesh ( 3-D light), measuring 16 cm in length by 10.5 cm in width. It was secured to Mahendra's ligament and the lateral abdominal muscles using a 2-0 Vicryl suture with robotic assistance, without entrapping any of the nerves. Peritoneum was then reconstituted using a 2-0V LOC suture. A small rent in the lateral aspect of the peritoneum was reinforced using 2-0 Vicryl sutures. A similar dissection was performed on the left side. The defect on the transversalis fascia was much larger and approximated using 20V LOC sutures. A pre-formed, low-profile polypropylene mesh measuring 15.4 cm in length by 10.2 cm in width was chosen for reinforcement. It was secured to Mahendra's ligament and the lateral abdominal muscles using 2-0V vicryl sutures. Hemostasis was satisfactory and the peritoneum closed with a 2-0V LOC suture with robotic assistance. The fascia over the supraumbilical incision was closed using #1 Vicryl. Skin incisions were closed using 0 Vicryl, in a subcuticular fashion. 0.5 percent Marcaine with epinephrine was infiltrated along the incisions, both preemptively and at the conclusion of the operation. He tolerated the procedure well, was extubated in the operating room and taken to the recovery room in a stable Findings of the Procedure See op report Allergies and Home Medications Allergies Coded Allergies: No Known Drug Allergies (Unverified , 05/16/13) Home Medications Aspirin 81 Mg Tablet.dr, 81 MG PO DAILY, (Reported) Atorvastatin Calcium 80 Mg Tablet, 80 MG PO HS, (Reported) Empagliflozin 25 Mg Tablet, 25 MG PO DAILY, (Reported) Glimepiride 2 Mg Tablet, 2 MG PO DAILY, (Reported) Hydrocodone Bit/Acetaminophen 1 Tab Tab, 1 TAB PO Q6H PRN for PAIN-MODERATE Prescribed by: SONY CACERES on 02/11/18 1018 Lisinopril 10 Mg Tablet, 10 MG PO DAILY, (Reported) Metformin HCl 500 Mg Tablet, 1,000 MG PO BID, (Reported) TAKES 2 (500MG) TABLETS [place] 3 Polyunsat Fatty Acids 1,000 Mg Cap, 1,000 MG PO DAILY, (Reported) Omeprazole Magnesium 20 Mg Tablet.dr, 20 MG PO DAILY PRN for HEARTBURN, ( Reported) Patient Home Medication List Home Medication List Reviewed: Yes SONY CACERES MD Feb 11, 2018 12:12
[2018-02-11 12:15] VITALS: BP 124/66
[2018-02-11 13:00] VITALS: BP 124/66
[2018-02-11] MEDS ORDERED: HYDROcodone/APAP 5 MG/325 MG (LORTAB) TAB PO ONE (15:00)
--- NOTE | 2018-02-11 16:05 | Anesthesia-General Post-Op ---
General Patient Condition Mental Status/LOC: Same as Preop Cardiovascular: Satisfactory Nausea/Vomiting: Absent Respiratory: Satisfactory Pain: Controlled Complications: Absent Post Op Complications Complications None Follow Up Care/Instructions Patient Instructions None needed. Anesthesia/Patient Condition Patient Condition Patient was seen this morning after the procedure and he was doing well, no complaints, stable vital signs, no apparent adverse anesthesia problems. NETO ALEJANDRO DO Feb 11, 2018 16:05
== END 2018-02-11 13:25 | disposition home or self-care (01) ==
LOC: SDC 06:09
PROVIDERS: ATTEND Surgery
DX: K40.20 Bilateral inguinal hernia, without obstruction or gangrene, not specified as recurrent (principal); I25.10 Atherosclerotic heart disease of native coronary artery without angina pectoris; E11.9 Type 2 diabetes mellitus without complications; I10 Essential (primary) hypertension; I25.2 Old myocardial infarction; Z79.84 Long term (current) use of oral hypoglycemic drugs; Z79.899 Other long term (current) drug therapy
CPT/HCPCS: 36415; 80053; 87081; 94664

== ENCOUNTER 2018-03-17 20:29 | Emergency (ER) | payer MEDICARE, OTHER ==
[~2018-03-17] VITALS: Ht 185.4 cm; Wt 79.4 kg
--- NOTE | 2018-03-17 21:34 | NUR ---
Pt had hernia surgery by dr. red on 02/11/2018. He stated the the left side pain got better but the right side keeps getting worse. He has been to the doctor 3 times for the pain. Last seen doctor last on 03/12/17 and got cortisone shot and helped for 24 hours then got worse than before.
--- NOTE | 2018-03-17 22:08 | ED General ---
General Chief Complaint: General Problems/Pain Stated Complaint: HERNIA SURGERY 02/11 INCREASED PAIN Nursing Triage Note: Pt has sugery for hernia repair on 02/11/2018 and left side pain got better but right side keeps getting worse. Pt stated he has been to the doctor 3 times for pain. He went to doctor last and got cortisone shot and helped for 24 hours then got worse. Nursing Sepsis Screen: No Definite Risk Source of Information: Patient, Spouse Exam Limitations: No Limitations History of Present Illness Date Seen by Provider: Mar 17, 2018 Time Seen by Provider: 22:08 Initial Comments 67-year-old male patient presents to the emergency department complains of right groin pain since having a bilateral inguinal hernia repair on 02/11/[address] Caceres. Patient states the left groin has healed without any residual pain or symptoms. Patient now complains of pain progressively getting worse to the right groin. States at times he notices a sharp/burning pain down the medial thigh. Worse with movement and palpation. Denies fevers, difficulty with urination, hematuria, frequency, diarrhea, constipation, nausea, vomiting, or abdominal pain. Patient states his the right groin was injected with cortisone without improvement in symptoms. Timing/Duration: Getting Worse, Other (1 month) Modifying Factors: worse with Medication (no improvement with Tylenol, ibuprofen, and an occasional hydrocodone. States hydrocodone only makes him sleepy and does not help with the pain.), worse with Movement, worse with Other (worse with palpation) Allergies and Home Medications Allergies Coded Allergies: No Known Drug Allergies (Unverified , 05/16/13) Home Medications Aspirin 81 Mg Tablet., 81 MG PO DAILY, (Reported) Atorvastatin Calcium 80 Mg Tablet, 80 MG PO HS, (Reported) Empagliflozin 25 Mg Tablet, 25 MG PO DAILY, (Reported) Gabapentin 100 Mg Capsule, 100 MG PO UD 1 cap po once on day 1, then 1 cap po bid on day 2, then 1 cap po tid Prescribed by: PAU SILVA on 03/17/18 8969 Glimepiride 2 Mg Tablet, 2 MG PO DAILY, (Reported) Hydrocodone Bit/Acetaminophen 1 Tab Tab, 1 TAB PO Q6H PRN for PAIN-MODERATE Prescribed by: SONY CACERES on 02/11/18 1018 Lisinopril 10 Mg Tablet, 10 MG PO DAILY, (Reported) Metformin HCl 500 Mg Tablet, 1,000 MG PO BID, (Reported) TAKES 2 (500MG) TABLETS [place] 3 Polyunsat Fatty Acids 1,000 Mg Cap, 1,000 MG PO DAILY, (Reported) Omeprazole Magnesium 20 Mg Tablet.dr, 20 MG PO DAILY PRN for HEARTBURN, ( Reported) Tramadol HCl 50 Mg Tablet, 50 MG PO Q4H PRN for pain Prescribed by: PAU SILVA on 03/17/18 5098 Patient Home Medication List Home Medication List Reviewed: Yes Review of Systems Review of Systems Constitutional: No chills, No fever, No malaise EENTM: no symptoms reported Respiratory: No cough, No phlegm, No short of breath Cardiovascular: No chest pain, No edema, No palpitations Gastrointestinal: No abdominal pain, No constipation, No diarrhea, No hematemesis, No loss of appetite, No melena, No nausea, No vomiting Genitourinary: see HPI; No decreased output, No dysuria, No frequency; pain ( right inguinal pain) Musculoskeletal: see HPI Skin: no symptoms reported Psychiatric/Neurological: Denies Numbness; Paresthesia (intermittent paresthesias to the right groin and thigh); Denies Tingling, Denies Tremors, Denies Weakness All Other Systems Reviewed Negative Unless Noted: Yes (Negative excepted noted.) Past Kyepwbc-Gtbseb-Tfmonb Hx Past Med/Social Hx: Reviewed Nursing Past Med/Soc Hx Patient Social History Alcohol Use: Denies Use Recreational Drug Use: No Smoking Status: Never a Smoker 2nd Hand Smoke Exposure: No Recent Foreign Travel: No Contact w/Someone Who Travel: No Recent Infectious Disease Expo: No Recent Hopitalizations: No Physical Abuse: No Sexual Abuse: No Mistreated: No Fear: No Immunizations Up To Date Tetanus Booster (TDap): Unknown PED Vaccines UTD: Yes Date of Pneumonia Vaccine: Mar 15, 2013 Date of Influenza Vaccine: Nov 15, 2016 Seasonal Allergies Seasonal Allergies: No Past Medical History Surgeries: Yes (CATARACTS, EYELID TUCK, bilateral inguinal herniorrhaphy) Coronary Stent, Eye Surgery, Testicular Respiratory: No Currently Using CPAP: No Currently Using BIPAP: No Cardiac: Yes (STENT PLACEMENT X3) Coronary Artery Disease, Heart Attack, High Cholesterol, Hypertension Neurological: No 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) Sexually Transmitted Disease: No HIV/AIDS: No Genitourinary: No Gastrointestinal: No Musculoskeletal: Yes Gout Endocrine: Yes Diabetes, Non-Insulin dep HEENT: Yes Cataract Cancer: No Psychosocial: No Integumentary: No Blood Disorders: No Adverse Reaction/Blood Tranf: No Family Medical History Reviewed Nursing Family Hx Cataract 19 FATHER Chest pain 19 MOTHER Dementia 19 MOTHER Family history: Alzheimer's disease 19 MOTHER Family history: Arthritis 19 MOTHER Family history: Diabetes mellitus 19 MOTHER Family history: Hypertension 19 FATHER 19 MOTHER G8 SISTER Headache Hypercholesterolemia 19 FATHER 19 MOTHER G8 SISTER Kidney disease 19 FATHER Prostate cancer 19 FATHER Stroke 19 FATHER Visual impairment 19 MOTHER G8 BROTHER G8 BROTHER G8 SISTER No Family History of: Abdominal aortic aneurysm Corder's disease Alcoholism Aphasia Cancer Cancer of colon Congenital heart disease Congestive heart failure Cystic fibrosis Dysphagia Family history: Allergy Family history: Asthma Family history: Breast disease Family history: Cardiovascular disease Family history: Coronary thrombosis Family history: Gastrointestinal disease Family history: Glaucoma Family history: Osteoporosis Family history: Thyroid disorder Hearing loss Heart disease Hereditary disease History of - anemia History of - disorder History of - respiratory disease History of drug abuse Human immunodeficiency virus (HIV) seropositivity Infertile Malignant neoplasm of lung Myocardial infarction Parkinson's disease Psychotic disorder Seizure disorder Tuberculosis No Pertinent Family Hx Physical Exam Vital Signs Vital Signs - First Documented 03/17/18 21:48 Temp 98.0 Pulse 58 Resp 18 B/P (MAP) 150/77 (101) Pulse Ox 96 O2 Delivery Room Air Capillary Refill : Less Than 3 Seconds Height, Weight, BMI Height: 6'1.00" Weight: 175lbs. 0.0oz. [id number]; 24.1 BMI Method:Stated General Appearance: No Apparent Distress, WD/WN HEENT: PERRL/EOMI, Pharynx Normal Neck: Non Tender, Supple Respiratory: Lungs Clear, Normal Breath Sounds, No Accessory Muscle Use, No Respiratory Distress Cardiovascular: Regular Rate, Rhythm, No Edema, No Murmur, Normal Peripheral Pulses Gastrointestinal: Normal Bowel Sounds, No Organomegaly, Soft, Tenderness ( tenderness to the right groin with minimal swelling. No induration, erythema, or open wound noted.), Other (abdominal incisions well healed without evidence of cellulitis.) Extremity: Normal Capillary Refill, No Calf Tenderness, No Pedal Edema Neurologic/Psychiatric: Alert, Oriented x3, No Motor/Sensory Deficits, Normal Mood/Affect Skin: Normal Color, Warm/Dry Progress/Results/Core Measures Suspected Sepsis Recent Fever Within 48 Hours: No Infection Criteria Present: None New/Unexplained Altered Menta: No Sepsis Screen: No Definite Risk SIRS Temperature:98.0 Pulse: 58 Respiratory Rate: 18 Laboratory Tests 03/17/18 22:27: White Blood Count 8.0 Blood Pressure 150 /77 Mean: 101 Laboratory Tests 03/17/18 22:27: Creatinine 1.12, Platelet Count 232 Results/Orders Lab Results Laboratory Tests Test 03/17/18 22:27 03/17/18 23:02 Range/Units White Blood Count 8.0 4.3-11.0 10^3/uL Red Blood Count 5.02 4.35-5.85 10^6/uL Hemoglobin 14.7 13.3-17.7 G/DL Hematocrit 43 40-54 % Mean Corpuscular Volume 86 80-99 FL Mean Corpuscular Hemoglobin 29 25-34 PG Mean Corpuscular Hemoglobin Concent 34 32-36 G/DL Red Cell Distribution Width 12.7 10.0-14.5 % Platelet Count 232 130-400 10^3/uL Mean Platelet Volume 10.0 7.4-10.4 FL Neutrophils (%) (Auto) 55 42-75 % Lymphocytes (%) (Auto) 31 12-44 % Monocytes (%) (Auto) 8 0-12 % Eosinophils (%) (Auto) 5 0-10 % Basophils (%) (Auto) 1 0-10 % Neutrophils # (Auto) 4.4 1.8-7.8 X 10^3 Lymphocytes # (Auto) 2.5 1.0-4.0 X 10^3 Monocytes # (Auto) 0.7 0.0-1.0 X 10^3 Eosinophils # (Auto) 0.4 H 0.0-0.3 10^3/uL Basophils # (Auto) 0.1 0.0-0.1 10^3/uL Sodium Level 137 135-145 MMOL/L Potassium Level 3.9 3.6-5.0 MMOL/L Chloride Level 98 98-107 MMOL/L Carbon Dioxide Level 26 21-32 MMOL/L Anion Gap 13 5-14 MMOL/L Blood Urea Nitrogen 15 7-18 MG/DL Creatinine 1.12 0.60-1.30 MG/DL Estimat Glomerular Filtration Rate > 60 BUN/Creatinine Ratio 13 Glucose Level 167 H 70-105 MG/DL Calcium Level 9.6 8.5-10.1 MG/DL Urine Color YELLOW Urine Clarity CLEAR Urine pH 7 5-9 Urine Specific [place] 1.005 L 1.016-1.022 Urine Protein NEGATIVE NEGATIVE Urine Glucose (UA) 2+ H NEGATIVE Urine Ketones NEGATIVE NEGATIVE Urine Nitrite NEGATIVE NEGATIVE Urine Bilirubin NEGATIVE NEGATIVE Urine Urobilinogen NORMAL NORMAL MG/DL Urine Leukocyte Esterase NEGATIVE NEGATIVE Urine RBC (Auto) NEGATIVE NEGATIVE Urine RBC NONE /HPF Urine WBC NONE /HPF Urine Squamous Epithelial Cells RARE /HPF Urine Crystals NONE /LPF Urine Bacteria TRACE /HPF Urine Casts NONE /LPF Urine Mucus NEGATIVE /LPF Urine Culture Indicated NO My Orders Orders - PAU SILVA Ct Abdomen/Pelvis W (03/17/18 22:44) Saline Lock/Iv-Start (03/17/18 22:44) Basic Metabolic Panel (03/17/18 22:44) Cbc With Automated Diff (03/17/18 22:44) Ua Culture If Indicated (03/17/18 22:44) Ketorolac Injection (Toradol Injection) (03/17/18 22:44) Orphenadrine Injection (Norflex Injectio (03/17/18 22:44) Medications Given in ED Current Medications Medications Dose Ordered Sig/[place] Route Start Time Stop Time Status Last Admin Dose Admin Iohexol 100 ml ONCE ONCE IV 03/17/18 23:30 03/17/18 23:45 DC 03/17/18 23:19 100 ML Sodium Chloride 80 ml ONCE ONCE IV 03/17/18 23:30 03/17/18 23:45 DC 03/17/18 23:19 80 ML Vital Signs/I&O 03/17/18 21:48 Temp 98.0 Pulse 58 Resp 18 B/P (MAP) 150/77 (101) Pulse Ox 96 O2 Delivery Room Air Capillary Refill : Less Than 3 Seconds Blood Pressure Mean: 101 Diagnostic Imaging Diagonstic Imaging: CT Plain Films/CT/US/NM/MRI: abdomen, pelvis Comments no acute abdominopelvic findings. Reviewed: Reviewed Night [facility] Departure Communication (Admissions) patient seen and evaluated. Labs and a CT abdomen/pelvis obtained. Patient was given Toradol 30 mg IV and Norflex 60 mg IV with mild improvement in symptoms. Laboratory and diagnostic finding results discussed with the patient. Impression Primary Impression: Right inguinal pain Additional Impression: S/P inguinal hernia repair Disposition: 01 HOME, SELF-CARE Condition: Improved Departure-Patient Inst. Decision time for Depature: 23:50 Referrals: AUGIE DOUGLASS DO (PCP/Family) Primary Care Physician Patient Instructions: Groin Hernia Repair (DC) Add. Discharge Instructions: All discharge instructions reviewed with patient and/or family. Voiced understanding. Medications as instructed. Do not use the tramadol with hydrocodone. Tylenol extra strength 1000 mg by mouth every 6 hours as needed for pain. Ibuprofen 600 mg by mouth every 6-8 hours as needed for pain. You may use a heating pad or ice pack as needed for pain. Follow-up with Dr. Caceres this week for recheck, call tomorrow morning for appointment time. Return to the emergency department for worsened symptoms or any other concerns. Scripts Tramadol HCl (Tramadol HCl) 50 Mg Tablet 50 MG PO Q4H PRN for pain, #20 TAB 0 Refills Prov: PAU SILVA 03/17/18 Gabapentin (Neurontin) 100 Mg Capsule 100 MG PO UD, #30 CAP 0 Refills 1 cap po once on day 1, then 1 cap po bid on day 2, then 1 cap po tid Prov: PAU SILVA 03/17/18 PAU SILVA Mar 17, 2018 22:08
[2018-03-17] MEDS ORDERED: KETOROLAC 30 MG/ML VIAL IVP STA (22:44)
[2018-03-17] MEDS ORDERED: ORPHENADRINE 60 MG/2 ML (NORFLEX) AMP IV STA (22:44)
[2018-03-17 22:51] LABS: BASOPHILS # (AUTO) 0.1 10^3/uL (0.0-0.1); BASOPHILS % (AUTO) 1 % (0-10); EOSINOPHILS # (AUTO) 0.4 10^3/uL (0.0-0.3); EOSINOPHILS % (AUTO) 5 % (0-10); HEMATOCRIT 43 % (40-54); HEMOGLOBIN 14.7 G/DL (13.3-17.7); LYMPHOCYTES # (AUTO) 2.5 X 10^3 (1.0-4.0); LYMPHOCYTES % (AUTO) 31 % (12-44); MEAN CORPUSCULAR HEMOGLOBIN 29 PG (25-34); MEAN CORPUSCULAR HGB CONC 34 G/DL (32-36); MEAN CORPUSCULAR VOLUME 86 FL (80-99); MONOCYTES # (AUTO) 0.7 X 10^3 (0.0-1.0); MONOCYTES % (AUTO) 8 % (0-12); NEUTROPHILS # (AUTO) 4.4 X 10^3 (1.8-7.8); NEUTROPHILS % (AUTO) 55 % (42-75); PLATELET COUNT 232 10^3/uL (130-400); RED CELL DISTRIBUTION WIDTH 12.7 % (10.0-14.5)
[2018-03-17 23:02] LABS: BUN/CREATININE RATIO 13; CALCIUM 9.6 MG/DL (8.5-10.1); CARBON DIOXIDE 26 MMOL/L (21-32); CHLORIDE 98 MMOL/L (98-107); CREATININE SERUM 1.12 MG/DL (0.60-1.30); GFR ESTIMATED > 60; GLUCOSE 167 MG/DL (70-105); POTASSIUM 3.9 MMOL/L (3.6-5.0); SODIUM 137 MMOL/L (135-145)
[2018-03-17 23:08] LABS: BILIRUBIN,URINE NEGATIVE (NEGATIVE); CLARITY,URINE CLEAR; COLOR,URINE YELLOW; GLUCOSE, URINE (UA) 2+ (NEGATIVE); KETONES,URINE NEGATIVE (NEGATIVE); LEUKOCYTE ESTERASE ,URINE NEGATIVE (NEGATIVE); NITRITE,URINE NEGATIVE (NEGATIVE); PH,URINE 7 (5-9); PROTEIN,URINE NEGATIVE (NEGATIVE); UROBILINOGEN,URINE NORMAL (NORMAL)
[2018-03-17 23:15] LABS: BACTERIA,URINE TRACE /HPF; SQUAMOUS EPITHELIAL CELL,UR RARE /HPF
[2018-03-17] MEDS ORDERED: NS 100 ML (IVPB) BAG IV ONE (23:30)
[2018-03-17] MEDS ORDERED: IOHEXOL 350 MG/ML 100 ML (OMNIPAQUE 350) VIAL IV ONE (23:30)
[2018-03-17] MEDS ORDERED: GABA100C PO (23:52)
[2018-03-17] MEDS ORDERED: TRAM50TA2 PO (23:52)
[2018-03-18] MEDS ORDERED: DEXAMETHASONE 10 MG/ML (DECADRON) 1 ML VIAL IV ONE
[2018-03-18] MEDS ORDERED: fentaNYL INJECTION 100 MCG/2 ML AMP IVP ONE
[2018-03-18] MEDS ORDERED: GABAPENTIN 100 MG (NEURONTIN) CAP PO ONE
[2018-03-18 00:47] VITALS: BP 122/90
--- NOTE | 2018-03-18 06:47 | Diagnostic Imaging Report ---
PROCEDURE: CT abdomen and pelvis with contrast. TECHNIQUE: Multiple contiguous axial images were obtained through the abdomen and pelvis after administration of intravenous contrast. INDICATION: Groin pain after hernia surgery Findings: The heart size is normal. Lung bases are clear. There appears to be some mild fatty infiltration of the liver. The gallbladder is unremarkable. There is no biliary duct dilatation. Spleen is normal. The pancreas and adrenal glands are unremarkable. Kidneys normal in appearance. There is no evidence of nephrolithiasis or obstructive uropathy. The aorta is nonaneurysmal. Bowel gas pattern is nonspecific. There is no free air. There is no ascites. There are no focal inflammatory changes. Appendix is normal. There is no pelvic mass, adenopathy or free fluid. There are degenerative changes in the spine. There is a small fat containing umbilical hernia. IMPRESSION: Mild fatty infiltration of liver. Small fat-containing umbilical hernia. No other acute abnormality in the abdomen or pelvis. Dictated by: Dictated on workstation # [id number]
== END 2018-03-18 00:47 | disposition home or self-care (01) ==
LOC: EDUNIT# 20:29 → ER 20:31
DX: G89.18 Other acute postprocedural pain (principal); R10.31 Right lower quadrant pain; I25.10 Atherosclerotic heart disease of native coronary artery without angina pectoris; I25.2 Old myocardial infarction; I10 Essential (primary) hypertension; M10.9 Gout, unspecified; E11.9 Type 2 diabetes mellitus without complications; E78.00 Pure hypercholesterolemia, unspecified; Z79.82 Long term (current) use of aspirin; Z79.4 Long term (current) use of insulin; Z98.890 Other specified postprocedural states; Z82.49 Family history of ischemic heart disease and other diseases of the circulatory system; Z80.42 Family history of malignant neoplasm of prostate; Z95.5 Presence of coronary angioplasty implant and graft
CPT/HCPCS: 36415; 74177; 80048; 81000; 85025

== ENCOUNTER → 2018-12-11 | Outpatient (CLI) | payer MEDICARE, OTHER ==
[~2018-12-11] MED LIST changes: +GABA100C PO; -ROSU20TA PO; +ROSU20TA2 PO; -ROSU20TA31 PO; +ROSU20TA32 PO; +TRAM50TA2 PO
== END ==
LOC: CARD 09:35
PROVIDERS: ATTEND Physician Assistant
DX: I25.10 Atherosclerotic heart disease of native coronary artery without angina pectoris (principal); I35.8 Other nonrheumatic aortic valve disorders; I11.9 Hypertensive heart disease without heart failure; I51.9 Heart disease, unspecified; E78.5 Hyperlipidemia, unspecified
CPT/HCPCS: 93306

== ENCOUNTER → 2019-12-08 | Outpatient (CLI) | payer MEDICARE ==
[~2019-12-08] VITALS: Ht 185 cm; Wt 84.0 kg
[~2019-12-08] MED LIST changes: +ASPI-1238 PO; -ASPI-983 PO; +CATHETER FLUSH 10 ML SYR IV PRN; -GLIM2TAB PO; +GLIM2TAB4 PO; -MAGN400T6 PO; +MAGN400T8 PO; +REGADENOSON 0.4 MG/5 ML SYR (LEXISCAN) IV ONE; +SIMV20TA26 PO; -SIMV20TA3 PO; -TRAM50TA2 PO; +TRM50T PO
[2019-12-08 09:42] VITALS: BP 120/64
--- NOTE | 2019-12-08 12:23 | Cardiology Stress Test Report ---
Stress Test Report Date of Procedure/Referring: Date of Procedure: Dec 08, 2019 PCP Marcelino Mireles MD Admitting Physician Frederick Allen DO Indications: Coronary artery disease Baseline Heart Rate: 64 Baseline Blood Pressure: Blood Pressure Systolic: 120 Blood Pressure Diastolic: 64 Baseline Vitals Vital Signs Date Time Temp Pulse Resp B/P (MAP) Pulse Ox O2 Delivery O2 Flow Rate FiO2 12/08/19 09:42 64 120/64 (82) 98 Baseline EKG: Baseline EKG: sinus rhythm with right bundle branch block Summary After explaining the procedure to the patient, he signed a consent and then brought to the stress nuclear laboratory. Patient received 0.4 mg Lexiscan for stress test, ECG, heart rate and blood pressure were monitored continuously. Resting and stress dose of radio tracer were injected, imaging was acquired and reviewed in short axis, horizontal long axis and vertical long axis views. TID: 1.15 SSS: 1 SDS: 1 EF: 61 1. Patient tolerated Lexiscan well 2. Baseline right bundle branch block persisted during test 3. Mild decrease uptake at the apex with apical thinning, no significant ischemia or infarction on SPECT images 4. Normal left ventricular size, EF 61 percent MARCELINO MIRELES MD Dec 08, 2019 12:23
== END ==
LOC: CARD 08:00
PROVIDERS: ATTEND Internal Medicine Cardiovascular Disease
DX: I25.10 Atherosclerotic heart disease of native coronary artery without angina pectoris (principal); I11.9 Hypertensive heart disease without heart failure; E78.2 Mixed hyperlipidemia; I45.10 Unspecified right bundle-branch block
CPT/HCPCS: 78452; 93017; A9502

== ENCOUNTER → 2022-07-09 | Outpatient (CLI) | payer MEDICARE ==
[~2022-07-09] MED LIST changes: -CATHETER FLUSH 10 ML SYR IV PRN; +CLOP-31 PO; -CLOP75TA69 PO; -HYDR-3876 PO; +HYDR-3920 PO; -LISI-552 PO; +LISI10TA25 PO; +LISI20TA26 PO; -MAGN400T8 PO; +MGX400T PO; -REGADENOSON 0.4 MG/5 ML SYR (LEXISCAN) IV ONE
== END ==
LOC: CARD 10:03
PROVIDERS: ATTEND Internal Medicine Cardiovascular Disease
DX: I25.10 Atherosclerotic heart disease of native coronary artery without angina pectoris (principal)
CPT/HCPCS: 93306

== ENCOUNTER → 2022-07-10 | Outpatient (CLI) | payer MEDICARE ==
[~2022-07-10] VITALS: Ht 185 cm; Wt 79.0 kg
[~2022-07-10] MED LIST changes: +CATHETER FLUSH 10 ML SYR IVP PRN
[2022-07-10 13:53] VITALS: BP 121/64
--- NOTE | 2022-07-10 15:14 | Cardiology Stress Test Report ---
Stress Test Report Date of Procedure/Referring: Date of Procedure: July 10, 2022 PCP Frederick Douglass DO Admitting Physician Admitting Physician: Attending Physician: Laurence Mireles MD Baseline Heart Rate: 61 Baseline Blood Pressure: Blood Pressure Systolic: 121 Blood Pressure Diastolic: 64 Vital Signs Date Time Temp Pulse Resp B/P (MAP) Pulse Ox O2 Delivery O2 Flow Rate FiO2 07/10/22 13:53 61 121/64 (83) Baseline Vital Signs Vital Signs Date Time Temp Pulse Resp B/P (MAP) Pulse Ox O2 Delivery O2 Flow Rate FiO2 07/10/22 13:53 61 121/64 (83) Baseline EKG: Baseline EKG: RBBB Summary: After explaining the procedure and details to the patient, he signed the consent and was brought to the stress nuclear laboratory. Patient exercised on standard [place] protocol, EKG, heart rate and blood pressure were monitored continuously, resting and stress doses of radio tracer were injected, imaging was acquired and reviewed in the short axis, horizontal long axis and vertical long axis views Patient was able to exercise for a total of 7.30 minutes on [place] protocol, METs 9.1 Maximum heart rate 130 Maximum blood pressure 177/66 Stress EKG, Minimal nondiagnostic changes Recovery EKG, Return to baseline TID: 0.95 SSS: 1 SDS: 1 EF: 59 Conclusion: Good exercise tolerance for 7 minutes and 30 seconds on standard [place] protocol, 9.1 METS achieving 87% of maximal expected heart rate Appropriate heart rate and blood pressure response to exercise return to baseline during recovery Baseline right bundle branch block with nondiagnostic EKG changes with exercise return to baseline during recovery No ischemia or infarction noted on SPECT images Normal left ventricular size, ejection fraction 59% Copy Copies To 1: FREDERICK DOUGLASS BASHAR J MD July 10, 2022 15:14
== END ==
LOC: CARD 12:27
PROVIDERS: ATTEND Internal Medicine Cardiovascular Disease
DX: I25.10 Atherosclerotic heart disease of native coronary artery without angina pectoris (principal)
CPT/HCPCS: 78452; 93017; A9502

== ENCOUNTER 2022-08-13 18:03 | Emergency (ER) | payer MEDICARE ==
[~2022-08-13 18:03] MED LIST changes: -CATHETER FLUSH 10 ML SYR IVP PRN
--- NOTE | 2022-08-13 18:20 | ED Upper Extremity ---
General Chief Complaint: Upper Extremity Stated Complaint: HAND PAIN Source: patient Exam Limitations: no limitations (JIMMY DICKEY) History of Present Illness Date Seen by Provider: Aug 13, 2022 Time Seen by Provider: 18:18 Initial Comments Patient is a 72-year-old male who presents ED with right wrist pain. 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 He states since Friday this pain has progressively gotten worse. Pain is worse with supination flexion extension. Noted swelling on the dorsum side of the wrist. Has been taken Tylenol and ibuprofen without much improvement. Denies of any falls. No history of previous fracture. Patient denies any bruising or redness. (JIMMY DICKEY) Allergies and Home Medications Allergies Coded Allergies: No Known Drug Allergies (Unverified , 05/16/13) Patient Home Medication List Home Medication List Reviewed: Yes (JIMMY DICKEY) Aspirin (Aspirin EC) 81 Mg Tablet.dr, 81 MG PO DAILY, (Reported) Entered as Reported by: CECI ROMERO on 10/11/16 1039 Atorvastatin Calcium (Atorvastatin Calcium) 80 Mg Tablet, 80 MG PO HS, (Reported) Entered as Reported by: CECI ROMERO on 10/25/16 0910 Empagliflozin (Jardiance) 25 Mg Tablet, 25 MG PO DAILY, (Reported) Entered as Reported by: JASMYNE VINSON on 01/13/17 1532 Gabapentin (Neurontin) 100 Mg Capsule, 100 MG PO UD Prescribed by: PAU SILVA on 03/17/18 2352 Glimepiride (Glimepiride) 2 Mg Tablet, 2 MG PO DAILY, (Reported) Entered as Reported by: SAV SARMIENTO on 03/10/15 1511 Hydrocodone Bit/Acetaminophen (Lortab 5 Mg Tablet) 1 Tab Tab, 1 TAB PO Q6H PRN for PAIN-MODERATE Prescribed by: SONY CACERES on 02/11/18 1018 Hydrocodone/Acetaminophen (Hydrocodone-Acetamin 5-325 mg) 5 Mg-325 Mg Tablet, 1 TAB PO Q4H PRN for PAIN-MODERATE (5-7) Prescribed by: BHARTI SERRANO on 08/13/22 1850 Lisinopril (Lisinopril) 10 Mg Tablet, 10 MG PO DAILY, (Reported) Entered as Reported by: CECI ROMERO on 10/11/16 0910 Metformin HCl (Metformin HCl) 500 Mg Tablet, 1,000 MG PO BID, (Reported) Entered as Reported by: CEIC ROMERO on 10/15/16 1421 Lyman 3 Polyunsat Fatty Acids (Fish Oil 1,000 mg Capsule) 1,000 Mg Cap, 1,000 MG PO DAILY, (Reported) Entered as Reported by: ECCI ROMERO on 10/15/16 1421 Omeprazole Magnesium (Prilosec Otc) 20 Mg Tablet.dr, 20 MG PO DAILY PRN for HEARTBURN, (Reported) Entered as Reported by: CECI ROMERO on 10/11/16 1039 Tramadol HCl (Tramadol HCl) 50 Mg Tablet, 50 MG PO Q4H PRN for pain Prescribed by: PAU SILVA on 03/17/18 0102 Review of Systems Constitutional: No chills, No diaphoresis, No fever, No malaise, No weakness EENTM: No ear pain, No blurred vision, No double vision Respiratory: No cough, No dyspnea on exertion Cardiovascular: No chest pain Gastrointestinal: No abdominal pain, No diarrhea, No nausea, No vomiting Genitourinary: No decreased output, No discharge Musculoskeletal: No back pain; joint pain, joint swelling, muscle pain Skin: No change in color, No change in hair/nails (JIMMY DICKEY) All Other Systems Reviewed Negative Unless Noted: Yes (JIMMY DICKEY) Past Dnkjlql-Whsvsr-Kkuake Hx Patient Social History Tobacco Use?: No Substance use?: No Alcohol Use?: No Pt feels they are or have been: No (JIMMY DICKEY) Immunizations Up To Date Tetanus Booster (TDap): Unknown PED Vaccines UTD: Yes Influenza Vaccine Up-to-Date: No; Not Current (JIMMY DICKEY) Seasonal Allergies Seasonal Allergies: No (JIMMY DICKEY) Past Medical History Surgeries: Yes (CATARACTS, EYELID TUCK, bilateral inguinal herniorrhaphy) Coronary Stent, Eye Surgery, Testicular Respiratory: No Currently Using CPAP: No Currently Using BIPAP: No Cardiac: Yes (STENT PLACEMENT X3) Coronary Artery Disease, Heart Attack, High Cholesterol, Hypertension Neurological: No 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) Sexually Transmitted Disease: No HIV/AIDS: No Genitourinary: No Gastrointestinal: No Musculoskeletal: Yes Gout Endocrine: Yes Diabetes, Non-Insulin dep HEENT: Yes Cataract Cancer: No Psychosocial: No Integumentary: No Blood Disorders: No Adverse Reaction/Blood Tranf: No (JIMMY DICKEY) Family Medical History Cataract 19 FATHER Chest pain 19 MOTHER Dementia 19 MOTHER Family history: Alzheimer's disease 19 MOTHER Family history: Arthritis 19 MOTHER Family history: Diabetes mellitus 19 MOTHER Family history: Hypertension 19 FATHER 19 MOTHER G8 SISTER Headache Hypercholesterolemia 19 FATHER 19 MOTHER G8 SISTER Kidney disease 19 FATHER Prostate cancer 19 FATHER Stroke 19 FATHER Visual impairment 19 MOTHER G8 BROTHER G8 BROTHER G8 SISTER No Family History of: Abdominal aortic aneurysm [place]'s disease Alcoholism Aphasia Cancer Cancer of colon Congenital heart disease Congestive heart failure Cystic fibrosis Dysphagia Family history: Allergy Family history: Asthma Family history: Breast disease Family history: Cardiovascular disease Family history: Coronary thrombosis Family history: Gastrointestinal disease Family history: Glaucoma Family history: Osteoporosis Family history: Thyroid disorder Hearing loss Heart disease Hereditary disease History of - anemia History of - disorder History of - respiratory disease History of drug abuse Human immunodeficiency virus (HIV) seropositivity Infertile Malignant neoplasm of lung Myocardial infarction Parkinson's disease Psychotic disorder Seizure disorder Tuberculosis No Pertinent Family Hx (JIMMY DICKEY) Physical Exam Vital Signs Vital Signs - First Documented 08/13/22 18:12 Pulse 68 Resp 18 B/P (MAP) 148/77 (100) Pulse Ox 97 O2 Delivery Room Air (NARENDRA MONAHAN MD) Vital Signs Capillary Refill : (JIMMY DICKEY) Height, Weight, BMI Height: 6'1.00" Weight: 175lbs. 0.0oz. [id number]; 23.08 BMI Method:Stated General Appearance: WD/WN, no apparent distress HEENT: PERRL/EOMI, normal ENT inspection, TMs normal, pharynx normal Neck: non-tender, full range of motion, supple, normal inspection Cardiovascular: regular rate, rhythm, no edema, no gallop, no JVD Respiratory: chest non-tender, lungs clear, normal breath sounds, no respiratory distress, no accessory muscle use Gastrointestinal: normal bowel sounds, non tender, soft, no organomegaly Back: normal inspection, no CVA tenderness, no vertebral tenderness Shoulder: normal inspection, non-tender, no evidence of injury Elbow/Forearm: normal inspection, non-tender, Right Wrist: Yes limited ROM, Yes pain, Yes soft tissue tenderness (Tenderness to palpate right middle dorsal wrist. Normal active range of motion pain with flexion. Pain with supination limited. [employer] Operator strength 5 out of 5. Neurovascular intact. 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 Differential diagnosis right wrist sprain, right wrist fracture. Right wrist injury last Friday. Swelling noted on the dorsum side. Pain with flexion extension and supination. Neurovascular intact. Denies scalp. No erythema with mild swelling. X-ray was ordered due to the continuous pain. X-ray was negative for acute fracture. Patient was requesting something stronger which she was given 1 dose of hydrocodone. 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 Ice was applied. Patient was given a Velcro splint for comfort. Orthopedic follow-up in 1 to 2 weeks if pain progress. Continue with anti-inflammatories. If increased pain, redness warmth return back to ED. Return precaution were discussed. (JIMMY DICKEY) Impression Primary Impression: Wrist sprain Disposition: 01 HOME, SELF-CARE Condition: Stable Departure-Patient Inst. Decision time for Depature: 18:48 (JIMMY DICKEY) Referrals: AUGIE DOUGLASS DO (PCP/Family) Primary Care Physician LEONOR SHAFFER MD Patient Instructions: Wrist Sprain ED Add. Discharge Instructions: Velcro splint for comfort. Hydrocodone for breakthrough pain. Continue with anti-inflammatories. If continued pain for the next 1 to 2 weeks orthopedic follow-up. Wear splint throughout the day while operating. All discharge instructions reviewed with patient and/or family. Voiced understanding. Scripts Hydrocodone/Acetaminophen (Hydrocodone-Acetamin 5-325 mg) 5 Mg-325 Mg Tablet 1 TAB PO Q4H PRN for PAIN-MODERATE (5-7), #8 TAB Prov: JIMMY DICKEY 08/13/22 ATTENDING PHYSICIAN NOTE: I was physically present as attending physician in the emergency department during the care of this patient, but I was not directly involved in the decision making or delivery of care for this patient. (NARENDRA MONAHAN MD) JIMMY DICKEY Aug 13, 2022 18:20 NARENDRA MONAHAN MD Aug 15, 2022 06:28
--- NOTE | 2022-08-13 18:48 | Diagnostic Imaging Report ---
INDICATION: Pain. FINDINGS: The alignment is normal. There is no fracture or dislocation. Soft tissues are unremarkable. IMPRESSION: No acute fracture or dislocation. Dictated by: Dictated on workstation # [id number]
[2022-08-13] MEDS ORDERED: ACHD5005 PO (18:50)
[2022-08-13 18:54] VITALS: BP 148/77
[2022-08-13] MEDS ORDERED: HYDROcodone/APAP 5 MG/325 MG (LORTAB) TAB PO ONE (19:00)
== END 2022-08-13 18:55 | disposition home or self-care (01) ==
LOC: EDUNIT# 18:03 → ER 18:04
DX: S63.501A Unspecified sprain of right wrist, initial encounter (principal); Z28.310 Unvaccinated for COVID-19; X50.1XXA Overexertion from prolonged static or awkward postures, initial encounter; Y92.812 Truck as the place of occurrence of the external cause
CPT/HCPCS: 73110